=== PATIENT | male | born 1940 | race Caucasian/White ===

== ENCOUNTER 2017-01-02 07:15 | Outpatient (CLI) | payer OTHER | END 2017-01-02 07:16 | disposition home or self-care (01) | DX: E11.9 Type 2 diabetes mellitus without complications (principal); E78.5 Hyperlipidemia, unspecified; E03.9 Hypothyroidism, unspecified ==

== ENCOUNTER 2017-07-01 15:32 | Outpatient (CLI) | payer OTHER ==
[2017-07-01 14:05] LABS: ALBUMIN/GLOBULIN RATIO 1.3 (1.0-2.2); BILIRUBIN,TOTAL 0.3 mg/dL (0.2-1.0); CALCIUM 9.1 mg/dL (8.5-10.3); CREATININE 0.8 mg/dL (0.6-1.2); POTASSIUM 4.1 mmol/L (3.5-5.0); TOTAL PROTEIN 7.6 g/dL (6.7-8.2)
[2017-07-01 14:31] LABS: HEMOGLOBIN A1C 0.8 g/dL
== END 2017-07-01 15:33 | disposition home or self-care (01) ==
LOC: LAB.WCP 15:32
PROVIDERS: ATTEND Family Medicine
DX: E11.9 Type 2 diabetes mellitus without complications (principal); Z12.5 Encounter for screening for malignant neoplasm of prostate
CPT/HCPCS: 36415; 80053; 82043; 83036; 84153

== ENCOUNTER 2017-12-31 08:00 | Outpatient (CLI) | payer OTHER ==
[2017-12-31 12:39] LABS: BASOPHILS # (AUTO) 0.1 10^3/uL (0.0-0.1); BASOPHILS % (AUTO) 0.6 %; EOSINOPHILS # (AUTO) 0.6 10^3/uL (0.0-0.7); EOSINOPHILS % (AUTO) 5.7 %; HGB - HEMOGLOBIN 13.2 g/dL (14.0-18.0); LYMPHOCYTES % (AUTO) 30.3 %; MEAN CORPUSCULAR HEMOGLOBIN 29.4 pg (27.0-31.0); MEAN CORPUSCULAR HGB CONC 33.4 g/dL (32.0-36.0); MEAN PLATELET VOLUME 9.7 fL (7.4-11.4); NEUTROPHILS # (AUTO) 5.3 10^3/uL (1.5-6.6); NEUTROPHILS % (AUTO) 53.4 %; PLT - PLATELET COUNT 250 10^3/uL (130-450); RED BLOOD COUNT 4.51 10^6/uL (4.70-6.10); RED CELL DISTRIBUTION WIDTH 14.3 % (12.0-15.0)
[2017-12-31 12:55] LABS: ALBUMIN 4.3 g/dL (3.2-5.5); ALBUMIN/GLOBULIN RATIO 1.3 (1.0-2.2); ALKALINE PHOSPHATASE 62 IU/L (42-121); ALT ALANINE AMINOTRANSFERASE 26 IU/L (10-60); AST ASPARTATE AMINOTRANSFERASE 23 IU/L (10-42); BILIRUBIN,TOTAL 0.3 mg/dL (0.2-1.0); BUN - BLOOD UREA NITROGEN 23 mg/dL (6-20); CALCIUM 9.1 mg/dL (8.5-10.3); CARBON DIOXIDE - CO2 26 mmol/L (21-32); CHLORIDE 106 mmol/L (101-111); CHOL/HDL RATIO 3.7 (<5.0); CHOLESTEROL 85 mg/dL; CREATININE 0.8 mg/dL (0.6-1.2); GFR - MDRD 94 (>89); GLUCOSE 83 mg/dL (70-100); HDL CHOLESTEROL 23 mg/dL; LDL CHOLESTEROL,CALCULATED 25 mg/dL; LDL/HDL RATIO 1.1 (<3.6); SODIUM 138 mmol/L (135-145); TOTAL PROTEIN 7.6 g/dL (6.7-8.2); VLDL CHOLESTEROL 37 mg/dL
[2017-12-31 15:27] LABS: HB2 TOTAL 14.8 g/dL; HEMOGLOBIN A1C 0.73 g/dL; HEMOGLOBIN A1C % 6.7 % (4.6-6.2)
== END 2017-12-31 08:01 ==
LOC: LAB.WCP 08:00
PROVIDERS: ATTEND Family Medicine
DX: E11.9 Type 2 diabetes mellitus without complications (principal); E03.9 Hypothyroidism, unspecified
CPT/HCPCS: 36415; 80053; 80061; 83036; 83721; 84439; 84481; 85025

== ENCOUNTER 2018-07-07 07:02 | Outpatient (CLI) | payer OTHER ==
[2018-07-07 14:14] LABS: ALBUMIN 4.3 g/dL (3.2-5.5); ALBUMIN/GLOBULIN RATIO 1.2 (1.0-2.2); ALKALINE PHOSPHATASE 65 IU/L (42-121); ALT ALANINE AMINOTRANSFERASE 25 IU/L (10-60); AST ASPARTATE AMINOTRANSFERASE 20 IU/L (10-42); BILIRUBIN,TOTAL 0.8 mg/dL (0.2-1.0); BUN - BLOOD UREA NITROGEN 32 mg/dL (6-20); CALCIUM 9.6 mg/dL (8.5-10.3); CARBON DIOXIDE - CO2 25 mmol/L (21-32); CHLORIDE 103 mmol/L (101-111); CHOL/HDL RATIO 2.7 (<5.0); CHOLESTEROL 93 mg/dL; GFR - MDRD 73 (>89); GLUCOSE 89 mg/dL (70-100); HDL CHOLESTEROL 35 mg/dL; LDL CHOLESTEROL,CALCULATED 28 mg/dL; LDL/HDL RATIO 0.8 (<3.6); SODIUM 138 mmol/L (135-145); TOTAL PROTEIN 7.8 g/dL (6.7-8.2); VLDL CHOLESTEROL 30 mg/dL
[2018-07-07 14:28] LABS: BASOPHILS # (AUTO) 0.1 10^3/uL (0.0-0.1); BASOPHILS % (AUTO) 0.8 %; EOSINOPHILS # (AUTO) 0.6 10^3/uL (0.0-0.7); EOSINOPHILS % (AUTO) 5.9 %; HGB - HEMOGLOBIN 13.5 g/dL (14.0-18.0); LYMPHOCYTES # (AUTO) 3.4 10^3/uL (1.5-3.5); LYMPHOCYTES % (AUTO) 35.2 %; MEAN CORPUSCULAR HEMOGLOBIN 29.2 pg (27.0-31.0); MEAN CORPUSCULAR HGB CONC 33.8 g/dL (32.0-36.0); MEAN CORPUSCULAR VOLUME 86.1 fL (80.0-94.0); MEAN PLATELET VOLUME 9.4 fL (7.4-11.4); MONOCYTES # (AUTO) 0.9 10^3/uL (0.0-1.0); MONOCYTES % (AUTO) 9.1 %; NEUTROPHILS # (AUTO) 4.7 10^3/uL (1.5-6.6); PLT - PLATELET COUNT 269 10^3/uL (130-450); RED BLOOD COUNT 4.63 10^6/uL (4.70-6.10); RED CELL DISTRIBUTION WIDTH 14.1 % (12.0-15.0); WHITE BLOOD COUNT 9.7 x10^3/uL (4.8-10.8)
[2018-07-07 14:36] LABS: HB2 TOTAL 14.4 g/dL; HEMOGLOBIN A1C 0.7 g/dL; HEMOGLOBIN A1C % 6.6 % (4.6-6.2)
== END 2018-07-07 07:03 ==
LOC: LAB.WCP 07:02
PROVIDERS: ATTEND Family Medicine
DX: I10 Essential (primary) hypertension (principal); E78.5 Hyperlipidemia, unspecified; E11.9 Type 2 diabetes mellitus without complications; Z12.5 Encounter for screening for malignant neoplasm of prostate; E03.9 Hypothyroidism, unspecified
CPT/HCPCS: 36415; 80053; 80061; 82043; 83036; 83721; 84153; 84443; 85025

== ENCOUNTER 2018-10-11 07:19 | Outpatient (CLI) | payer OTHER ==
[2018-10-11] MEDS ORDERED: IOVERSOL 320 50 ML VIAL ONE (07:29)
[2018-10-11] MEDS ORDERED: IOVERSOL 320 100 ML VIAL IVP ONE ×2 (07:29→08:27)
[2018-10-11 08:06] LABS: CREATININE 0.8 mg/dL (0.6-1.2)
--- NOTE | 2018-10-11 09:27 | CT Report ---
Reason: LUNG CA Procedure Date: 10/11/2018 Accession Number: [id number] / [id number] Procedure: CT - Abdomen/Pelvis W/WO CPT Code: FULL RESULT: EXAM: CT ABDOMEN WITHOUT AND WITH CONTRAST EXAM DATE: 10/11/2018 08:32 AM. HISTORY: LUNG CA. COMPARISON: None. TECHNIQUE: Routine helical CT imaging was performed through the abdomen before and after administration of IV contrast: OPTI 320 90mL. Enteric contrast: No. Reconstruction: Coronal and sagittal. In accordance with CT protocol optimization, one or more of the following dose reduction techniques were utilized for this exam: automated exposure control, adjustment of mA and/or KV based on patient size, or use of iterative reconstructive technique. FINDINGS: Lung Bases: Innumerable randomly distributed pulmonary nodules throughout the right and left lung bases measuring up to 8 mm in the right lung base (series 5, image 1). Bilateral small pleural effusions. Liver: Normal. No masses. Gallbladder/Bile Ducts: Unremarkable. Spleen: Normal. Pancreas: Normal. No masses or ductal obstruction. Adrenal Glands: Normal. Kidneys: 3 simple appearing cysts in the left kidney measuring up to 5.6 cm. No hydronephrosis or renal calculus. Peritoneal Cavity/Bowel: Diverticulosis without diverticulitis. No bowel obstruction or inflammatory process associated with the bowel. The appendix is well visualized and normal. Vasculature: No aneurysms or other significant abnormality. Bones: No significant abnormality. Other: None. IMPRESSION: 1. Innumerable randomly distributed pulmonary nodules throughout the right and left lung bases measuring up to 8 mm in the right lung base. Findings consistent with known diagnosis of lung cancer. 2. No evidence of metastatic disease below the diaphragm. RADIA
[2018-10-14] MEDS ORDERED: IOVERSOL 320 50 ML VIAL PO ONE (16:40)
== END 2018-10-11 07:20 | disposition home or self-care (01) ==
LOC: DI 07:19
PROVIDERS: ATTEND Nurse Practitioner Adult Health
DX: C34.90 Malignant neoplasm of unspecified part of unspecified bronchus or lung (principal)
CPT/HCPCS: 36415; 74178; 82565; Q9967

== ENCOUNTER 2018-11-01 07:34 | Outpatient (CLI) | payer OTHER ==
[2018-11-01] MEDS ORDERED: GADOBUTROL 10 MMOL/10 ML VIAL ONE (09:02)
[2018-11-01] MEDS ORDERED: GADOBUTROL 10 MMOL/10 ML VIAL IVP ONE (10:08)
--- NOTE | 2018-11-01 12:53 | MRI Report ---
Reason: LUNG CA Procedure Date: 11/01/2018 Accession Number: [id number] / [id number] Procedure: MRI - Brain W/WO CPT Code: FULL RESULT: EXAM: MRI BRAIN WITHOUT AND WITH CONTRAST EXAM DATE: 11/01/2018 09:01 AM. CLINICAL HISTORY: Pain; headache. COMPARISON: None. TECHNIQUE: Multiplanar, multisequence T1-weighted and fluid-sensitive MR sequences of the brain were performed. Sequences optimized for routine evaluation. Other: None. IV Contrast: 8 mL Gadavist. FINDINGS: The diffusion-weighted images are normal. There is no evidence of acute or subacute cerebral infarction. The corpus callosum is of normal size and configuration. The pituitary and sella are normal. The craniocervical junction is normal. There is a mass partially within the provided field of view best demonstrated on the coronal T2 fat-saturated images measuring 2.2 x 2.2 cm (16, 901). This appears to likely represent adenopathy within the right spinal accessory chain. Again this is only partially within the provided field of view. It is suspicious for metastatic adenopathy. Further evaluation can be obtained with a CT scan of the neck with contrast. Recommend correlation. The bilateral parotid spaces exhibit normal signal intensity. The cerebral vascular flow voids are patent. The images are degraded by motion. There are small mucous retention cysts at the base of the right and left maxillary sinuses. There is mild mucosal thickening of the right frontal sinus, right frontal recess, and the bilateral ethmoid air cells. There is no obstructing pattern of sinus disease. The FLAIR images demonstrate multiple punctate and confluent areas of T2 hyperintensity within the subcortical, deep, and periventricular white matter. This is consistent with a mild to moderate degree of chronic small vessel ischemia. There is enlargement of the lateral ventricles and the third ventricle but not out of proportion to the enlargement of the cerebral sulci. This is consistent with a mild degree of generalized volume loss. There is fluid signal intensity within multiple mastoid air cells bilaterally. The cerebral vascular flow voids are patent. The T2* sequence is normal. There is no evidence of subacute or chronic hemorrhage. There is normal enhancement within the deep venous sinuses. IMPRESSION: 1. There is no evidence of acute or subacute cerebral infarction. 2. There is a mass partially within the provided field of view which appears to be within the right spinal accessory chain measuring 2.2 x 2.2 cm. This likely reflects adenopathy of the right spinal accessory chain. The overall appearance would favor metastatic adenopathy. Recommend correlation. Further evaluation can be obtained with CT scan of the neck with contrast. 3. There is a mild to moderate degree of chronic small vessel ischemia and a mild degree of generalized volume loss. The call report notification system was initiated by Dr. Jorden Flores at 10:39 AM on 11/01/2018. The above findings were discussed with Marlo Castano by Dr. Jorden Flores at 11:29 AM on 11/01/2018.
== END 2018-11-01 07:35 | disposition home or self-care (01) ==
LOC: DI 07:34
PROVIDERS: ATTEND Nurse Practitioner Adult Health
DX: C34.90 Malignant neoplasm of unspecified part of unspecified bronchus or lung (principal); I67.82 Cerebral ischemia
CPT/HCPCS: 70553; A9585

== ENCOUNTER 2018-11-04 08:14 | Outpatient (CLI) | payer OTHER ==
[2018-11-04 08:56] LABS: INR 1.2 (0.8-1.2); PT - PROTHROMBIN TIME 13.1 secs (9.9-12.6)
[2018-11-04 09:03] LABS: PARTIAL THROMBOPLASTIN TIME 32.4 secs (24.9-33.3)
--- NOTE | 2018-11-04 11:41 | Ultrasound Report ---
Reason: METS LUNG CA Procedure Date: 11/04/2018 Accession Number: [id number] / [id number] Procedure: US - Thoracentesis Puncture CPT Code: FULL RESULT: EXAM: ULTRASOUND-GUIDED THORACENTESIS EXAM DATE: 11/04/2018 10:51 AM. CLINICAL HISTORY: Metastatic LUNG CA. COMPARISON: 09/27/2018. TECHNIQUE: Risks, benefits and alternatives to the procedure were discussed with the patient. All questions answered. Written and verbal consent obtained. Patient was placed in the sitting position and the skin overlying the right effusion marked with sonographic guidance. The skin was sterilely prepped and draped, and 1% buffered lidocaine and 0.5% Sensorcaine was used for local anesthesia. An 18-gauge Tello centesis catheter was advanced into the pleural space and fluid aspirated. Upon completion, the catheter was removed. FINDINGS: A total of 110 mL of bloody fluid was removed without immediate complication and sent to the lab for evaluation. Patient tolerated procedure well. Postprocedure Chest X-Ray shows no evidence of a pneumothorax. IMPRESSION: Ultrasound-guided diagnostic right thoracentesis without immediate complications. RADIA
[2018-11-04] MEDS ORDERED: BUPIVACAINE 0.5%-EPI 1:200000 PF 10 ML VIAL SUBQ ONE (11:51)
[2018-11-04] MEDS ORDERED: BUFFERED LIDOCAINE 10 ML SYRINGE IU ONE (11:51)
--- NOTE | 2018-11-04 12:03 | XRAY Report ---
Reason: S/P THORA Procedure Date: 11/04/2018 Accession Number: [id number] / [id number] Procedure: XR - Chest 1 View X-Ray CPT Code: 93391 FULL RESULT: EXAM: CHEST RADIOGRAPHY EXAM DATE: 11/04/2018 11:33 AM. CLINICAL HISTORY: Status post right thoracentesis. COMPARISON: 09/27/2018 TECHNIQUE: 1 view. FINDINGS IMPRESSION: No pneumothorax status post right thoracentesis. RADIA
== END 2018-11-04 08:15 | disposition home or self-care (01) ==
LOC: DI 08:14
PROVIDERS: ATTEND Internal Medicine Hematology & Oncology
DX: C34.90 Malignant neoplasm of unspecified part of unspecified bronchus or lung (principal)
CPT/HCPCS: 32555; 36415; 71045; 85610; 85730

== ENCOUNTER 2018-12-09 08:04 | Outpatient (CLI) | payer OTHER | END 2018-12-09 08:05 | disposition home or self-care (01) | LOC: DI.WCP 08:04 | PROVIDERS: ATTEND Family Medicine | DX: Z53.9 Procedure and treatment not carried out, unspecified reason (principal) ==

== ENCOUNTER 2018-12-30 06:07 | Outpatient (CLI) | payer OTHER | END 2018-12-30 06:08 | disposition critical access hospital (66) | LOC: EMS 06:07 | PROVIDERS: ATTEND Surgery | DX: R40.20 Unspecified coma (principal); C34.90 Malignant neoplasm of unspecified part of unspecified bronchus or lung; Z79.899 Other long term (current) drug therapy | CPT/HCPCS: A0425; A0427 ==

== ENCOUNTER 2018-12-30 06:23 | Emergency (ER) | payer OTHER ==
[2018-12-30] MEDS ORDERED: HEPARIN 5,000 UNIT/ML VIAL ONE (06:35)
[2018-12-30] MEDS ORDERED: CLOPIDOGREL 300 MG TABLET PO ONE (06:35)
[2018-12-30] MEDS ORDERED: NITROGLYCERIN SL 0.4 MG TABLET SL ONE (06:35)
[2018-12-30] MEDS ORDERED: ASPIRIN CHEW 81 MG TABLET ONE (06:35)
[2018-12-30] MEDS ORDERED: METOPROLOL TARTRATE 50 MG TABLET ONE (06:35)
[2018-12-30] MEDS ORDERED: HEPARIN 25000UNITS/500ML (D5W) 25,000 UNIT/500 ML BAG IV ONE (06:36)
[2018-12-30] MEDS ORDERED: PROPOFOL 200 MG/20 ML VIAL IVP ONE ×2 (06:36→06:38)
[2018-12-30] MEDS ORDERED: PROPOFOL 1000 MG/100 ML 100 ML IV ONE (06:37)
[2018-12-30] MEDS ORDERED: MIDAZOLAM 2 MG/2 ML VIAL ONE (06:37)
[2018-12-30] MEDS ORDERED: KETAMINE 500 MG/10 ML VIAL ONE (06:37)
[2018-12-30] MEDS ORDERED: ETOMIDATE 40 MG/20 ML VIAL IVP ONE (06:37)
[2018-12-30] MEDS ORDERED: SUCCINYLCHOLINE 200 MG/10 ML VIAL ONE (06:38)
[2018-12-30] MEDS ORDERED: ROCURONIUM 50 MG/5 ML VIAL IVP ONE (06:38)
--- NOTE | 2018-12-30 06:41 | ED Physician Documentation ---
PD HPI ALTERED MENTAL STATUS - Stated complaint Stated Complaint: UNRESPONSIVE - History obtained from History obtained from: Family, EMS - History of Present Illness Timing - onset: Unknown (last known normal was 22:00 last night. This morning at 5:30 AM, found he was pale, diaphoretic and minimally responsive) Timing - details: Still present Quality / character: Unresponsive Contributing factors: Diabetic. No: Anticoagulated Basline status: Alert and oriented X 3, Ambulatory, Independent Similar symptoms before: Has not had sx before - Additional information Additional information: found patient unresponsive at 5:30 AM this morning; she says he was baselin e (AAOx 3) when they went to sleep last night at 22:00. BIBA, given duoneb en route for dyspnea and 82% pulse ox (on 2 liters when medics first arrived). Per medic report, patient was minimally responsive when they first arrived but en route has become completely unresponsive to verbal, tactile, and painful stimuli. On arrival, breathing is assisted with BVM and he is unresponsive to even painful stimulus. I had brief discussion with family regarding the emergent need for intubation to ensure that this would be in accordance with any written or discussed issues regarding DNR/advanced directive issues, and family indicates that patient has not written nor indicated any wish to withhold any such treatment. Review of Systems Unable to obtain: Unresponsive PD PAST MEDICAL HISTORY - Past Medical History Past Medical History: Yes Cardiovascular: Hypertension Endocrine/Autoimmune: Type 1 diabetes, HyPOthyroidism Other Past Medical History: lung cancer (started PO chemotherapy this past weekend) - Present Medications Home Medications: Ambulatory Orders Medication Instructions Recorded Confirmed Aspirin [Aspir 81] 81 mg PO DAILY 02/16/15 11/16/18 Felodipine [Felodipine ER] 10 mg PO DAILY 02/16/15 11/16/18 Hydrochlorothiazide 25 mg PO DAILY 02/16/15 11/16/18 Insulin Glargine,Hum.rec.anlog 50 unit SQ DAILY 02/16/15 11/16/18 [Lantus] Levothyroxine [Synthroid] 25 mcg PO DAILY 02/16/15 11/16/18 Metformin HCl [Glucophage] 1,000 mg PO BID 02/16/15 11/16/18 raNITIdine [Zantac] 1 mg ORAL BID 02/16/15 11/16/18 Atorvastatin [Lipitor] 10 mg 12/30/18 Dabrafenib Mesylate [Tafinlar] 75 mg PO 12/30/18 Metoprolol Tartrate 100 mg PO 12/30/18 Trametinib Dimethyl Sulfoxide 2 mg PO 12/30/18 [Mekinist] - Allergies Allergies/Adverse Reactions: Allergies Allergy/AdvReac Type Severity Reaction Status Date / Time No Known Drug Allergies Allergy Verified 12/30/18 06:29 PD ED PE NORMAL - Vitals Vital signs reviewed: Yes - General General: Well developed/nourished - Cardiac Cardiac: RRR, No murmur - Abdomen Abdomen: Soft, Non tender, Non distended - Extremities Extremities: No edema - Neuro Eye Opening: None Motor: None Verbal: None GCS Score: 3 PD ED PE EXPANDED - General General: Unresponsive, Other (spontaneous respirations assisted with BVM) - Eyes Eyes: Other (pupils are equal, midsize, minimally reactive. no intentional gaze, no blink or corneal reflex) - Respiratory Respiratory: Rhonchi (diffuse course rhonchi; diminished right lung uribe) Results - Vitals Vitals: Vital Signs - 24 hr 12/30/18 12/30/18 12/30/18 06:24 07:07 07:10 Temperature 36.0 C L 35.5 C L 35.6 C L Heart Rate 83 61 67 Respiratory 20 10 L 15 Rate Blood Pressure 145/101 H 89/64 L 142/62 H O2 Saturation 78 L 94 12/30/18 12/30/18 12/30/18 07:18 07:30 07:34 Temperature 35.7 C L 35.7 C L Heart Rate 65 57 L 60 Respiratory 12 16 Rate Blood Pressure 90/71 90/71 O2 Saturation 95 91 L 12/30/18 12/30/18 12/30/18 07:42 07:50 07:52 Temperature 35.7 C L 35.7 C L 35.7 C L Heart Rate 64 56 L 50 L Respiratory 16 16 12 Rate Blood Pressure 62/45 L 75/62 L 93/58 L O2 Saturation 93 73 L 67 L 12/30/18 12/30/18 12/30/18 07:56 08:00 08:05 Temperature 35.7 C L 35.6 C L Heart Rate 71 62 70 Respiratory 24 13 10 L Rate Blood Pressure 93/58 L 139/66 H 165/67 H O2 Saturation 88 L 97 93 12/30/18 12/30/18 12/30/18 08:12 08:16 08:22 Temperature 35.4 C L 35.4 C L Heart Rate 70 63 69 Respiratory 22 22 22 Rate Blood Pressure 124/64 124/64 118/64 O2 Saturation 100 98 97 12/30/18 12/30/18 12/30/18 08:28 08:30 08:37 Temperature 35.3 C L 35.3 C L 35.3 C L Heart Rate 116 H 64 64 Respiratory 20 22 22 Rate Blood Pressure 107/63 108/62 110/63 O2 Saturation 97 95 96 12/30/18 12/30/18 12/30/18 08:44 08:47 08:51 Temperature 35.3 C L 35.3 C L 35.3 C L Heart Rate 63 64 62 Respiratory 17 18 22 Rate Blood Pressure 90/55 L 103/56 L 102/53 L O2 Saturation 99 95 96 12/30/18 12/30/18 08:58 09:03 Temperature 35.2 C L 35.2 C L Heart Rate 64 62 Respiratory 22 22 Rate Blood Pressure 111/53 L 101/59 L O2 Saturation 97 96 Oxygen O2 Source Mechanical ventilator - Labs Labs: Laboratory Tests 12/30/18 12/30/18 12/30/18 06:40 06:40 06:40 WBC 15.9 H RBC 5.05 Hgb 13.7 L Hct 41.2 L MCV 81.5 MCH 27.0 MCHC 33.2 RDW 14.8 Plt Count 448 MPV 8.2 Neut # (Auto) 12.9 H Lymph # (Auto) 2.0 [place]oup # (Auto) 0.9 Eos # (Auto) 0.0 Baso # (Auto) 0.1 Absolute Nucleated RBC 0.01 Nucleated RBC % 0.1 PT 13.3 H INR 1.2 APTT 35.4 H Bld Gas Analysis Time Sample Site ABG pH ABG pCO2 ABG pO2 ABG HCO3 ABG Total CO2 ABG O2 Saturation ABG Base Excess Kieran Test Respiration Rate O2 Delivery Device Vent Mode FiO2 Tidal Volume PEEP Pressure Support Vent Sodium 136 Potassium 4.3 Chloride 88 L Carbon Dioxide 40 H* Anion Gap 8.0 BUN 24 H Creatinine 0.6 Estimated GFR (MDRD) 131 Glucose 77 Lactic Acid Calcium 9.2 Total Bilirubin 0.6 AST 28 ALT 22 Alkaline Phosphatase 89 Troponin I B-Natriuretic Peptide Total Protein 7.9 Albumin 3.4 Globulin 4.5 H Albumin/Globulin Ratio 0.8 L Lipase 26 Urine Color Urine Clarity Urine pH Ur Specific [place] Urine Protein Urine Glucose (UA) Urine Ketones Urine Occult Blood Urine Nitrite Urine Bilirubin Urine Urobilinogen Ur Leukocyte Esterase Urine RBC Urine WBC Ur Squamous Epith Cells Urine Crystals Urine Bacteria Urine Casts Ur Microscopic Review Urine Culture Comments 12/30/18 12/30/18 12/30/18 06:40 06:40 06:59 WBC RBC Hgb Hct MCV MCH MCHC RDW Plt Count MPV Neut # (Auto) Lymph # (Auto) [place] # (Auto) Eos # (Auto) Baso # (Auto) Absolute Nucleated RBC Nucleated RBC % PT INR APTT Bld Gas Analysis Time Sample Site ABG pH ABG pCO2 ABG pO2 ABG HCO3 ABG Total CO2 ABG O2 Saturation ABG Base Excess Kieran Test Respiration Rate O2 Delivery Device Vent Mode FiO2 Tidal Volume PEEP Pressure Support Vent Sodium Potassium Chloride Carbon Dioxide Anion Gap BUN Creatinine Estimated GFR (MDRD) Glucose Lactic Acid Calcium Total Bilirubin AST ALT Alkaline Phosphatase Troponin I < 0.04 B-Natriuretic Peptide 34 Total Protein Albumin Globulin Albumin/Globulin Ratio Lipase Urine Color YELLOW Urine Clarity CLEAR Urine pH 6.0 Ur Specific [place] >=1.030 H Urine Protein >=300 Urine Glucose (UA) NEGATIVE Urine Ketones NEGATIVE Urine Occult Blood SMALL H Urine Nitrite NEGATIVE Urine Bilirubin NEGATIVE Urine Urobilinogen 0.2 (NORMAL) Ur Leukocyte Esterase NEGATIVE Urine RBC 0-5 Urine WBC 0-3 Ur Squamous Epith Cells RARE Squamous Urine Crystals 11-25 Ca Oxalate Urine Bacteria Rare Urine Casts 11-25 Granular Casts Ur Microscopic Review INDICATED Urine Culture Comments NOT INDICATED 12/30/18 12/30/18 06:59 07:32 WBC RBC Hgb Hct MCV MCH MCHC RDW Plt Count MPV Neut # (Auto) Lymph # (Auto) [place] # (Auto) Eos # (Auto) Baso # (Auto) Absolute Nucleated RBC Nucleated RBC % PT INR APTT Bld Gas Analysis Time 0742 Sample Site RIGHT RADIAL ABG pH 7.31 L ABG pCO2 74 H* ABG pO2 63 L ABG HCO3 37.0 H ABG Total CO2 39.0 H ABG O2 Saturation 88 L ABG Base Excess 11.0 H Kieran Test POSITIVE Respiration Rate 16 O2 Delivery Device VENTILATOR Vent Mode SIMV FiO2 100.00 Tidal Volume 500 PEEP 5 Pressure Support Vent 12 Sodium Potassium Chloride Carbon Dioxide Anion Gap BUN Creatinine Estimated GFR (MDRD) Glucose Lactic Acid 1.0 Calcium Total Bilirubin AST ALT Alkaline Phosphatase Troponin I B-Natriuretic Peptide Total Protein Albumin Globulin Albumin/Globulin Ratio Lipase Urine Color Urine Clarity Urine pH Ur Specific [place] Urine Protein Urine Glucose (UA) Urine Ketones Urine Occult Blood Urine Nitrite Urine Bilirubin Urine Urobilinogen Ur Leukocyte Esterase Urine RBC Urine WBC Ur Squamous Epith Cells Urine Crystals Urine Bacteria Urine Casts Ur Microscopic Review Urine Culture Comments - Rads (name of study) chest xray Radiology: Prelim report reviewed, See rad report CT head Radiology: Prelim report reviewed, See rad report Procedures - Intubation Provider: Emergency physician Medications: Propofol, Succinylcholine Blade: Glidescope Tube: Size-enter number (7.5), Cuffed, Marked at lips-enter cm (23) Confirmation: Direct visualization (via glidescope), Bilateral breath sounds, No abdominal breath sound, End tidal CO2, Pulse ox, Chest xray Complications: No compications PD MEDICAL DECISION MAKING - ED course Complexity details: reviewed old records, reviewed results, re-evaluated patient, considered differential, d/w family ED course: within 1-2 minutes of intubation, pulse ox improved to 100%. He started showing purposeful movements after approximately 10-15 minutes and even opened eyes on command. He was thus given more propofol boluses and drip was increased until he was sedated adequately for CTH. He subsequently became hypotensive and this sustained despite decreasing the propofol drip and ongoing IV fluid boluses. He subsequently desaturated gradually to as low as mid 60s, but both his pulse ox and his blood pressure rapidly improved with bag-valve mask. At this point I turned the case over to Dr. Bertrand (oncoming ED physician). Central line placed by Dr. Bertrand and he arranged for transport of patient (ICU is full at [facility]). - Critical Care Time(min): 60 Time Includes: Direct patient care, Review records, Reassess patient, Document care, Coordinate care, Family consult for tx aug, See progress note Data interpretation: Labs, Pulse ox, ABG, CXR, See progress note Procedures included in critical care time: See progress note Procedures excluded from critical care time: See progress note Departure - Departure Disposition: 02 Transfer Acute Care Hosp Clinical Impression: Respiratory failure, Altered mental status, Hypoxia, Metastatic primary lung cancer Condition: Serious
[2018-12-30] MEDS ORDERED: PROPOFOL 1000 MG/100 ML 100 ML IV STA ×2 (06:55→06:57)
[2018-12-30] MEDS ORDERED: SUCCINYLCHOLINE 200 MG/10 ML VIAL IVP STA (06:55)
[2018-12-30] MEDS ORDERED: SODIUM CHLORIDE 0.9% 500 ML IV STA (06:55)
[2018-12-30] MEDS ORDERED: PROPOFOL 200 MG/20 ML VIAL IVP STA ×3 (06:56→06:57)
[2018-12-30 06:58] LABS: BASOPHILS # (AUTO) 0.1 10^3/uL (0.0-0.1); BASOPHILS % (AUTO) 0.8 %; EOSINOPHILS % (AUTO) 0.2 %; HGB - HEMOGLOBIN 13.7 g/dL (14.0-18.0); LYMPHOCYTES % (AUTO) 12.7 %; MEAN CORPUSCULAR HGB CONC 33.2 g/dL (32.0-36.0); MEAN CORPUSCULAR VOLUME 81.5 fL (80.0-94.0); MEAN PLATELET VOLUME 8.2 fL (7.4-11.4); MONOCYTES # (AUTO) 0.9 10^3/uL (0.0-1.0); MONOCYTES % (AUTO) 5.4 %; NEUTROPHILS # (AUTO) 12.9 10^3/uL (1.5-6.6); NEUTROPHILS % (AUTO) 80.9 %; PLT - PLATELET COUNT 448 10^3/uL (130-450); RED BLOOD COUNT 5.05 10^6/uL (4.70-6.10); RED CELL DISTRIBUTION WIDTH 14.8 % (12.0-15.0); WHITE BLOOD COUNT 15.9 x10^3/uL (4.8-10.8)
[2018-12-30 06:59] LABS: BILIRUBIN,URINE NEGATIVE (NEGATIVE); GLUCOSE, URINE (UA) NEGATIVE (NEGATIVE); KETONES,URINE (UA) NEGATIVE (NEGATIVE); LEUKOCYTE ESTERASE, URINE NEGATIVE (NEGATIVE); NITRITE,URINE NEGATIVE (NEGATIVE); OCCULT BLOOD,URINE SMALL (NEGATIVE); PROTEIN,URINE >=300 mg/dL (NEGATIVE); UROBILINOGEN,URINE 0.2 (NORMAL) E.U./dL (NORMAL)
[2018-12-30 07:03] LABS: CLARITY,URINE CLEAR (CLEAR)
[2018-12-30 07:13] LABS: INR 1.2 (0.8-1.2); PT - PROTHROMBIN TIME 13.3 secs (9.9-12.6)
--- NOTE | 2018-12-30 07:14 | XRAY Report ---
Reason: chest pain Procedure Date: 12/30/2018 Accession Number: [id number] / [id number] Procedure: XR - Chest 1 View X-Ray CPT Code: 18596 FULL RESULT: EXAM: CHEST RADIOGRAPHY EXAM DATE: 12/30/2018 06:56 AM. CLINICAL HISTORY: Chest pain. COMPARISON: CHEST 2 VIEW 12/09/2018 7:55 AM ABDOMEN/PELVIS W/WO 10/11/2018 8:15 AM. TECHNIQUE: Supine AP view. FINDINGS: Lungs/Pleura: The endotracheal tube is now present with its tip 5 cm above the fanny. There is a new moderate right pleural effusion. As before, there are innumerable tiny nodules throughout both lungs. There is new mild bandlike opacity at the right lung base suggesting atelectasis. There is a small left pleural effusion, as before. There is increased mild wispy left basilar airspace opacity suggesting atelectasis. There is no gross pneumothorax on this supine study. Mediastinum: Within exam limitations, the cardiomediastinal contour is normal. There is mild aortic arch calcification. There is an orogastric tube coursing into the stomach, tip not visualized. Other: None. IMPRESSION: 1. Endotracheal tube 5 cm above the fanny. 2. Orogastric tube coursing into the stomach. 3. New moderate right and unchanged small left pleural effusions. 4. Increased mild wispy bibasilar airspace opacities suggesting atelectasis. 5. Innumerable tiny bilateral lung nodules as before suggesting metastases. RADIA
[2018-12-30 07:16] LABS: BACTERIA,URINE Rare /HPF (None Seen); RBC,URINE 0-5 /HPF (0-5); SQUAMOUS EPITHELIAL CELL,UR RARE Squamous (<= Few)
[2018-12-30 07:18] LABS: CRYSTALS,URINE 11-25 Ca Oxalate /LPF
[2018-12-30 07:20] LABS: PARTIAL THROMBOPLASTIN TIME 35.4 secs (24.9-33.3)
[2018-12-30] MEDS ORDERED: KETAMINE 500 MG/10 ML VIAL IVP STA (07:27)
[2018-12-30 07:33] LABS: ALBUMIN 3.4 g/dL (3.2-5.5); ALBUMIN/GLOBULIN RATIO 0.8 (1.0-2.2); BILIRUBIN,TOTAL 0.6 mg/dL (0.2-1.0); CALCIUM 9.2 mg/dL (8.5-10.3); CREATININE 0.6 mg/dL (0.6-1.2); TOTAL PROTEIN 7.9 g/dL (6.7-8.2)
--- NOTE | 2018-12-30 07:44 | CT Report ---
Reason: AMS Procedure Date: 12/30/2018 Accession Number: [id number] / [id number] Procedure: CT - HEAD WO CPT Code: FULL RESULT: EXAM: CT HEAD EXAM DATE: 12/30/2018 07:09 AM. CLINICAL HISTORY: Altered mental status. COMPARISON: BRAIN W/WO 11/01/2018 9:01 AM. TECHNIQUE: Multiaxial CT images were obtained from the foramen magnum to the vertex. Reformats: Sagittal and coronal. IV contrast: None. In accordance with CT protocol optimization, one or more of the following dose reduction techniques were utilized for this exam: automated exposure control, adjustment of mA and/or KV based on patient size, or use of iterative reconstructive technique. FINDINGS: Parenchyma: No intraparenchymal hemorrhage. No evidence of mass, midline shift, or CT findings of infarction. Gonzales-white differentiation is distinct. Extraaxial Spaces: Normal for age. No subdural or epidural collections identified. Ventricles: Normal in size and position. Sinuses and Orbits: The patient is intubated. A nasoenteric tube is present. There is mild mucosal thickening of the bilateral ethmoid air cells. There are polyps or mucosal retention cyst in the bilateral maxillary sinuses. There is mild mucosal thickening of the right frontal sinus. The visualized paranasal sinuses and mastoid air cells are otherwise clear. The orbits are unremarkable. Bones: No evidence of fracture or calvarial defect. Other: There is a probable enlarged right posterior cervical lymph node partially visualized at the inferior margin of the images. The included portion measures approximately 1.8 x 1.6 cm in the axial plane (series 3 image 1). This corresponds to the mass seen on prior brain MRI. IMPRESSION: 1. No intracranial hemorrhage, mass-effect, CT evidence of acute infarct, or other acute intracranial abnormality. 2. Right posterior enlarged cervical lymph node partially visualized at the inferior margin of the images, corresponding to the mass seen on prior brain MRI. RADIA
[2018-12-30 07:45] LABS: ABG PH 7.31 (7.35-7.45); ABG PO2 63 mmHg (80-100)
[2018-12-30 07:46] LABS: ABG OXYGEN SATURATION 88 % (94-98); ALLEN TEST POSITIVE
[2018-12-30 07:49] LABS: ABG PCO2 74 mmHg (34-45)
[2018-12-30] MEDS ORDERED: SODIUM CHLORIDE 0.9% 1,000 ML IV ONE ×2 (07:53→08:49)
[2018-12-30] MEDS ORDERED: VECURONIUM 10 MG VIAL IVP STA (07:59)
[2018-12-30] MEDS ORDERED: WATER FOR INJECTION,STERILE 10 ML ONE (08:06)
--- NOTE | 2018-12-30 08:41 | ED Physician Documentation ---
History of Present Illness - Stated complaint Stated Complaint: UNRESPONSIVE - Chief complaint Chief Complaint: Critical Care - History obtained from History obtained from: EMS - History of Present Illness Timing: Today Pain level max: 0 Pain level now: 0 PD PAST MEDICAL HISTORY - Past Medical History Past Medical History: Yes Cardiovascular: Hypertension, High cholesterol Respiratory: COPD Endocrine/Autoimmune: Type 2 diabetes, HyPOthyroidism GI: GERD : None HEENT: None Psych: None Musculoskeletal: Osteoarthritis Derm: None Other Past Medical History: lung CA - Past Surgical History General: Colonoscopy, EGD - Present Medications Home Medications: Ambulatory Orders Medication Instructions Recorded Confirmed Aspirin [Aspir 81] 81 mg PO DAILY 02/16/15 11/16/18 Felodipine [Felodipine ER] 10 mg PO DAILY 02/16/15 11/16/18 Hydrochlorothiazide 25 mg PO DAILY 02/16/15 11/16/18 Insulin Glargine,Hum.rec.anlog 50 unit SQ DAILY 02/16/15 11/16/18 [Lantus] Levothyroxine [Synthroid] 25 mcg PO DAILY 02/16/15 11/16/18 Metformin HCl [Glucophage] 1,000 mg PO BID 02/16/15 11/16/18 raNITIdine [Zantac] 1 mg ORAL BID 02/16/15 11/16/18 Atorvastatin [Lipitor] 10 mg 12/30/18 Dabrafenib Mesylate [Tafinlar] 75 mg PO 12/30/18 Metoprolol Tartrate 100 mg PO 12/30/18 Trametinib Dimethyl Sulfoxide 2 mg PO 12/30/18 [Mekinist] - Allergies Allergies/Adverse Reactions: Allergies Allergy/AdvReac Type Severity Reaction Status Date / Time No Known Drug Allergies Allergy Verified 12/30/18 06:29 - Social History Does the pt smoke?: No Smoking Status: Never smoker - POLST Patient has POLST: No PD ED PE NORMAL - Vitals Vital signs reviewed: Yes - General General: Other (intubated) - HEENT HEENT: Moist mucous membranes - Neck Neck: Other (LAD B) - Cardiac Cardiac: RRR - Respiratory Respiratory: Other (rhonchi B) - Abdomen Abdomen: Other (distended abd) - Derm Derm: Warm and dry - Extremities Extremities: No edema - Neuro Neuro: Other (intubated) Results - Vitals Vitals: Vital Signs - 24 hr 12/30/18 12/30/18 12/30/18 06:24 07:07 07:10 Temperature 36.0 C L 35.5 C L 35.6 C L Heart Rate 83 61 67 Respiratory 20 10 L 15 Rate Blood Pressure 145/101 H 89/64 L 142/62 H O2 Saturation 78 L 94 12/30/18 12/30/18 12/30/18 07:18 07:30 07:34 Temperature 35.7 C L 35.7 C L Heart Rate 65 57 L 60 Respiratory 12 16 Rate Blood Pressure 90/71 90/71 O2 Saturation 95 91 L 12/30/18 12/30/18 12/30/18 07:42 07:50 07:52 Temperature 35.7 C L 35.7 C L 35.7 C L Heart Rate 64 56 L 50 L Respiratory 16 16 12 Rate Blood Pressure 62/45 L 75/62 L 93/58 L O2 Saturation 93 73 L 67 L 12/30/18 12/30/18 12/30/18 07:56 08:00 08:05 Temperature 35.7 C L 35.6 C L Heart Rate 71 62 70 Respiratory 24 13 10 L Rate Blood Pressure 93/58 L 139/66 H 165/67 H O2 Saturation 88 L 97 93 12/30/18 12/30/18 12/30/18 08:12 08:16 08:22 Temperature 35.4 C L 35.4 C L Heart Rate 70 63 69 Respiratory 22 22 22 Rate Blood Pressure 124/64 124/64 118/64 O2 Saturation 100 98 97 12/30/18 12/30/18 12/30/18 08:28 08:30 08:37 Temperature 35.3 C L 35.3 C L 35.3 C L Heart Rate 116 H 64 64 Respiratory 20 22 22 Rate Blood Pressure 107/63 108/62 110/63 O2 Saturation 97 95 96 12/30/18 12/30/18 12/30/18 08:44 08:47 08:51 Temperature 35.3 C L 35.3 C L 35.3 C L Heart Rate 63 64 62 Respiratory 17 18 22 Rate Blood Pressure 90/55 L 103/56 L 102/53 L O2 Saturation 99 95 96 12/30/18 12/30/18 12/30/18 08:58 09:03 09:22 Temperature 35.2 C L 35.2 C L 35.2 C L Heart Rate 64 62 64 Respiratory 22 22 22 Rate Blood Pressure 111/53 L 101/59 L 111/50 L O2 Saturation 97 96 95 12/30/18 12/30/18 12/30/18 09:24 09:32 09:40 Temperature 35.2 C L 35.2 C L Heart Rate 64 58 L 61 Respiratory 20 20 Rate Blood Pressure 102/52 L 109/56 L O2 Saturation 96 96 12/30/18 12/30/18 12/30/18 09:46 10:03 10:11 Temperature 35.2 C L 35.2 C L 35.3 C L Heart Rate 56 L 50 L 56 L Respiratory 20 17 50 H Rate Blood Pressure 105/63 112/70 125/64 O2 Saturation 96 96 95 12/30/18 12/30/18 12/30/18 10:18 10:55 10:56 Temperature 35.3 C L 35.7 C L Heart Rate 57 L 63 77 Respiratory 20 20 Rate Blood Pressure 113/67 136/66 H O2 Saturation 92 97 12/30/18 12/30/18 12/30/18 11:02 11:17 11:31 Temperature 35.8 C L 35.9 C L 36 C L Heart Rate 67 70 64 Respiratory 18 20 16 Rate Blood Pressure 118/79 98/65 101/69 O2 Saturation 100 100 99 Oxygen O2 Source Mechanical ventilator - Labs Labs: Laboratory Tests 12/30/18 12/30/18 12/30/18 06:40 06:40 06:40 WBC 15.9 H RBC 5.05 Hgb 13.7 L Hct 41.2 L MCV 81.5 MCH 27.0 MCHC 33.2 RDW 14.8 Plt Count 448 MPV 8.2 Neut # (Auto) 12.9 H Lymph # (Auto) 2.0 [place] # (Auto) 0.9 Eos # (Auto) 0.0 Baso # (Auto) 0.1 Absolute Nucleated RBC 0.01 Nucleated RBC % 0.1 PT 13.3 H INR 1.2 APTT 35.4 H Bld Gas Analysis Time Sample Site ABG pH ABG pCO2 ABG pO2 ABG HCO3 ABG Total CO2 ABG O2 Saturation ABG Base Excess Kieran Test Respiration Rate O2 Delivery Device Vent Mode FiO2 Tidal Volume PEEP Pressure Support Vent Sodium 136 Potassium 4.3 Chloride 88 L Carbon Dioxide 40 H* Anion Gap 8.0 BUN 24 H Creatinine 0.6 Estimated GFR (MDRD) 131 Glucose 77 Lactic Acid Calcium 9.2 Total Bilirubin 0.6 AST 28 ALT 22 Alkaline Phosphatase 89 Troponin I B-Natriuretic Peptide Total Protein 7.9 Albumin 3.4 Globulin 4.5 H Albumin/Globulin Ratio 0.8 L Lipase 26 Urine Color Urine Clarity Urine pH Ur Specific [place] Urine Protein Urine Glucose (UA) Urine Ketones Urine Occult Blood Urine Nitrite Urine Bilirubin Urine Urobilinogen Ur Leukocyte Esterase Urine RBC Urine WBC Ur Squamous Epith Cells Urine Crystals Urine Bacteria Urine Casts Ur Microscopic Review Urine Culture Comments 12/30/18 12/30/18 12/30/18 06:40 06:40 06:59 WBC RBC Hgb Hct MCV MCH MCHC RDW Plt Count MPV Neut # (Auto) Lymph # (Auto) [place] # (Auto) Eos # (Auto) Baso # (Auto) Absolute Nucleated RBC Nucleated RBC % PT INR APTT Bld Gas Analysis Time Sample Site ABG pH ABG pCO2 ABG pO2 ABG HCO3 ABG Total CO2 ABG O2 Saturation ABG Base Excess Kieran Test Respiration Rate O2 Delivery Device Vent Mode FiO2 Tidal Volume PEEP Pressure Support Vent Sodium Potassium Chloride Carbon Dioxide Anion Gap BUN Creatinine Estimated GFR (MDRD) Glucose Lactic Acid Calcium Total Bilirubin AST ALT Alkaline Phosphatase Troponin I < 0.04 B-Natriuretic Peptide 34 Total Protein Albumin Globulin Albumin/Globulin Ratio Lipase Urine Color YELLOW Urine Clarity CLEAR Urine pH 6.0 Ur Specific [place] >=1.030 H Urine Protein >=300 Urine Glucose (UA) NEGATIVE Urine Ketones NEGATIVE Urine Occult Blood SMALL H Urine Nitrite NEGATIVE Urine Bilirubin NEGATIVE Urine Urobilinogen 0.2 (NORMAL) Ur Leukocyte Esterase NEGATIVE Urine RBC 0-5 Urine WBC 0-3 Ur Squamous Epith Cells RARE Squamous Urine Crystals 11-25 Ca Oxalate Urine Bacteria Rare Urine Casts 11-25 Granular Casts Ur Microscopic Review INDICATED Urine Culture Comments NOT INDICATED 12/30/18 12/30/18 12/30/18 06:59 07:32 09:12 WBC RBC Hgb Hct MCV MCH MCHC RDW Plt Count MPV Neut # (Auto) Lymph # (Auto) [place] # (Auto) Eos # (Auto) Baso # (Auto) Absolute Nucleated RBC Nucleated RBC % PT INR APTT Bld Gas Analysis Time 0742 0953 Sample Site RIGHT RADIAL RIGHT RADIAL ABG pH 7.31 L 7.47 H ABG pCO2 74 H* 42 ABG pO2 63 L 52 L* ABG HCO3 37.0 H 30.3 H ABG Total CO2 39.0 H 31.6 H ABG O2 Saturation 88 L 92 L ABG Base Excess 11.0 H 6.1 H Kieran Test POSITIVE POSITIVE Respiration Rate 16 22 O2 Delivery Device VENTILATOR VENTILATOR Vent Mode SIMV SIMV FiO2 100.00 100.00 Tidal Volume 500 450 PEEP 5 7 Pressure Support Vent 12 12 Sodium Potassium Chloride Carbon Dioxide Anion Gap BUN Creatinine Estimated GFR (MDRD) Glucose Lactic Acid 1.0 Calcium Total Bilirubin AST ALT Alkaline Phosphatase Troponin I B-Natriuretic Peptide Total Protein Albumin Globulin Albumin/Globulin Ratio Lipase Urine Color Urine Clarity Urine pH Ur Specific [place] Urine Protein Urine Glucose (UA) Urine Ketones Urine Occult Blood Urine Nitrite Urine Bilirubin Urine Urobilinogen Ur Leukocyte Esterase Urine RBC Urine WBC Ur Squamous Epith Cells Urine Crystals Urine Bacteria Urine Casts Ur Microscopic Review Urine Culture Comments - Rads (name of study) head CT Radiology: Prelim report reviewed, EMP read contemporaneously, See rad report (No intracranial hemorrhage, mass-effect, CT evidence of acute infarct, or other acute intracranial abnormality. 2. Right posterior enlarged cervical lymph node partially visualized at the inferior margin of the images, corresponding to the mass seen on prior brain MRI. ) cxr Radiology: Prelim report reviewed, EMP read contemporaneously, See rad report (Endotracheal tube 5 cm above the fanny. 2. Orogastric tube coursing into the stomach. 3. New moderate right and unchanged small left pleural effusions. 4. Increased mild wispy bibasilar airspace opacities suggesting atelectasis. 5. Innumerable tiny bilateral lung nodules as before suggesting metastases. ) post line cxr Radiology: Prelim report reviewed, EMP read contemporaneously, See rad report (Appropriate right IJ central venous catheter positioning. ) CT chest angio Radiology: Prelim report reviewed, EMP read contemporaneously, See rad report (No PE. Innumerable randomly distributed tiny bilateral lung nodules. Pleural effusions with posterior basilar consolidation and lymphadenopathy as described. ) Procedures - Central Line Central Line Preparation: Consent Obtained (), Time out completed, Ultrasound used, Sterile prep and drape Central line location: Right IJ Central line type: Triple lumen Central line aftercare: Chlorhexidine disc placed, Secured, Placement confirmed, No pneumothorax, No complications, Bundle checklist complete, Pt tolerated well PD MEDICAL DECISION MAKING - ED course Complexity details: reviewed results, re-evaluated patient, considered differential, d/w family, d/w sql server consultant ED course: 78-year-old male presents to the emergency department with acute altered mental status today. GCS of 3 upon arrival[address] Intub[address] by Dr. Hdz. Signed out to me. I then placed a central line in the patient. He is maintained on IV fluids, propofol. He did have an episode of hypotension, propofol was stopped and blood pressure improved. The ICU was full here. Will attempt to transfer. Patient sees Dr. Antunez, oncology at [facility] for his metastatic lung cancer. Does have a moderate right-sided pleural effusion. Unclear etiology of today's episode, possible secondary to prolonged hypoxia? Possible TIA in e reticular activating system? Other etiology? Will transfer for further evaluation and care. Discussed the case with Dr. Denise Schulz at approximately 1030. She graciously accepts in transfer to [place] in [place] at the ICU. At this time the patient is able to open his eyes, follow commands, squeezes hands, etc. Patient will be maintained on the propofol and fentanyl drip. This document was made in part using voice recognition software. While efforts are made to proofread this document, sound alike and grammatical errors may occur. - Critical Care Time(min): 60 Time Includes: Direct patient care Data interpretation: See progress note Procedures included in critical care time: See progress note Procedures excluded from critical care time: Central IV, See progress note Departure - Departure Disposition: 02 Transfer Acute Care Hosp Clinical Impression: Hypoxia Respiratory failure Qualifiers: Chronicity: acute Respiratory failure complication: hypoxia and hypercapnia Qualified Code(s): J96.01 - Acute respiratory failure with hypoxia Altered mental status Qualifiers: Altered mental status type: coma Coma depth: [place] coma 3-8 Coma timing: unspecified coma timing Qualified Code(s): R40.2430 - [place] coma scale score 3-8, unspecified time Metastatic primary lung cancer Qualifiers: Laterality: unspecified laterality Qualified Code(s): C34.90 - Malignant neoplasm of unspecified part of unspecified bronchus or lung Condition: Serious
[2018-12-30] MEDS ORDERED: fentaNYL 2,500 MCG in SODIUM CHLORIDE 0.9% 200 ML IV STA (08:52)
--- NOTE | 2018-12-30 09:18 | XRAY Report ---
Reason: CENTRAL LINE PLACEMENT Procedure Date: 12/30/2018 Accession Number: [id number] / [id number] Procedure: XR - Chest for Line Placement CPT Code: FULL RESULT: EXAM: CHEST RADIOGRAPHY EXAM DATE: 12/30/2018 08:52 AM. CLINICAL HISTORY: Central line placement. COMPARISON: CHEST 1 VIEW 12/30/2018 6:44 AM. TECHNIQUE: 1 view. FINDINGS: Lungs/Pleura: Large layering pleural effusion on the right, smaller appearing compared to 6:44 AM which is possibly positional given apparent interval increase in the now moderate appearing left pleural effusion, suspect free shifting of fluid. Pulmonary edema is noted. Airspace consolidation would be difficult to evaluate. No pneumothorax is identified. Mediastinum: Within exam limitations, the cardiomediastinal contour is unchanged accounting for differences in technique. Other: Right IJ central venous line terminates in the region of the superior cavoatrial junction. Endotracheal tube terminates 2.8 cm above the fanny and below the thoracic inlet, appropriate position. Enteric tube terminates with tip and sidehole below the visualized diaphragm and partially outside the inferior confine of the radiograph, appropriate position. IMPRESSION: Appropriate right IJ central venous catheter positioning. RADIA
[2018-12-30 09:22] LABS: ABG BASE EXCESS 6.1 mmol/L (-2.0-3.0); ABG HCO3 30.3 mmol/L (22.0-26.0); ABG OXYGEN SATURATION 92 % (94-98); ABG PCO2 42 mmHg (34-45); ABG PH 7.47 (7.35-7.45); ABG TCO2 31.6 MMOL/L (21.0-29.0)
[2018-12-30 09:23] LABS: ALLEN TEST POSITIVE
[2018-12-30 09:25] LABS: ABG PO2 52 mmHg (80-100)
[2018-12-30] MEDS ORDERED: IOVERSOL 320 100 ML VIAL IVP ONE ×2 (09:54→10:56)
--- NOTE | 2018-12-30 11:32 | CT Report ---
Reason: hypoxia, poss PE? Procedure Date: 12/30/2018 Accession Number: [id number] / [id number] Procedure: CT - ANGIO CHEST W/WO CPT Code: FULL RESULT: EXAM: CT ANGIOGRAM CHEST EXAM DATE: 12/30/2018 12:00 AM. CLINICAL HISTORY: Hypoxia. Question possible PE. COMPARISON: CHEST FOR LINE PLACEMENT 12/30/2018 8:38 AM. TECHNIQUE: Routine helical imaging was performed through the chest in the pulmonary arterial phase. IV Contrast: 80 mL Optiray 320. Reconstructions: Coronal 3-D MIP reconstructions.Sagittal and coronal. In accordance with CT protocol optimization, one or more of the following dose reduction techniques were utilized for this exam: automated exposure control, adjustment of mA and/or KV based on patient size, or use of iterative reconstructive technique. FINDINGS: Pulmonary Arteries: Diagnostic quality: Adequate through the segmental arteries. No evidence for acute or chronic pulmonary emboli. RV/LV is within normal limits. There is no interventricular septal bowing. There is no reflux of contrast material in the IVC. Lungs/Pleura: There are innumerable tiny pulmonary nodules, bilateral and random distribution. Large right and small left pleural effusions. Consolidation is seen in both lungs, predominantly posteriorly, mostly with impression of volume loss. Mediastinum: There is supraclavicular lymphadenopathy, image 68 series 11 similarly, superior mediastinal lymphadenopathy is seen on image 36 series 4, up to 1.2 cm in short axis. Prominent lymph nodes are seen in the middle mediastinum in and around the AP window which do not individually meet size criteria. Similarly, prominent lymph nodes are seen at the right hilum, aggregate measures up to 2.2 x 1.8 cm. Right hilar ralph aggregate measures 1.9 x 1.3 cm. Thoracic Aorta: Unremarkable. Upper Abdomen: Unremarkable. Other: Endotracheal tube terminates above the fanny, enteric tube terminates in the stomach and the right IJ central line terminates in the inferior SVC. IMPRESSION: No PE. Innumerable randomly distributed tiny bilateral lung nodules. Pleural effusions with posterior basilar consolidation and lymphadenopathy as described. RADIA
[2018-12-30 12:05] VITALS: BP 108/65
[2018-12-30 12:12] LABS: ABG PCO2 36 mmHg (34-45); ABG PH 7.53 (7.35-7.45)
[2018-12-30 12:13] LABS: ABG BASE EXCESS 6.7 mmol/L (-2.0-3.0); ABG HCO3 29.7 mmol/L (22.0-26.0); ABG OXYGEN SATURATION 97 % (94-98); ABG PO2 80 mmHg (80-100); ABG TCO2 30.8 MMOL/L (21.0-29.0); ALLEN TEST POSITIVE
== END 2018-12-30 12:37 | disposition short-term general hospital (02) ==
LOC: ED 06:23
DX: J96.01 Acute respiratory failure with hypoxia (principal); J96.02 Acute respiratory failure with hypercapnia; C34.90 Malignant neoplasm of unspecified part of unspecified bronchus or lung; I10 Essential (primary) hypertension; E11.9 Type 2 diabetes mellitus without complications; Z79.4 Long term (current) use of insulin; Z79.899 Other long term (current) drug therapy
CPT/HCPCS: 31500; 36415; 36556; 36600; 70450; 71045; 71275; 80053; 81001; 82803; 83605; 83690; 83880; 84484; 85025; 85610; 85730; 93005; 94770; 96361; 96365; 96375; 99284; 99291; J0330; J3010; Q9967; 81003; 87086; 99285

== ENCOUNTER 2019-01-12 13:00 | Outpatient (CLI) | payer OTHER ==
--- NOTE | 2019-01-12 21:01 | CONSULTATION NOTE ---
Palliative Care Consultation - Referral Referring Provider: Dr. Lashay Berry Time of Visit: [id number] Referral setting: Home Referral Reason: Metastatic Lung Cancer - Information Sources Records reviewed: Previous records reviewed History/Review of Systems obtained from: Patient, Family (daughter Susan and Patricia at visit) Exam limitations: No limitations - History of Present Illness Brief History of Present Illness: This is a ying 78-year-old gentleman who presented in July 2018, to urgent care with increased cough, shortness of breath, and was treated with a course of antibiotics for assumed URI. He did not improve, 2 weeks later he presented to the ED with a large left-sided pleural effusion, and had 2 sequential thoracentesis done with removal of 1.8 L and 2 L. Prior to this he had been having some shortness of breath, but no acute symptoms, and mild weight loss of 6 to 7 pounds. Unfortunately he was area in [place] at this time, as he and his are snowbirds, and his insurance would not pay for treatment down there, he came back to his home town of [place]. Given the need then to establish care, and transition there was somewhat of a delay, he was seen by Dr. Antunez in [place]. He did have a CT scan on 08/24, That showed right supraclavicular enlarged lymph nodes and residual large left pleural effusion with multiple nodules throughout the pleura. He was told at that time he had stage IV lung cancer, but did need to complete staging, and needed further molecular testing. He then underwent a diagnostic thoracentesis on 11/10/2018, with a staging brain MRI that was negative, and a CT of the abdomen and pelvis showed no mets below the diaphragm but multiple bilateral p ulmonary nodules. His pleural effusion pathology molecular studies did show BRAF V6 100 mutation, EGFR F-. and was prescribed immunotherapy of dabrafenib and trametinib. Unfortunately again, and getting medications approved through his insurance, there is a delay until he was able to start this and early December. Patient in the meantime did start developing increased shortness of breath, and some lower extremity edema. He was seen at [facility], and given some furosemide, but experienced progressive shortness of breath. Until he presented on 12/30 and responsive, they did call 911, patient unfortunately needed to be intubated, and transition to [facility]. He did present at that point in time with acute respiratory failure, acute encephalopathy, and a severe right pleural effusion. He was discharged on 01/04/2019. He did receive a right thoracentesis at that time of 3 L of fluid. Patient currently receiving his immunotherapy, at this point does appear to be tolerating without any acute side effects. He does have moderate symptom burden, dyspnea, fatigue, and mild left-sided thoracic pain. He did have a chest x-ray yesterday, that does show some mild to moderate amount. The left pleural effusion is loculated with a small to moderate amount, and continues to have multiple bilateral pulmonary nodules. He is currently on oxygen, does have fluctuating saturations, he tends to be a mouth breather. He denies acute shortness of breath, does feel at this point he would be able to identify if he were getting in trouble again. The plan is to follow him fairly closely, and tap therapeutically. The hope is if he receives a good response to his treatment, the pleural effusions will improve. But there has been conversation regarding Pleurx catheter in the future if needed. Patient does have a history of hypertension, has been off some of his medications, he does present with 140/68 today. Has been instructed to monitor. Also has diabetes type 2, currently off his Lantus and managed with his metformin. Palliative care meeting with them today to establish rapport, symptom management, and continue advanced care planning conversations. Medical/Surgical History - Past Medical History Cardiovascular: reports: Hypertension, High cholesterol Respiratory: reports: COPD, Shortness of breath, Other (recurrent pleural effusions: lung cancer 08/2018) Endocrine/Autoimmune: reports: Type 2 diabetes, HyPOthyroidism, Other (hx of Grave's Dx) GI: reports: GERD : reports: None HEENT: reports: None Psych: reports: None Musculoskeletal: reports: Osteoarthritis, Fatigue, Other (hx of compartment syndrome RLL) Derm: reports: Other (actinic keratosis) MRSA Hx?: No - Past Surgical History General: reports: Colonoscopy, EGD - Substance History Use: Uses substance without health or social issues: Tobacco (min. tobacoo 6-7 years quit 1967;), Alcohol (occasional) Social History - Living Situation Living arrangement: At home Living Situation: With spouse/s.o. Support System: Patient has worked on the [employer] for 48 years, 4 years in the [employer]. 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 He has been long-term stable in the community. He and his have been snowbirds for the last 5 to 6 years, often go down to [place] in July and come back in December. They have 2 daughters and his son, all who live here on the [place] and [place]. Susan has been providing support around medical appointments, and assisting parents. Patricia his , and patient have been for 55 years. This is been somewhat overwhelming, as this is only been the last few months, and full many frustrations around insurance. Family History - Family History Family History: Mother: ( in their old age; no cancer), Father: Medications/Allergies - Medications Home Medications: Ambulatory Orders Medication Instructions Recorded Confirmed Aspirin [Aspir 81] 81 mg PO DAILY 02/16/15 01/14/19 Felodipine [Felodipine ER] 10 mg PO DAILY 02/16/15 01/14/19 Metformin HCl [Glucophage] 1,000 mg PO BID 02/16/15 01/14/19 raNITIdine [Zantac] 150 mg ORAL BID 02/16/15 01/14/19 Atorvastatin [Lipitor] 10 mg PO DAILY 12/30/18 01/14/19 Dabrafenib Mesylate [Tafinlar] 150 mg PO BID 12/30/18 01/14/19 Metoprolol Tartrate 100 mg PO BID 12/30/18 01/14/19 Trametinib Dimethyl Sulfoxide 2 mg PO DAILY 12/30/18 01/14/19 [Mekinist] Furosemide 20 mg PO PRN PRN 01/14/19 01/14/19 Levothyroxine Sodium 200 mcg PO DAILY 01/14/19 01/14/19 Nystatin 5 ml PO QID 01/14/19 01/14/19 - Allergies Allergies/Adverse Reactions: Allergies Allergy/AdvReac Type Severity Reaction Status Date / Time No Known Drug Allergies Allergy Verified 01/11/19 09:39 Review of Systems - Constitutional Constitutional: reports: Fatigue, Weight loss (minimal about 7-8 pounds). denies: Fever, Chills - Ears, Nose & Throat Ears, Nose & Throat: reports: Dry mouth - Cardiovascular Cardiovascular: reports: Edema (mild bilateral right greater than left), Exer tional dyspnea, Decr. exercise tolerance - Respiratory Respiratory: reports: Cough, Sputum production (clear sputum; min amount), Orthopnea, SOB with exertion. denies: SOB at rest - Gastrointestinal Gastrointestinal: reports: Good appetite. denies: Constipation, Diarrhea, Nausea, Reflux/heartburn - Integumentary Integumentary: reports: Dryness - Psychiatric Psychiatric: denies: Depression, Anxiety - Endocrine Endocrine: reports: Diabetes type 2 (BS currently off Lantus; is doing BID checks FBS this am 118; pre dinner last night 168; a little higher than used to) - All Other Systems All Other Systems: reports: Reviewed and negative Physical Exam - Vital Signs Temperature: 97.2 C Pulse Rate: 72 Respiratory Rate: 20 O2 Saturation: 93 (on 2 liters) Blood Pressure: 140/68 - Physical Exam General Appearance: positive: No acute distress, Alert Eyes Bilateral: positive: Normal inspection ENT: positive: Other (thickened white/yellow plaque on tongue; c/o dryness and irritation; some throat discomfort) Neck: positive: No JVD, Trachea midline Cardiovascular: positive: Regular rate & rhythm Respiratory: positive: Other (No breath sounds on right up to about 50%p left with 20-25%; known pleural effusions). negative: No respiratory distress (does present with respiratory effort with activity; RR with ambulation; o2 sats 93 on 2 liters at rest;), Wheezes, Rales, Rhonchi Abdomen: positive: Non-tender, Soft, Nml bowel sounds, Distended (mild) Skin: positive: Pallor, Dryness, Other (multiple actinic kerotosis;) Extremities: positive: Pedal edema (Trace in left ankle up to mid calf; right hx of compartment syndrome; 1-2+ up to mid calf; sits with legs dependent. short tight socks on with ridging on edema/skin) Neurologic/Psychiatric: positive: Oriented x3, Mood/affect nml Palliative Care - POLST Patient has POLST: Yes POLST Status: DNR, Selective Treatment (completed and explore with DNAR/Selected Treatments; antibiotics if life can be prolonged; no medically assisted nutrition) Pain: Location (left mid thoracic back area; intermittent not exacerbating factors; occasionally sharp shooting through mid back; not enough to take medication) Tiredness/Fatigue: Moderate (4-6) Drowsiness/Sedation: None Nausea: None Depression: None Anxiety: Mild (1-3) Dyspnea: Moderate (4-6) Anorexia: Mild (1-3) Sleep: Sleeps well Constipation: No Feelings of wellbeing/Perceived Quality of Life: Fair, Acceptable, Improved Performance Status: Patient previous to dx in 07/2018 was golfing three times a week; very active in home/gardening. Travels to [place] jul-December. Has been very limited with dyspnea since dx; able to manage own ADLs; had decrease in functional status after acute hospitalization; improving but still with activity intolerance. - Palliative Care Discussion: Met with patient, Patricia, and daughter Susan. Had met with Palliative Care during acute hospitalization for resp. failure, had started advanced care planning, and designated DNAR/Selected Treatments. Patient had been intubated during that stay. Patient does have understanding his treatment is palliative, but quite hopeful given the new paradigm of immunotherapy, and hoping for a good response. Had thought he was imminently dying during his [facility]ization, understands this was looked at through the lens of his acute issues. Discussed quality of life, patient does not want suffering prolonged, if he were to not be cognizant or with it that would not be quality of life, nor if he were a burden on his family or needing care at a level of care home. Addressed questions with patient's permission of family, about resources for EOL care, reviewed/counseled on the hospice benefit, he knows the medical unit secretary ; talked about support and limitations, as well as lack of placement options. Counseling provided regarding the role of outpatient Palliative Care in partnering with PCP and oncologist. Patient with moderate symptom burden. Results - Lab Results Lab results reviewed: Yes Impression and Recommendations - Palliative Care Impression: This is a 78-year-old gentleman with metastatic lung cancer, with recurrent pleural effusions. Recently hospitalized acutely with respiratory failure requiring intubation, at [facility] from 12/30 to 01/04. Patient currently receiving immunotherapy, presents with mild to moderate symptom burden, oxygen dependent, and with functional decline. Palliative care to provide support for pain and symptom management and anticipatory guidance. Recommendations/Counseling Done: 1. Oral candidiasis. Patient high risk with DM, recent hospitalization, and immunocompromise. Ordered Nystatin with instructions given to use at least 7-10 days, and how to use properly. Verbalized understanding. 2. Hypertension. Patient's b/p HCTZ and lisinopril have been discontinued in the last month. Patient has been instructed to take blood pressure at least 3 times a week, and record. Instructed to follow-up with PCP or notify myself, if trending upward. 3. Lower extremity edema. Patient presents with actually only mild symptoms, instructed on mild compression, and elevation of feet. Patient has finally received his furosemide 20 mg, patient with only trace to 1+ edema today, instructed to take if worsening and reviewed parameters. 4. Back pain. Patient presents with intermittent and fluctuating thoracic back pain mostly localized to the left. Instructed patient to try acetaminophen 650 mg for discomfort, and to notify if pain worsening or acetaminophen not effective. 5. Metastatic lung cancer. Patient receiving immunotherapy, patient is only been on since 5 with no acute side effects at this point in time. Will have follow-up with oncologist in 2 weeks, including repeat chest x-ray. Patient does present with moderate right pleural effusion, on right. At this point time is not causing any acute or respiratory compromise. Patient has been instructed to follow-up if increasing shortness of breath, decreasing saturations, or increased activity intolerance. Counseling provided regarding the role of a Pleurx catheter, as a tool. Can have intermittent thoracentesis at this point hope is treatment will improved effusions, but would be in option if overall is needing frequently. Questions addressed. 6. Advanced care planning. Counseling provided regarding the continuum of care, patient has been recently hospitalized acutely. POLST has been initiated with DNA R/selective treatment. Patient reports he does have DPO a with is decision-maker, and follow-up with children. Requested they locate, so can get on record. Completed [facility] POLST per request, discussed most important conversations are to have with family regarding what is and what is not acc eptable quality of life. Provided support with answer of their questions regarding hospice, end-of-life, resources, and role of palliative care. Time Spent: 90 minutes with greater than 50% of this done in counseling regarding goals of care, continuum of care, advanced care planning, and symptom management as well as anticipatory guidance
== END 2019-01-12 13:01 | disposition home or self-care (01) ==
LOC: PC 13:00
PROVIDERS: ATTEND Nurse Practitioner Adult Health
DX: Z51.5 Encounter for palliative care (principal); B37.0 Candidal stomatitis; I10 Essential (primary) hypertension; R60.0 Localized edema; M54.6 Pain in thoracic spine; C34.90 Malignant neoplasm of unspecified part of unspecified bronchus or lung; J91.0 Malignant pleural effusion; C78.00 Secondary malignant neoplasm of unspecified lung; E11.9 Type 2 diabetes mellitus without complications; J44.9 Chronic obstructive pulmonary disease, unspecified; Z87.891 Personal history of nicotine dependence; Z79.84 Long term (current) use of oral hypoglycemic drugs; Z79.899 Other long term (current) drug therapy; Z66 Do not resuscitate
CPT/HCPCS: 99345

== ENCOUNTER 2019-01-24 15:23 | Outpatient (CLI) | payer OTHER ==
--- NOTE | 2019-01-24 16:06 | XRAY Report ---
Reason: LUNG CA Procedure Date: 01/24/2019 Accession Number: [id number] / [id number] Procedure: WCP - Chest 2 View X-Ray CPT Code: 78585 FULL RESULT: EXAM: CHEST RADIOGRAPHY EXAM DATE: 01/24/2019 03:19 PM. CLINICAL HISTORY: Lung cancer follow-up. COMPARISON: CHEST 2 VIEW 01/11/2019 10:41 AM CHEST ANGIO 12/30/2018 10:41 AM. TECHNIQUE: 2 views. FINDINGS: Lungs/Pleura: Interval increase in size of the right pleural effusion, now moderate. Redemonstration of similar-sized loculated small left pleural effusion. Aerated portions of lung uribe essentially unchanged with suggestion of innumerable tiny nodules. Mediastinum: The visualized portion of the cardiomediastinal silhouette is stable. Other: None. IMPRESSION: Enlarging right pleural effusion. RADIA
--- NOTE | 2019-01-26 06:50 | ONCOLOGY / HEMATOLOGY ---
DATE OF SERVICE: 01/24/2019 Physician: Rufino Antunez MD DIAGNOSES 1. Metastatic lung adenocarcinoma, BRAF positive. a. Malignant pleural effusion requiring therapeutic thoracentesis. 2. Started trametinib and dabrafenib on 12/24/2018. INTERVAL HISTORY: Patient is here today for followup. He has been feeling about the same. He denie s any increased shortness of breath. He actually is able to do more with his activities. He had a c hest x-ray 2-view weeks ago and it showed a very minimal right pleural effusion. He had another ches t x-ray yesterday and it showed interval increase in the size of right pleural effusion, but of moder ate degree. Bilateral pulmonary nodules appear stable on the chest x-ray done yesterday. REVIEW OF SYSTEMS: For complete review of systems, see today's assessment form. PAST, FAMILY AND SOCIAL HISTORY: As above. He never smoked. He is here today with his family. He lives in [place]. MEDICATIONS: He takes: 1. Aspirin 81 mg. 2. Felodipine. 3. Metformin. 4. Ranitidine. 5. Lipitor. 6. Metoprolol. 7. Furosemide. 8. Levothyroxine. 9. Nystatin. PHYSICAL EXAMINATION VITAL SIGNS: Per chart, stable. GENERAL: Pleasant, in no acute distress. HEENT: Sclerae anicteric. LUNGS: Bilateral chest exam revealed normal breath sounds, slightly decreased at the right base. ABDOMEN: Soft. No tenderness. EXTREMITIES: No edema. SKIN: No rash, no jaundice. NEUROLOGIC: He is alert and oriented. LABORATORY DATA: His CBC, chemistry panel were reviewed and they were unremarkable. Chest x-ray is as above. ASSESSMENT AND PLAN: Metastatic lung adenocarcinoma with malignant pleural effusion, worse on the ri ght side. Clinically, he is stable. I do not think he needs thoracentesis for the right pleural eff usion for now. I will see him in 2 weeks for followup with a repeat chest x-ray to watch for the inv olvement of the right pleural effusion. He has been tolerating both trametinib and dabrafenib very w ell without any noticeable side effects. We will continue both treatments for now and plan for a res taging CT scan of the chest in 2 months to assess his response. cc: Chen Gould DO TD: 01/25/2019 21:36
== END 2019-01-24 15:24 | disposition home or self-care (01) ==
LOC: DI.WCP 15:23
PROVIDERS: ATTEND Internal Medicine Hematology & Oncology
DX: C34.90 Malignant neoplasm of unspecified part of unspecified bronchus or lung (principal); J90 Pleural effusion, not elsewhere classified
CPT/HCPCS: 71046

== ENCOUNTER 2019-02-04 09:09 | Outpatient (CLI) | payer OTHER ==
--- NOTE | 2019-02-04 11:10 | XRAY Report ---
Reason: LUNG CA Procedure Date: 02/04/2019 Accession Number: [id number] / [id number] Procedure: WCP - Chest 2 View X-Ray CPT Code: 30627 FULL RESULT: EXAM: CHEST RADIOGRAPHY EXAM DATE: 02/04/2019 09:17 AM. CLINICAL HISTORY: Shortness of breath; lung cancer. COMPARISON: CHEST 2 VIEW 01/24/2019 3:19 PM. TECHNIQUE: 2 views. FINDINGS: Lungs/Pleura: Stable linear parenchymal opacity in the left mid lung. New linear parenchymal opacity in the right midlung, most consistent with atelectasis. Nodular left basilar pleural thickening, essentially unchanged. Continued small to moderate right pleural effusion. No pneumothorax bilaterally. The right lung base is obscured. Mediastinum: The cardiac contour is obscured secondary to the right pleural effusion. Mediastinal and hilar contours are unremarkable. Tortuous thoracic aorta. Other: Decreased mineralization of the bones with degenerative changes in the lumbar spine and shoulders. IMPRESSION: 1. New linear parenchymal opacity in the right mid lung, likely atelectasis. 2. The remainder is stable, detailed above. RADIA
== END 2019-02-04 09:10 | disposition home or self-care (01) ==
LOC: DI.WCP 09:09
PROVIDERS: ATTEND Internal Medicine Hematology & Oncology
DX: C34.90 Malignant neoplasm of unspecified part of unspecified bronchus or lung (principal)
CPT/HCPCS: 71046

== ENCOUNTER 2019-02-15 17:18 | Outpatient (CLI) | payer OTHER ==
--- NOTE | 2019-02-15 21:31 | CONSULTATION NOTE ---
Palliative Care Follow Up - Referral Referring Provider: Dr. Lashay Gould Time of Visit: 11:45-12:30 Referral setting: Home Referral Reason: Stage IV Lung Cancer/Insominia - Information Sources Records reviewed: Previous records reviewed History/Review of Systems obtained from: Patient, Family (Daughter Susan present; Patricia) Exam limitations: No limitations - History of Present Illness Update Brief HPI Update: This is .a ying 78-year-old gentleman who presented in July 2018 with increased cough shortness of breath, and presented with a left sided large pleural effusion and was found to have stage IV lung cancer. He was initiated on immunotherapy of tametinib and dabrfenib on 12/24/2018. Patient has had a complication of respiratory failure, recurrent severe right pleural effusion, and acute encephalopathy for which he was hospitalized at [place]. Unfortunately at that time he was intubated, and he did receive right thoracentesis of 3 L of fluid. Patient is currently tolerating his immunotherapy, without any acute side effects. He has been having serial chest x-rays done to monitor his recurrent pleural effusions. At this point in time he remains stable, he does have a small to moderate one on the right. He does have oxygen, with fluctuating saturations. His breathlessness is improving, continues with fatigue but improved activity tolerance, he has had a few pounds of weight loss but no significant anorexia. His cough has improved somewhat, he does have an exacerbation of his back pain but this is due to moving furniture and acute trauma. Patient's main complaint as far as symptom burden, is insomnia. He does find himself drifting off and sleeping through the day, difficulty sleeping at night. Denies pain or breathlessness waking him up. Would like to try medication. Patient does have hypertension, had been titrated off of some of his medications, he does present with it currently controlled. He has diabetes type 2 currently off his Lantus and is being managed without problems with his metformin. He is monitoring this twice daily. Palliative care continues to provide support to establish rapport, support for symptom management and adjustment illness as well as continue to advance care planning conversations Social History - Living Situation Living arrangement: At home Living Situation: With spouse/s.o. Support System: Patient is retired and lives at home, is missing not being in [place]. He does have a supportive community, his daughter Susan [place] and helps advocate for his care. His Patricia is quite attentive. Patient is feeling better is back to going out to coffee with his friends Medications/Allergies - Medications Home Medications: Ambulatory Orders Medication Instructions Recorded Confirmed Aspirin [Aspir 81] 81 mg PO DAILY 02/16/15 02/15/19 Felodipine [Felodipine ER] 10 mg PO DAILY 02/16/15 02/15/19 Metformin HCl [Glucophage] 1,000 mg PO BID 02/16/15 02/15/19 raNITIdine [Zantac] 150 mg ORAL BID 02/16/15 02/15/19 Atorvastatin [Lipitor] 10 mg PO DAILY 12/30/18 02/15/19 Dabrafenib Mesylate [Tafinlar] 150 mg PO BID 12/30/18 02/15/19 Metoprolol Tartrate 100 mg PO BID 12/30/18 02/15/19 Trametinib Dimethyl Sulfoxide 2 mg PO DAILY 12/30/18 02/15/19 [Mekinist] Furosemide 20 mg PO PRN PRN 01/14/19 02/15/19 Levothyroxine Sodium 200 mcg PO DAILY 01/14/19 02/15/19 Nystatin 5 ml PO QID PRN 01/14/19 02/15/19 traZODone [Desyrel] 50 mg PO ACHS PRN 02/15/19 02/15/19 - Allergies Allergies/Adverse Reactions: Allergies Allergy/AdvReac Type Severity Reaction Status Date / Time No Known Drug Allergies Allergy Verified 02/08/19 09:01 Review of Systems - Constitutional Constitutional: reports: Fatigue, Weight loss (193). denies: Fever - Ears, Nose & Throat Ears, Nose & Throat: reports: Dry mouth (improved with tx;) - Cardiovascular Cardiovascular: reports: Exertional dyspnea, Decr. exercise tolerance - Respiratory Respiratory: reports: Orthopnea, SOB with exertion (improved) - Gastrointestinal Gastrointestinal: reports: Good appetite. denies: Constipation, Nausea - Musculoskeletal Musculoskeletal: reports: Back pain (exacerbated back pain with lifting furniture), Stiffness, Muscle weakness - Integumentary Integumentary: reports: Dryness, Other (lesions on right islam recurred; had been getting taken off at [employer]; was told to put on "hold" for now with treatment) - Neurological Neurological: reports: General weakness, Memory problems (mild) - Psychiatric Psychiatric: denies: Depression, Anxiety - Endocrine Endocrine: reports: Diabetes type 2 (pretty good control; numbers am 110-130) - All Other Systems All Other Systems: reports: Reviewed and negative Physical Exam - Vital Signs Temperature: 96.6 C Pulse Rate: 66 Respiratory Rate: 18 O2 Saturation: 95 (2 liters at rest;) Blood Pressure: 132/72 - Physical Exam General Appearance: positive: No acute distress, Alert Eyes Bilateral: positive: Normal inspection ENT: positive: No signs of dehydration, Other (white/yellow coating on tongue; patches of candidiasis resolved; stilll taste changes but mouth without soreness) Neck: positive: No JVD, Trachea midline Cardiovascular: positive: Regular rate & rhythm Respiratory: positive: Diminished in bases (right greater than left), Other (jose alberto athlessness noted with conversation/activity; denies noticing or distress). negative: Wheezes, Rales, Rhonchi Abdomen: positive: Soft, Nml bowel sounds Skin: positive: Pallor Extremities: positive: No pedal edema (is wearing support stockings; no further problems) Neurologic/Psychiatric: positive: Oriented x3, Mood/affect nml Palliative Care - POLST Patient has POLST: Yes POLST Status: DNR, Selective Treatment Pain: Location (Patient long-term has had intermittent back pain. He reports exacerbated this when moving furniture the other day. It does fluctuate in nature. He does use Biofreeze with relief, has not used any medications. Reports is worsening with twisting, or bending. Does feel like it is improving overall.) Tiredness/Fatigue: Moderate (4-6) Drowsiness/Sedation: Moderate (4-6) Nausea: None Depression: Mild (1-3) Anxiety: Mild (1-3) Dyspnea: Moderate (4-6) (Patient's oxygen had been off during a trip to [facility], reports severe breathlessness and felt quite poorly as well as slightly confused. Patient aware still needs to continue with oxygen therapy particularly with activity. He does have sats that are within normal range at rest, but do fluctuate in cycle through the day.) Anorexia: Mild (1-3) Sleep: Sleeps poorly Constipation: No Feelings of wellbeing/Perceived Quality of Life: Good, Acceptable, Improved Performance Status: Patient's activity still limited by his dyspnea and fatigue. He is doing more, is able to take short trips. He is going out with his friends in the morning. He is able to manage his ADLs independently. - Palliative Care Discussion: Patient does feel like he is settling in to his "new normal". Is feeling encouraged that he is feeling better and not worsening. He does recognize the seriousness of his illness, but is trying to stay positive. Patient does not perceive himself as depressed. He does see his life is altered and particularly in the context of his activity tolerance. Discussion today regarding finding things that can replace other pleasurable activities, as he does get bored. He does like to read, is considering fishing. Family is encouraging patient and supportive of his goals. Impression and Recommendations - Palliative Care Impression: This is a 78-year-old gentleman with stage IV lung cancer, with stable pleural effusion right side. Patient currently receiving immunotherapy, is tolerating with minimal side effects. Patient presents with only moderate symptom burden, he is oxygen dependent, and with functional decline but stabilized. Palliative care to provide support for symptom management and anticipatory guidance. Recommendations/Counseling Done: 1. Insomnia. Counseling provided regarding sleep hygiene, problem solving around decreased sleep during the day. Engaging in more activity and social interaction, patient does tend to fall asleep when sitting in chair. Will initiate trazodone 25 mg at bedtime both for pain and sleep, will titrate up to 50 mg in 1 week. Will contact me if not effective. 2. Oral candidiasis. Patient has had good response to nystatin, still has it as as needed. Does have still coating on his tongue. Instructed counseling provided regarding brushing tongue with goal to keep debris down. 3. Hypertension. Patient is taking blood pressure weekly, slightly elevated from baseline, but within acceptable range. Patient without any lower extremity edema. Is elevating and using compression stockings with success. 4. Back pain. This is attributed actually acutely to injury. Counseling provided regarding use of topicals, heat, and cold. 5. Hypoxia. Patient with intermittent fluctuating hypoxia. Did have acute episode when oxygen was off. Patient is hoping to get rid of oxygen, may need to have pleural effusion tapped if does not resolve on its own. Counseling provided regarding breathing techniques secondary to atelectasis. 6. Metastatic lung cancer. Patient receiving oral immunotherapy, is tolerating without any side effects at this point in time. Will receive serial chest x- rays, though no change at this point in time. Does have moderate right pleural effusion. Is using oxygen, monitoring his saturations. 7. Right temporal skin lesion. Patient with known precancerous lesions, has had them removed on a regular basis, was told by oncology to put this on hold during work up. Call to lillie Reed moving forward at this time. Call to Dr. Gould to reinitiate referral to [facility]. 8. Advanced care planning. POLST has been completed, with DNA R/selective treatment. Continue to provide support regarding advanced care planning. Family very supportive. Plan to call in 2 to 3 weeks, patient will contact me sooner if further instruction needed on insomnia. We will continue to monitor and provide support as needed for symptom burden and/or advanced care planning. Time Spent: 45 minutes with greater than 50% of this done in counseling regarding symptom management, goals of care, and anticipatory guidance
== END 2019-02-15 17:19 | disposition home or self-care (01) ==
LOC: PC 17:18
PROVIDERS: ATTEND Nurse Practitioner Adult Health
DX: Z51.5 Encounter for palliative care (principal); G47.00 Insomnia, unspecified; C34.90 Malignant neoplasm of unspecified part of unspecified bronchus or lung; J91.0 Malignant pleural effusion; R09.02 Hypoxemia; M54.9 Dorsalgia, unspecified; G89.29 Other chronic pain; L98.9 Disorder of the skin and subcutaneous tissue, unspecified; I10 Essential (primary) hypertension; E11.9 Type 2 diabetes mellitus without complications; Z99.81 Dependence on supplemental oxygen; Z79.899 Other long term (current) drug therapy; Z79.84 Long term (current) use of oral hypoglycemic drugs; Z66 Do not resuscitate; Z86.19 Personal history of other infectious and parasitic diseases
CPT/HCPCS: 99349

== ENCOUNTER 2019-02-21 08:54 | Outpatient (CLI) | payer OTHER ==
--- NOTE | 2019-02-21 10:10 | XRAY Report ---
Reason: LUNG CA Procedure Date: 02/21/2019 Accession Number: [id number] / [id number] Procedure: WCP - Chest 2 View X-Ray CPT Code: 59627 FULL RESULT: EXAM: CHEST RADIOGRAPHY EXAM DATE: 02/21/2019 09:01 AM. CLINICAL HISTORY: Lung cancer. COMPARISON: CT 12/30/2018 and chest radiograph 02/04/2019. TECHNIQUE: 2 views. FINDINGS: Lungs/Pleura: Redemonstration of bilateral pleural effusions, small right greater than left. The right pleural effusion may be slightly decreased in size. Impression of innumerable bilateral pulmonary nodules, confirmed on the prior CT. No new lobar consolidation in aerated lung. No sizable pneumothorax. Mediastinum: The visualized portion of cardiomediastinal silhouette is essentially unchanged. Other: None. IMPRESSION: Redemonstration of bilateral pleural effusions and pulmonary nodules, right pleural effusion may be slightly decreased in size. RADIA
== END 2019-02-21 08:55 | disposition home or self-care (01) ==
LOC: DI.WCP 08:54
PROVIDERS: ATTEND Internal Medicine Hematology & Oncology
DX: C34.92 Malignant neoplasm of unspecified part of left bronchus or lung (principal); J90 Pleural effusion, not elsewhere classified
CPT/HCPCS: 71046

== ENCOUNTER 2019-05-25 08:34 | Outpatient (CLI) | payer OTHER | END 2019-05-25 08:35 | disposition home or self-care (01) | LOC: DI 08:34 | PROVIDERS: ATTEND Physician Assistant | DX: C34.92 Malignant neoplasm of unspecified part of left bronchus or lung (principal) | CPT/HCPCS: 93306 ==

== ENCOUNTER 2019-06-11 08:51 | Outpatient (CLI) | payer OTHER ==
[2019-06-11] MEDS ORDERED: IOVERSOL 320 100 ML VIAL IVP ONE ×2 (09:06→09:19)
--- NOTE | 2019-06-11 14:43 | CT Report ---
Reason: JAW PAIN, HX LUNG CA Procedure Date: 06/11/2019 Accession Number: [id number] / [id number] Procedure: CT - MAXILLOFACIAL W CPT Code: FULL RESULT: EXAM: CT MAXILLOFACIAL WITH CONTRAST EXAM DATE: 06/11/2019 09:17 AM. CLINICAL HISTORY: 78-year-old male. JAW PAIN, HX LUNG CA. COMPARISONS: CT head 12/30/2018 TECHNIQUE: Thin-section axial images were acquired of the face after administration of intravenous contrast. Post-processing: Coronal and sagittal reformats. Other: None. IV contrast: 80 mL Optiray 320. In accordance with CT protocol optimization, one or more of the following dose reduction techniques were utilized for this exam: automated exposure control, adjustment of mA and/or KV based on patient size, or use of iterative reconstructive technique. FINDINGS: Soft Tissue: Enlarged right-sided nodes are seen, concerning for ralph metastatic disease, there is a partially necrotic right level 2B lymph node measuring 32 x 19 mm (series 4 image 46), slightly more inferiorly a right level 2B/3 node measuring 31 x 21 mm (series 4 image 23), right level 3/4 node measuring 40 x 29 mm which is only partially visualized (series 4 image 7),right level 3 necrotic node measuring 19 x 15 mm (series 4 image 10), and a partially visualized 22 x 18 mm right level 4 node slightly more laterally (series 4 image 1). Orbits: Symmetric and unremarkable. Bones: No fracture or bone lesion. Temporomandibular Joints: The temporomandibular joints are symmetric and normally located. Sinuses: The left frontal sinus is markedly hypoplastic/aplastic. Moderate opacification of the right frontal sinus. Mucus retention cysts/polyps within maxillary sinuses bilaterally. The right sphenoid sinus is clear. Mild mucosal thickening left sphenoid sinus appeared mild mucosal thickening ethmoid air cells bilaterally. Glands: The parotid and submandibular glands are unremarkable. Other: None. IMPRESSION: 1. Bulky right-sided cervical adenopathy, with example nodes listed above, with some of the nodes demonstrating necrosis, overall compatible with ralph metastatic disease. 2. No CT evidence of other soft tissue masses, abscess, or definite mucosal abnormality. RADIA
== END 2019-06-11 08:52 | disposition home or self-care (01) ==
LOC: DI 08:51
PROVIDERS: ATTEND Family Medicine
DX: L04.0 Acute lymphadenitis of face, head and neck (principal); R68.84 Jaw pain; C34.90 Malignant neoplasm of unspecified part of unspecified bronchus or lung
CPT/HCPCS: 70487; Q9967

== ENCOUNTER 2019-06-22 08:52 | Outpatient (CLI) | payer OTHER ==
--- NOTE | 2019-06-22 20:26 | CONSULTATION NOTE ---
Palliative Care Follow Up - Referral Referring Provider: Dr. Lashay Gould Time of Visit: [id number] Referral setting: [facility] [place] Referral Reason: Met NonSmall Cell Lung CA/Right echj-lbv-fro pain - Information Sources Records reviewed: Previous records reviewed History/Review of Systems obtained from: Patient Exam limitations: No limitations - History of Present Illness Update Brief HPI Update: This is a ying 78-year old gentleman who presented in July 2018 with increased cough, shortness of breath, and a large left-sided pleural effusion. He was in work-up found to have stage IV lung cancer, and was initiated on immunotherapy of trametinib and dabrafenib since 12/24/2018. Patient has continued to do quite well, his recurrent pleural effusions have resolved, he is currently able to be off his oxygen with his O2 sats remaining above 90%, he does have some fluctuating activity tolerance, but overall he has returned to a level of functioning that has normalized his life. Is very pleased. Unfortunately over the last month, patient has had increasing right sided neck pain and swelling. Patient does have known chronic sinusitis, and polyps. Received a course of Penicillin without any improvement of symptoms, he did not identify any infectious symptoms, but was thought maybe it had to do with his pain. In follow-up with PCP that may be he had TMJ, he did see his dentist, he ruled that out. Patient has had panoramic x ray views per his report, he does have some studs put in for two molars on right side, and has not finished with this with the crowns, but this was over a year ago. On oral exam no signs or symptoms of infection, abscess, or abnormalities. Pain has exacerbated, he does have increased swelling in his supraclavicular area, pain and tenderness towards the back of his neck, radiates up into his neck area and to the area just in front of his auricle. In response to his complaints of pain, on 06/11/[address] of his maxillofacial, that did show bulky right-sided cervical adenopathy, with some of the nodes demonstrating necrosis, with report of overall compatible with ralph metastatic disease. Patient does have known right supraclavicular nodes documented originally on 08/24/[address] thorax with contrast, which reports right supraclavicular enlarged lymph nodes as well as right paratracheal enlarged lymph nodes. His other imaging that is available, shows a CT of brain scan on 12/30/2018, that does show a right posterior cervical lymph node at the inferior margin of the images that measured 1.8 x 1[address] And his CT angios of the chest 12/30/2018 again the mediastinum showed supraclavicular lymphadenopathy and ruling out PE. Of concern today, has been escalating pain. He had tried a soft diet and attempts to rule out TMG and work with this. He reports the pain escalates, it is intermittent in nature, it fluctuates and has sharp shooting nature to it. He has tried Advil without any response, has tried acetaminophen without a response, and now reports he is having difficulty sleeping on and off with it is well. He reports his pain at baseline is about a 6-10, it does go as high as a 10 out of 10. Has spasmodic component to it as well. He is concerned regarding the increasing pain and enlarging swelling on his right side of his neck. Social History - Living Situation Living arrangement: At home Living Situation: With spouse/s.o. (Patient lives with spouse Patricia, he has 2 daughters [place]. 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 He has returned to his normal activities, and was feeling pretty well until his last couple weeks with escalating right neck and jaw pain.) Medications/Allergies - Medications Home Medications: Ambulatory Orders Medication Instructions Recorded Confirmed Aspirin [Aspir 81] 81 mg PO DAILY 02/16/15 06/22/19 Felodipine [Felodipine ER] 10 mg PO DAILY 02/16/15 06/22/19 Metformin HCl [Glucophage] 1,000 mg PO BID 02/16/15 06/22/19 raNITIdine [Zantac] 150 mg ORAL BID 02/16/15 06/22/19 Atorvastatin [Lipitor] 10 mg PO DAILY 12/30/18 06/22/19 Dabrafenib Mesylate [Tafinlar] 150 mg PO BID 12/30/18 06/22/19 Metoprolol Tartrate 100 mg PO BID 12/30/18 06/22/19 Trametinib Dimethyl Sulfoxide 2 mg PO DAILY 12/30/18 06/22/19 [Mekinist] Furosemide 20 mg PO PRN PRN 01/14/19 06/22/19 Levothyroxine Sodium 200 mcg PO DAILY 01/14/19 06/22/19 HYDROcod/ACETAM 5/325 [[place] 5/325] 0.5 - 1 tab PO Q4HR PRN 06/22/19 06/22/19 Insulin Glargine [Lantus Solostar] 30 units SUBQ ACHS PRN MDD >200 06/22/19 06/22/19 Lisinopril 20 mg PO DAILY 06/22/19 06/22/19 traZODone [Desyrel] 50 mg PO ACHS PRN 06/22/19 06/22/19 - Allergies Allergies/Adverse Reactions: Allergies Allergy/AdvReac Type Severity Reaction Status Date / Time No Known Drug Allergies Allergy Verified 06/07/19 08:47 Review of Systems - Constitutional Constitutional: reports: Weight stable (192.5). denies: Fever, Chills - Eyes Eyes: reports: Vision loss, Corrective lenses - Cardiovascular Cardiovascular: reports: Other (restarted on 50% of lisinopril dosing has b/p elevated). denies: Palpitations, Chest pain - Respiratory Respiratory: reports: Other (not needing oxygen with sats managing well; uses occasionally for activity and at night). denies: SOB at rest - Gastrointestinal Gastrointestinal: reports: Good appetite. denies: Abdominal pain, Constipation, Nausea - Genitourinary Genitourinary: reports: Frequency (at night) - Musculoskeletal Musculoskeletal: denies: Muscle weakness - Integumentary Integumentary: reports: Dryness - Psychiatric Psychiatric: denies: Depression, Anxiety - Endocrine Endocrine: reports: Diabetes type 2 (had resumed his metformin; using lantus "prn"; restarted at 40 units if > 200 at night; has had a few very lows; trying to titrate) - Hematologic/Lymphatic Hematologic/Lymphatic: denies: Recurrent infections (treated recently with AB for sinusitis because of pain; no change in pain or symptoms) - All Other Systems All Other Systems: reports: Reviewed and negative Physical Exam - Vital Signs Pulse Rate: 49 Respiratory Rate: 18 O2 Saturation: 93 (ra @ rest) Blood Pressure: 169/79 (reports pain 6/10 to 10/10) - Physical Exam General Appearance: positive: Alert, Mild distress Eyes Bilateral: positive: Normal inspection ENT: positive: No signs of dehydration. negative: Pharyngeal erythema Neck: positive: Lymphadenopathy (R), Other (fullnes in thru right clavicular area up into right side of neck; tenderness to palpation; mild lymphadema; ROM to right impacted) Cardiovascular: positive: Regular rate & rhythm Respiratory: positive: No respiratory distress, Breath sounds nml, Diminished in bases (right greater than left). negative: Wheezes, Rales, Rhonchi Abdomen: positive: Non-tender, Soft, Nml bowel sounds Skin: positive: Pallor, Dryness Extremities: positive: No pedal edema Neurologic/Psychiatric: positive: Oriented x3, Mood/affect nml Palliative Care - POLST Patient has POLST: Yes POLST Status: DNR, Selective Treatment Pain: Pain worsening, Location (right neck/jaw area) Tiredness/Fatigue: None Drowsiness/Sedation: None Nausea: None Depression: None Anxiety: None Dyspnea: Mild (1-3) Anorexia: None Sleep: Variable sleep pattern Constipation: No - Palliative Care Discussion: Patient is quite grateful for the improvement in his quality of life, that the treatment has been working. He does have quite been anxiety with increasing pain and development of this latest swelling in his right neck area. He was not aware he had originally disease in the supraclavicular nodes, reassured will follow-up with oncologist, as had not had scan done prior to their appointment. Patient feels like he is doing well emotionally, he is grateful for both the quality and quantity time that has been allowed to do his treatment. We did discuss just the vulnerability and tenderness regarding waiting for "the other issue to drop". Counseling provided to normalize his response, patient does hav e a strong andre, does not worry so much about himself but also his family and impact his illness and eventual will have on them. Results - Lab Results Lab results reviewed: Yes Impression and Recommendations - Palliative Care Impression: This is a 78-year-old gentleman with stage IV lung cancer, with metastatic disease to the supraclavicular nodes. Patient now presents with escalating pain and discomfort in the area, otherwise is been fairly stable with no recurrent pleural effusions, and returning to a good level of functioning. Palliative care to continue to provide support regarding pain and symptom management and anticipatory guidance. Recommendations/Counseling Done: 1. Acute right neck and jaw pain. Patient is not getting relief and having escalating pain, is impacting his sleeping, and his pain is of significant severity of 6-10 over 10. Has not been responsive to Advil and/or acetaminophen. Will provide patient with [place], counseling provided regarding use half to full tab every 4 hours as needed, patient's pain has been intermittent in nature. If no relief, patient is to call me back, and can titrate higher. 2. Metastatic stage IV lung cancer. Will follow up with Dr. Antunez, She is not scheduled to see her for another 2 or 3 weeks. Will follow-up if other tests needed to facilitate further work-up and/or if expected outcome regarding his treatment with immunotherapy. 3. Diabetes type 2. Patient is on his metformin 1000 mg twice daily, he has had fluctuating blood sugars, have been mostly in a good range, patient with blood sugars greater than 200 has been intermittently dosing with Lantus. Patient reports FBSs in hypoglycemic range, encouraged to not let go below 100, patient has been starting with 40 of Lantus, encouraged to try 30 and titrate accordingly. 4. Hypertension. Patient has been restarted on his lisinopril at half dose, patient is hypertensive today. Patient is also experiencing a fairly severe level of pain. Instructed to continue to take a daily log, and follow-up with PCP if remains elevated. 5. Advanced care planning. Patient is aware treatment is palliative in nature, though now with immunotherapy prognosis is often improved. Patient is appreciative and grateful of his current quality of life, counseling provided regarding normalizing feelings of anxiety. Patient does have POLST in place with DNA R/selective treatments. He has good family support, Time Spent: 45 minutes with greater than 50% of this done in counseling regarding pain and symptom management, anticipatory guidance, and coordination of care with onc ology team
--- NOTE | 2019-06-23 08:36 | CONSULTATION NOTE ---
Palliative Care Follow Up - Referral Referring Provider: Dr. Chen Gould Time of Visit: [id number] [place] [facility] [place] Reason: Stage IV Lung Cancer/Right neck/jaw pain & swelling - Information Sources Records reviewed: Previous records reviewed History/Review of Systems obtained from: Patient Exam limitations: No limitations - History of Present Illness Update Brief HPI Update: This is a ying 78-year old gentleman who presented in July 2018 with increased cough, shortness of breath, and a large left-sided pleural effusion. He was in work-up found to have stage IV lung cancer, and was initiated on immunotherapy of trametinib and dabrafenib since 12/24/2018. Patient has continued to do quite well, his recurrent pleural effusions have resolved, he is currently able to be off his oxygen with his O2 sats remaining above 90%, he does have some fluctuating activity tolerance, but overall he has returned to a level of functioning that has normalized his life. Is very pleased. Unfortunately over the last month, patient has had increasing right sided neck pain and swelling. Patient does have known chronic sinusitis, and polyps. Received a course of Penicillin without any improvement of symptoms, he did not identify any infectious symptoms, but was thought maybe it had to do with his pain. In follow-up with PCP that may be he had TMJ, he did see his dentist, he ruled that out. Patient has had panoramic x ray views per his report, he does have some studs put in for two molars on right side, and has not finished with this with the crowns, but this was over a year ago. On oral exam no signs or symptoms of infection, abscess, or abnormalities. Pain has exacerbated, he does have increased swelling in his supraclavicular area, pain and tenderness towards the back of his neck, radiates up into his neck area and to the area just in front of his auricle. In response to his complaints of pain, on 06/11/[address] of his maxillofacial, that did show bulky right-sided cervical adenopathy, with some of the nodes demonstrating necrosis, with report of overall compatible with ralph metastatic disease. Patient does have known right supraclavicular nodes documented originally on 08/24/[address] thorax with contrast, which reports right supraclavicular enlarged lymph nodes as well as right paratracheal enlarged lymph nodes. His other imaging that is available, shows a CT of brain scan on 12/30/2018, that does show a right posterior cervical lymph node at the inferior margin of the images that measured 1.8 x 1.6. And his CT angios of the chest 12/30/2018 again the mediastinum showed supraclavicular lymphadenopathy and ruling out PE. Of concern today, has been escalating pain. He had tried a soft diet and attempts to rule out TMG and work with this. He reports the pain escalates, it is intermittent in nature, it fluctuates and has sharp shooting nature to it. He has tried Advil without any response, has tried acetaminophen without a response, and now reports he is having difficulty sleeping on and off with it is well. He reports his pain at baseline is about a 6-10, it does go as high as a 10 out of 10. Has spasmodic component to it as well. He is concerned regarding the increasing pain and enlarging swelling on his right side of his neck. Social History - Living Situation Living arrangement: At home Living Situation: With spouse/s.o. Support System: Patient lives at home with his , they have been snowbirds in the past going back and forth, his other home is in [place]. He has been very busy this summer his pain at his house, has resumed many of his normal activities, he does have family who are supportive in the area as well. Medications/Allergies - Medications Home Medications: Ambulatory Orders Medication Instructions Recorded Confirmed Aspirin [Aspir 81] 81 mg PO DAILY 02/16/15 06/22/19 Felodipine [Felodipine ER] 10 mg PO DAILY 02/16/15 06/22/19 Metformin HCl [Glucophage] 1,000 mg PO BID 02/16/15 06/22/19 raNITIdine [Zantac] 150 mg ORAL BID 02/16/15 06/22/19 Atorvastatin [Lipitor] 10 mg PO DAILY 12/30/18 06/22/19 Dabrafenib Mesylate [Tafinlar] 150 mg PO BID 12/30/18 06/22/19 Metoprolol Tartrate 100 mg PO BID 12/30/18 06/22/19 Trametinib Dimethyl Sulfoxide 2 mg PO DAILY 12/30/18 06/22/19 [Mekinist] Furosemide 20 mg PO PRN PRN 01/14/19 06/22/19 Levothyroxine Sodium 200 mcg PO DAILY 01/14/19 06/22/19 HYDROcod/ACETAM 5/325 [[place] 5/325] 0.5 - 1 tab PO Q4HR PRN 06/22/19 06/22/19 Insulin Glargine [Lantus Solostar] 30 units SUBQ ACHS PRN MDD >200 06/22/19 06/22/19 Lisinopril 20 mg PO DAILY 06/22/19 06/22/19 traZODone [Desyrel] 50 mg PO ACHS PRN 06/22/19 06/22/19 - Allergies Allergies/Adverse Reactions: Allergies Allergy/AdvReac Type Severity Reaction Status Date / Time No Known Drug Allergies Allergy Verified 06/07/19 08:47
== END 2019-06-22 08:53 | disposition home or self-care (01) ==
LOC: PC 08:52
PROVIDERS: ATTEND Nurse Practitioner Adult Health
DX: Z51.5 Encounter for palliative care (principal); G89.3 Neoplasm related pain (acute) (chronic); C77.0 Secondary and unspecified malignant neoplasm of lymph nodes of head, face and neck; C34.90 Malignant neoplasm of unspecified part of unspecified bronchus or lung; E11.9 Type 2 diabetes mellitus without complications; I10 Essential (primary) hypertension; Z79.4 Long term (current) use of insulin; Z79.899 Other long term (current) drug therapy; Z79.891 Long term (current) use of opiate analgesic; Z66 Do not resuscitate
CPT/HCPCS: 99215

== ENCOUNTER 2019-07-12 10:01 | Outpatient (CLI) | payer OTHER ==
[2019-07-12] MEDS ORDERED: IOVERSOL 320 100 ML VIAL IVP ONE ×2 (10:16→13:40)
--- NOTE | 2019-07-12 14:27 | CT Report ---
Reason: LUNG CA Procedure Date: 07/12/2019 Accession Number: [id number] / [id number] Procedure: CT - CHEST W CPT Code: FULL RESULT: EXAM: CT CHEST EXAM DATE: 07/12/2019 10:40 AM. CLINICAL HISTORY: LUNG CA. SS response to treatment COMPARISONS: CHEST ANGIO 12/30/2018 10:41 AM. TECHNIQUE: Routine helical CT imaging was performed through the chest. IV contrast: 80 Cc Optiray 320. Reconstructions: Coronal and sagittal. In accordance with CT protocol optimization, one or more of the following dose reduction techniques were utilized for this exam: automated exposure control, adjustment of mA and/or KV based on patient size, or use of iterative reconstructive technique. FINDINGS: Lungs/Pleura: Right pleural effusion has resolved. Minimal left pleural effusion with associated basilar airspace disease Innumerable pulmonary nodules have increased in size and number compared to the prior study. No pneumothorax. Mild hypoventilatory change left base. Mediastinum: Mediastinal lymph nodes are still present but decreased in size compared to the prior study. Reference lymph nodes on series 14: Image 62 8 mm, previously 10 mm Image 55 subcarinal 10 mm, previously 15 mm Image 54 adjacent to the right main pulmonary artery 6 mm, previously 11 mm Image 33 anterior mediastinal 9 mm, previously 10 mm Image 26 right paratracheal 12 mm stable Bones: Degenerative change in the spine similar to previous. Deformity spinous process T1 stable Included upper Abdomen: Left renal cyst. Small lymph nodes posterior to the diaphragm, and the inferior pericardial and upper abdominal fat. Other: See separate neck CT report IMPRESSION: Compared with 12/30/2018: 1. Significant increase in size and number of innumerable metastatic nodules to the lungs. 2. Decreased pleural effusions. 3. Slight decrease in mediastinal adenopathy. See separate neck CT report. RADIA
--- NOTE | 2019-07-12 15:22 | CT Report ---
Reason: LUNG CA Procedure Date: 07/12/2019 Accession Number: [id number] / [id number] Procedure: CT - SOFT TISSUE NECK W CPT Code: FULL RESULT: EXAM: CT SOFT TISSUE NECK WITH CONTRAST. EXAM DATE: 07/12/2019 10:40 AM. HISTORY: LUNG CA. COMPARISONS: CHEST W/ 07/12/2019 10:29 AM FACIAL BONES W/ 06/11/2019 9:10 AM CHEST ANGIO 12/30/2018 10:41 AM NECK 12/14/2008 1:35 PM. TECHNIQUE: Routine soft tissue neck CT protocol with contrast. Reconstructions: Coronal and sagittal. IV contrast: OPTI 320 80ML. In accordance with CT protocol optimization, one or more of the following dose reduction techniques were utilized for this exam: automated exposure control, adjustment of mA and/or KV based on patient size, or use of iterative reconstructive technique. FINDINGS: Multiple abnormal lymph nodes/masses exist: 1. Axial Image 24 immediately deep to the right sternocleidomastoid muscle level 5 two inseparable adjacent lymph nodes, the larger 1.8 cm in diameter and the smaller 1.2 cm in diameter. 2. Conglomerate enhancing lymph node mass along the posterior right sternocleidomastoid muscle extending vertically over 5.6 cm, maximum axial dimension 4.2 x 3.0 cm 5/36 and 2/34 with right internal jugular vein compression. 3. Conglomerate relatively low-attenuation lymph node mass immediately posterior to "2" 3.2 x 3.7 cm axial by 3.2 cm vertical, consider necrotic lymph nodes.. 4. Large right neck mass anteriorly displacing the right submandibular gland and laterally displacing the right sternocleidomastoid muscle extending inferiorly to the level of the sternal clavicular articulation and anteriorly to invade the right strap muscles. Trachea and esophagus are displaced anteriorly and left laterally with compression and narrowing of the supraglottic and glottic airway and potential for esophageal obstruction/aspiration. Posterior right lateral displacement of the right vascular sheath. Mass wraps posterior to the pharynx, crossing the midline. Maximal axial dimension approximately 7 cm, thickness approximately 4 cm, vertical extent approximately 7.5 cm. IMPRESSION: Extensive right neck adenopathy and mass as above with marked compression and displacement of adjacent structures. Potential for airway and esophageal obstruction. Results discussed with Dr. Antunez. TAYLER
== END 2019-07-12 10:02 | disposition home or self-care (01) ==
LOC: DI 10:01
PROVIDERS: ATTEND Internal Medicine Hematology & Oncology
DX: C34.92 Malignant neoplasm of unspecified part of left bronchus or lung (principal); R59.0 Localized enlarged lymph nodes; R22.1 Localized swelling, mass and lump, neck
CPT/HCPCS: 70491; 71260; Q9967

== ENCOUNTER 2019-07-19 13:27 | Outpatient (CLI) | payer MEDICARE ==
--- NOTE | 2019-07-19 18:18 | CONSULTATION NOTE ---
Palliative Care Follow Up - Referral Referring Provider: Dr. Lashay Gould Time of Visit: [id number] Referral setting: [facility] [place] Referral Reason: Pain of neoplastic origin/Stage IV Lung Cancer/ - Information Sources Records reviewed: Previous records reviewed History/Review of Systems obtained from: Patient, Family ( Patricia and daughter Susan present for visit) Exam limitations: No limitations - History of Present Illness Update Brief HPI Update: This is a 78-year-old gentleman who I last saw on 2 with increased right sided neck pain and swelling. Has since had further work-up showing progressive disease with increased adenopathy and increased tumor burden wrapping around his trachea and esophagus, causing increased difficulty with swallowing and some difficulty with respiratory secretions. He did start carboplatinum last week, including Decadron has diminished his pain as well as already experiencing some decrease in the swelling. He had minimal nausea, and is feeling quite positive as far as his response. He is still needed to use the hydrocodone, about 1 tab every 4 hours, pain is still sharp shooting up into the right area, but more intermittent in nature. Today his pain is a 1 out of 10. We did discuss in the context of his treating the underlying etiology, will continue to use short a cting pain medication to be able to titrate back in response to improvements with treatment. Continues with intermittent shortness of breath, his O2 sats have been improved, though he continues to wear oxygen at night and if he becomes hypoxic or fatigued. His past medical history includes type 2 diabetes, currently controlled, COPD, Graves' disease, hypertension, hyperlipidemia, hypothyroidism, lower extremity edema currently resolved. I am also meeting with the daughter and patient together. Counseling provided regarding normal grief and loss process, concern for progressive disease, and counseling in the context of anticipatory guidance and concerns. Social History - Living Situation Living arrangement: At home Living Situation: With spouse/s.o. Support System: Patient lives with his Patricia, He is quite tearful and concerned through appointment. We did discuss counseling and support for her, will have the palliative care blood bank technician meet with her. Patient has been a snowbird in the past going to [place] for the flores, she is been to Patricia for 55 years age. They did have a nice reprieve this summer.She does identify a support [place] of friends and cheondoism. Medications/Allergies - Medications Home Medications: Ambulatory Orders Medication Instructions Recorded Confirmed Aspirin [Aspir 81] 81 mg PO DAILY 02/16/15 07/22/19 Felodipine [Felodipine ER] 10 mg PO DAILY 02/16/15 07/22/19 Metformin HCl [Glucophage] 1,000 mg PO BID 02/16/15 07/22/19 raNITIdine [Zantac] 150 mg ORAL BID 02/16/15 07/22/19 Atorvastatin [Lipitor] 10 mg PO DAILY 12/30/18 07/22/19 Metoprolol Tartrate 100 mg PO BID 12/30/18 07/22/19 Furosemide 20 mg PO PRN PRN 01/14/19 07/22/19 Levothyroxine Sodium 200 mcg PO DAILY 01/14/19 07/22/19 HYDROcod/ACETAM 5/325 [[place] 5/325] 1 - 2 tab PO Q4HR PRN MDD 10 tabs 06/22/19 07/22/19 Insulin Glargine [Lantus Solostar] 30 units SUBQ ACHS PRN MDD >200 06/22/19 07/22/19 Lisinopril 20 mg PO DAILY 06/22/19 07/22/19 traZODone [Desyrel] 50 mg PO ACHS PRN 06/22/19 07/22/19 Folic Acid 1 mg PO DAILY 07/12/19 07/22/19 Ondansetron HCl [Zofran] 8 mg PO Q8H PRN 07/12/19 07/22/19 Prochlorperazine Maleate 10 mg PO Q6H PRN 07/12/19 07/22/19 [Compazine] dexAMETHasone [Dexamethasone] 4 mg PO BID 07/12/19 07/22/19 - Allergies Allergies/Adverse Reactions: Allergies Allergy/AdvReac Type Severity Reaction Status Date / Time No Known Drug Allergies Allergy Verified 07/19/19 13:10 Review of Systems - Constitutional Constitutional: reports: Fatigue, Weight loss (about 14 pounds this last month). denies: Fever, Chills - Ears, Nose & Throat Ears, Nose & Throat: reports: Hearing loss, Dry mouth - Cardiovascular Cardiovascular: reports: Exertional dyspnea, Decr. exercise tolerance - Respiratory Respiratory: reports: Sputum production (clear), SOB with exertion - Gastrointestinal Gastrointestinal: reports: Nausea (one episode with vomiting), Early satiety. denies: Constipation - Musculoskeletal Musculoskeletal: reports: Muscle weakness (more limited by dyspnea) - Integumentary Integumentary: reports: Dryness - Neurological Neurological: reports: General weakness - Psychiatric Psychiatric: reports: Depression, Anxiety - Endocrine Endocrine: reports: Diabetes type 2, Hypothyroidism - Hematologic/Lymphatic Hematologic/Lymphatic: reports: Anemia (mild 12.3 staring folic acid/b12) - All Other Systems All Other Systems: reports: Reviewed and negative Physical Exam - Vital Signs Pulse Rate: 58 Respiratory Rate: 18 O2 Saturation: 96 (ra @ rest) - Physical Exam General Appearance: positive: Alert Eyes Bilateral: positive: Normal inspection ENT: positive: No signs of dehydration Neck: positive: Lymphadenopathy (R). negative: Lymphadenopathy (L) Cardiovascular: positive: Regular rate & rhythm Respiratory: positive: Diminished in bases, Other (mild breathless noted with activity). negative: Wheezes, Rales, Rhonchi Abdomen: positive: Non-tender, Soft Skin: positive: Pallor, Dryness Extremities: positive: No pedal edema Neurologic/Psychiatric: positive: Oriented x3, Mood/affect nml, Weakness Palliative Care - POLST Patient has POLST: Yes POLST Status: DNR, Selective Treatment Pain: Pain improved, Severity (09/30 see HPI) Tiredness/Fatigue: Mild (1-3) Nausea: None Depression: Mild (1-3) Anxiety: Mild (1-3) Dyspnea: Moderate (4-6) Anorexia: Moderate (4-6) Constipation: Yes, Opoid induced, Managed Feelings of wellbeing/Perceived Quality of Life: Fair, Improved Performance Status: Patient ambulatory, though does get breathless with exertion. He has some increased activity intolerance, with more fatigue. He is able to attend to his own ADLs, but less able to do household tasks. - Palliative Care Discussion: Family meeting had to process his current recurrent disease, did acknowledge they do understand the seriousness of his illness, and are worried about the progression. They are thankful there is further treatment, and that he has responded so well, is quite tearful and overwhelmed, as well as acknowledged with daughter and some PTSD given this was about the time last year when he was first diagnosed. They are grateful for the support and time they have had, are somewhat anxious about the future. Counseling provided to normalize current grief and loss process. Is interested in meeting with the blood bank technician, will make referral to medical palliative care blood bank technician. Results - Lab Results Lab results reviewed: Yes Impression and Recommendations - Palliative Care Impression: This is a ying 78-year-old gentleman who unfortunately presents with progressive disease into his neck, trachea, and esophageal area. He also presents with increased lung nodules. He has had improved pain with the Decadron and 1 round of carboplatinum. His next round will include pemetrexed. They are appropriately anxious regarding this current turn of events. Palliative care to provide support for pain and symptom management and anticipatory guidance. Recommendations/Counseling Done: 1. Pain of neoplastic origin. Patient's current intermittent hydrocodone dosing does appear to be managing his pain to an acceptable level. Expectation would be his pain would continue to improve, counseled regarding opioid safety, currently effective, will not switch to long-acting as expectation would be most likely will decrease opioid need. Rx not needed at this time. 2. Dysphagia. He is having improvement with his swallowing, no episodes of choking, has had some weight loss related to difficulty with eating. Counseling provided regarding textures, encouraged to increase calories, patient satisfied with current weight. Reviewed goal would be no further weight loss and proper nutrition and hydration. 3. Depression. Patient feels currently is managing and coping with his current response to his illness. He does not feel he needs to meet with emergency medicine medical director at this time. Able to identify sources of support including his cheondoism community, coffee friends, and his family.Patient has been quite candid and sharing his feelings and concerns with palliative care nurse practitioner, will continue to meet with him on a regular basis. 4. Advanced care planning. Did meet with family which included , daughter and patient. Anticipatory guidance and discussion regarding his upcoming treatment, processing of their current fears and anxieties, and referral to palliative care blood bank technician for . Did offer support for daughter as well if wanted. Patient does have POLST in place, is actually quite clear on his goals, is wanting to continue with treatment to continue to improve both quantity and quality of life. Patient does have high risk for sequela related to his current tumor burden, will continue to monitor. Time Spent: 50 minutes with greater than 50% of this done regarding counseling around pain and symptom management, anticipatory guidance, and processing psychosocial issues/stressors related to progressive disease
== END 2019-07-19 13:28 | disposition home or self-care (01) ==
LOC: PC 13:27
PROVIDERS: ATTEND Nurse Practitioner Adult Health
DX: Z51.5 Encounter for palliative care (principal); G89.3 Neoplasm related pain (acute) (chronic); C34.90 Malignant neoplasm of unspecified part of unspecified bronchus or lung; R13.10 Dysphagia, unspecified; F32.9 Major depressive disorder, single episode, unspecified; Z79.899 Other long term (current) drug therapy; Z79.52 Long term (current) use of systemic steroids; Z79.891 Long term (current) use of opiate analgesic; Z66 Do not resuscitate
CPT/HCPCS: 99215

== ENCOUNTER 2019-07-20 08:00 | Outpatient (CLI) | payer MEDICARE | END 2019-07-20 23:59 | disposition home or self-care (01) | LOC: LAB.WCP 08:00 | PROVIDERS: ATTEND Family Medicine | DX: R31.9 Hematuria, unspecified (principal) | CPT/HCPCS: 87086 ==

== ENCOUNTER 2019-08-02 11:21 | Outpatient (CLI) | payer MEDICARE ==
--- NOTE | 2019-08-02 16:06 | CONSULTATION NOTE ---
Palliative Care Follow Up - Referral Referring Provider: Dr. Chen Gould Time of Visit: [id number]; 1250-1:10 Referral setting: [facility] [place] Referral Reason: Pain of neoplastic origin/depression/Stage IV Lung Cancer - Information Sources Records reviewed: RN notes reviewed, Previous records reviewed History/Review of Systems obtained from: Patient Exam limitations: No limitations - History of Present Illness Update Brief HPI Update: This is a 78-year-old gentleman who has stage IV lung cancer with worsening disease in the right neck. Patient has a mass that wraps around posterior to the pharynx, and progressive multiple pulmonary nodules noted on last CT scan. He is currently to receive his third course of carboplatinum and pemetrexed, oncology will be adding pembrolizumab today for the first time. Patient originally presented with acute and escalating right ear and neck pain, increased difficulty with swallowing and secretions, and weight loss. His pain is continue to improve, though it did escalate today, noting again the pattern of initiation in the right jaw spreading through the right ear and radiating down the right neck and into the shoulder. This continues intermittent in nature, he has though overall had continued pain improvement in response assumed to the chemotherapy, and down to hydrocodone 1 tablet 3 times a day. His pain though can escalate and is reported as far as severity of 4 out of 10 today. He does continue with some breathlessness noted on exam , though does not perceive it as problematic. His past medical history includes right pleural effusion, hypoxia, type 2 diabetes, currently controlled, COPD, Graves' disease, hypertension, hyperlipidemia, hypothyroidism, and lower extremity edema currently resolved. Social History - Living Situation Living arrangement: At home Living Situation: With spouse/s.o. Support System: Patient is to his ying Patricia for over 55 years. [place] he does though have a [place] of friends and moravian community. Her daughter Susan provides support as far as tracking both her parents, and participating in medical appointments. Patient presents with good social support Medications/Allergies - Medications Home Medications: Ambulatory Orders Medication Instructions Recorded Confirmed Aspirin [Aspir 81] 81 mg PO DAILY 02/16/15 08/02/19 Felodipine [Felodipine ER] 10 mg PO DAILY 02/16/15 08/02/19 Metformin HCl [Glucophage] 1,000 mg PO BID 02/16/15 08/02/19 raNITIdine [Zantac] 150 mg ORAL BID 02/16/15 08/02/19 Atorvastatin [Lipitor] 10 mg PO DAILY 12/30/18 08/02/19 Metoprolol Tartrate 100 mg PO BID 12/30/18 08/02/19 Furosemide 20 mg PO PRN PRN 01/14/19 08/02/19 Levothyroxine Sodium 200 mcg PO DAILY 01/14/19 08/02/19 HYDROcod/ACETAM 5/325 [[place] 5/325] 1 - 2 tab PO Q4HR PRN MDD 10 tabs 06/22/19 08/02/19 Insulin Glargine [Lantus Solostar] 30 units SUBQ ACHS PRN MDD >200 06/22/19 08/02/19 Lisinopril 20 mg PO DAILY 06/22/19 08/02/19 traZODone [Desyrel] 50 mg PO ACHS PRN 06/22/19 08/02/19 Folic Acid 1 mg PO DAILY 07/12/19 08/02/19 Ondansetron HCl [Zofran] 8 mg PO Q8H PRN 07/12/19 08/02/19 Prochlorperazine Maleate 10 mg PO Q6H PRN 07/12/19 08/02/19 [Compazine] dexAMETHasone [Dexamethasone] 4 mg PO BID 07/12/19 08/02/19 - Allergies Allergies/Adverse Reactions: Allergies Allergy/AdvReac Type Severity Reaction Status Date / Time No Known Drug Allergies Allergy Verified 08/02/19 12:27 Review of Systems - Constitutional Constitutional: reports: Fatigue, Weight stable. denies: Fever, Chills - Ears, Nose & Throat Ears, Nose & Throat: reports: Hearing loss (right ear), Postnasal drainage - Cardiovascular Cardiovascular: reports: Decr. exercise tolerance - Respiratory Respiratory: reports: Other (wearing oxygen at night). denies: SOB at rest - Gastrointestinal Gastrointestinal: reports: Other (some difficulty with swallowing though improved). denies: Constipation, Nausea, Reflux/heartburn - Musculoskeletal Musculoskeletal: reports: Stiffness - Integumentary Integumentary: reports: Dryness - Neurological Neurological: reports: General weakness - Psychiatric Psychiatric: denies: Depression, Anxiety - Endocrine Endocrine: reports: Diabetes type 2 (reports controlled BS though 282 today; attributed to decadron) - Hematologic/Lymphatic Hematologic/Lymphatic: reports: Anemia (hgb 11.7). denies: Recurrent infections - All Other Systems All Other Systems: reports: Reviewed and negative Physical Exam - Vital Signs Pulse Rate: 53 Respiratory Rate: 18 Blood Pressure: 131/58 - Physical Exam General Appearance: positive: No acute distress, Alert Eyes Bilateral: positive: Normal inspection ENT: positive: No signs of dehydration, Other (voice remains hoarse; needing to clear oral secretions through exam) Neck: positive: Other (firm mass right neck area; nontender appears similar in size to last exam 07/19 though less swelling into clavicular area) Cardiovascular: positive: Regular rate & rhythm Respiratory: positive: No respiratory distress, Diminished in bases. negative: Wheezes, Rales, Rhonchi Skin: positive: Pallor Extremities: positive: No pedal edema Neurologic/Psychiatric: positive: Oriented x3, Mood/affect nml Palliative Care - POLST Patient has POLST: Yes POLST Status: DNR, Selective Treatment Pain: Pain improved, Location (see HPI) Tiredness/Fatigue: Mild (1-3) Drowsiness/Sedation: None Nausea: None Depression: None Anxiety: None Dyspnea: None, Comment (patient denies dyspnea though presents with some pursed lip breathing with effort/activity) Anorexia: None Sleep: Sleeps well Constipation: Yes, Opoid induced, Managed Feelings of wellbeing/Perceived Quality of Life: Good, Improved - Palliative Care Discussion: Patient perceives he is doing well overall, denies any persistent symptoms of depressive feelings or sadness. He feels like he is coping though is concerned about residual pain and difficulty with swallowing, and does admit to some anxiety with adding new immunotherapy though encouraged that there continue to be options. Discussions regarding normalizing his current situation, looking forward to the holidays, and continues with good family support. Results - Lab Results Lab results reviewed: Yes Impression and Recommendations - Palliative Care Impression: This is a ying 78-year-old gentleman who is receiving treatment for progressive stage IV lung cancer, in the neck, trachea, and esophageal area as well as increased pulmonary nodules. He continues with improved pain management, though residual sharp shooting pains but managing on current regimen. Patient does have symptoms of dysphagia, concern for aspiration risk. Palliative care to provide support for pain and symptom management and anticipatory guidance. Recommendations/Counseling Done: 1. Pain of neoplastic origin. Patient's current intermittent hydrocodone dosing continues to be managing his pain an acceptable level, he is down to 1 tab 3 times a day. Expectation would be his pain would continue to improve, encouraged though to continue to titrate to comfort. We will continue to monitor if need to transition to long-acting formulation. 2. Dysphagia. Patient continues to have some improvement with his swallowing, denies any episodes of choking, has improved as far as intake and no further weight loss. Counseling provided regarding textures, safety, aspiration precautions, did offer speech therapy if needed more instruction and/or symptoms worsened. 3. Depression. Patient presents with no persistent depressive symptoms, does have some anxiety which would be appropriate. Patient does have good social support. Patient requesting continue to meet on a regular basis with palliative care for processing adjustment to illness. Follow-up regarding assistant purchasing manager referral for Patricia, she will contact in the next week. 4. Advanced care planning. Patient to continue with active treatment, adding immunotherapy today, continues to hope for the best. Patient does understand the seriousness of his illness, has baseline andre that provide support for coping. Patient does have DNA R and selective treatment, and will continue to weigh benefits and burdens of medical decisions as they arise. Patient does have high risk for sequela related to his current tumor burden, will continue to monitor. Time Spent: 45 minutes with greater than 50% of this done in counseling regarding symptom management, pain, adjustment to illness, and anticipatory guidance.
== END 2019-08-02 11:22 | disposition home or self-care (01) ==
LOC: PC 11:21
PROVIDERS: ATTEND Nurse Practitioner Adult Health
DX: Z51.5 Encounter for palliative care (principal); G89.3 Neoplasm related pain (acute) (chronic); C34.90 Malignant neoplasm of unspecified part of unspecified bronchus or lung; R13.10 Dysphagia, unspecified; K59.03 Drug induced constipation; T40.2X5A Adverse effect of other opioids, initial encounter; F32.9 Major depressive disorder, single episode, unspecified; E11.9 Type 2 diabetes mellitus without complications; Z79.891 Long term (current) use of opiate analgesic; Z79.899 Other long term (current) drug therapy; Z79.82 Long term (current) use of aspirin; Z79.4 Long term (current) use of insulin; Z79.52 Long term (current) use of systemic steroids; Z66 Do not resuscitate
CPT/HCPCS: 99215

== ENCOUNTER 2019-08-23 16:02 | Outpatient (CLI) | payer MEDICARE ==
--- NOTE | 2019-08-23 16:58 | CONSULTATION NOTE ---
Palliative Care Follow Up - Referral Referring Provider: Dr. Chen Gould Time of Visit: [id number] Referral setting: [facility] [place] Referral Reason: Pain of neoplastic origin/Stage IV Lung Cancer - Information Sources Records reviewed: RN notes reviewed, Previous records reviewed History/Review of Systems obtained from: Patient, Family (Susan daughter present for visit; Patricia joined at end) Exam limitations: Clinical condition (patient feeling poorly) - History of Present Illness Update Brief HPI Update: This is a 78-year-old gentleman who has stage IV lung cancer with worsening disease in his right neck. Patient has known mass that wraps around posterior to the pharynx, and progressive multiple pulmonary nodules noted on last CT scan. He had originally had some improvement with his regimen carboplatinum/pemetrexed since 06/2019. Today he presents with escalating pain of 8 out of 10, able to decrease to a 6 out of 10 with 2 Vicodin, reports this is been fairly persistent over the last 2 to 3 days and is concerned. Patient reports his pain is most relieved by taking the pressure off by leaning forward and putting his hands in his head. He does have increased pain laying flat and does better in the recliner, though has been sleeping fairly well. He continues to be challenged with eating, with some difficulty with swallowing, is watching his food textures. He has had some weight loss. He appears quite exhausted and fatigued, his daughter reports he is more irritable with increased pain, and appropriately increased anxiety in response. Patient also having increased difficulty with venous access, and is taking 2 sticks to be able to initiate infusions. Patient has not spoken with oncologist regarding Port-A-Cath. I will follow-up as also would be helpful if patient loses swallow, for future pain management needs. Patient's past medical history includes right pleural effusion currently resolved, hypoxia, type 2 diabetes, COPD, Graves' disease, hypertension, hyperlipidemia, hypothyroidism. Social History - Living Situation Living arrangement: At home Living Situation: With spouse/s.o. Support System: Lives at home with his Patricia, who they have been for 55 years. She has health challenges of her own, their daughter Susan, provides support and assistance with advocating for care. Patient does have support from community and [place] of friends, he is less inclined to engage though as he is feeling poorly. Medications/Allergies - Medications Home Medications: Ambulatory Orders Medication Instructions Recorded Confirmed Aspirin [Aspir 81] 81 mg PO DAILY 02/16/15 08/23/19 Felodipine [Felodipine ER] 10 mg PO DAILY 02/16/15 08/23/19 Metformin HCl [Glucophage] 1,000 mg PO BID 02/16/15 08/23/19 raNITIdine [Zantac] 150 mg ORAL BID 02/16/15 08/23/19 Atorvastatin [Lipitor] 10 mg PO DAILY 12/30/18 08/23/19 Metoprolol Tartrate 100 mg PO BID 12/30/18 08/23/19 Furosemide 20 mg PO PRN PRN 01/14/19 08/23/19 Levothyroxine Sodium 200 mcg PO DAILY 01/14/19 08/23/19 Insulin Glargine [Lantus Solostar] 30 units SUBQ ACHS PRN MDD >200 06/22/19 08/23/19 Lisinopril 20 mg PO DAILY 06/22/19 08/23/19 traZODone [Desyrel] 50 mg PO ACHS PRN 06/22/19 08/23/19 Folic Acid 1 mg PO DAILY 07/12/19 08/23/19 Ondansetron HCl [Zofran] 8 mg PO Q8H PRN 07/12/19 08/23/19 Prochlorperazine Maleate 10 mg PO Q6H PRN 07/12/19 08/23/19 [Compazine] dexAMETHasone [Dexamethasone] 4 mg PO BID 07/12/19 08/23/19 fentaNYL [Fentanyl 12mcg patch] 12 mcg TOP .72 HOURS MDD titrating 08/23/19 08/23/19 oxyCODONE [Roxicodone] 5 - 15 mg PO Q3HR PRN 08/23/19 08/23/19 - Allergies Allergies/Adverse Reactions: Allergies Allergy/AdvReac Type Severity Reaction Status Date / Time No Known Drug Allergies Allergy Verified 08/22/19 09:04 Review of Systems - Constitutional Constitutional: reports: Fatigue, Weakness, Weight loss (a few pounds over last week) - Ears, Nose & Throat Ears, Nose & Throat: reports: Hearing loss, Hearing aids, Postnasal drainage, Hoarseness - Cardiovascular Cardiovascular: reports: Decr. exercise tolerance - Respiratory Respiratory: reports: Cough (has coughing spasms; initiated by "tickle" in his throat), Sputum production (feels it is oral secretions/post nasal drip needing to expel;), SOB with exertion - Gastrointestinal Gastrointestinal: reports: Early satiety, Other (increase difficulty with eating and swallowing). denies: Constipation, Nausea - Musculoskeletal Musculoskeletal: reports: Stiffness, Muscle weakness - Integumentary Integumentary: reports: Dryness - Neurological Neurological: reports: General weakness - Psychiatric Psychiatric: reports: Depression, Anxiety - Endocrine Endocrine: reports: Diabetes type 2 (BS controlled) - Hematologic/Lymphatic Hematologic/Lymphatic: reports: Anemia (12.0), Lymphadenopathy (feels right neck enlarging). denies: Recurrent infections - All Other Systems All Other Systems: reports: Reviewed and negative Physical Exam - Vital Signs Temperature: 37 C Pulse Rate: 60 Respiratory Rate: 18 Blood Pressure: 128/53 - Physical Exam General Appearance: positive: Moderate distress (with pain), Anxious Eyes Bilateral: positive: Normal inspection Neck: positive: Lymphadenopathy (R) (fullness in right side of neck with increase firmness; enlarged from last exam with initial decrease in size). negative: Trachea midline (mild shift to left) Cardiovascular: positive: Regular rate & rhythm Respiratory: positive: Diminished throughout, Wheezes (upper airway exp. w heeze). negative: No respiratory distress (increased respiratory effort with talking noted), Rales, Rhonchi Abdomen: positive: Soft, Nml bowel sounds Skin: positive: Pallor, Dryness Extremities: positive: No pedal edema Neurologic/Psychiatric: positive: Oriented x3, Weakness, Depressed mood/affect, Flat affect, Other (irritable) Palliative Care - POLST Patient has POLST: Yes POLST Status: DNR, Selective Treatment Pain: Pain worsening, Severity (8/10 escalating pain at right base of ear radiating up into scalp area; fluctuating. Using Vicodin 2 tabs every 4 hours with improvement only to 6/10.) Tiredness/Fatigue: Severe (7-10) Drowsiness/Sedation: Moderate (4-6) Nausea: None Anorexia: Moderate (4-6), Weight loss Dyspnea: Moderate (4-6) (has not needed oxygen during day without worsening hypoxia; continues use at night) Depression: Moderate (4-6) (discouraged) Anxiety: Severe (7-10) (with escalating pain) Feelings of wellbeing/Perceived Quality of Life: Poor, Worsening Sleep: Sleeps well Constipation: Yes, Opoid induced, Managed - Palliative Care Discussion: Patient expressing concern and anxiety over escalating pain. Patient's daughter is present for visit, they are all quite concerned and are aware of the seriousness of his illness. Patient has expressed previously his gratefulness for having extended time, but is worried about being a burden on his family. Patient does have POLST in place his DNA R and selective treatments, patient's goals have been to focus on quality of life and continue treatment for as long as possible. Results - Lab Results Lab results reviewed: Yes Impression and Recommendations - Palliative Care Impression: Is a 78-year-old gentleman with stage IV lung cancer, with right neck mass, with concern regarding compression and narrowing of the supraglottic and glottic airway with potential for esophageal obstruction/aspiration. Patient initially had improvement to his carboplatinum/Pemetrexed in symptoms, unfortunately today he presents with escalating and severe pain. He is having more difficulty with oral secretions, has had some weight loss with swallowing difficulties, and presents with anxiety regarding his symptom burden. Palliative care to provide support regarding pain and symptom management and anticipatory guidance. Recommendations/Counseling Done: 1. Pain of neoplastic origin. Patient's pain is located in his right area adjacent and consistent with his tumor pressure/burden radiating up into his right ear and scalp area. He does get relief with bending forward and less pressure, he has been using his hydrocodone 5/325 acetaminophen 2 tabs every 4 hours, but severity of his pain is increased to 8/10 with medication down to 6/10. He reports is not exacerbated with chewing or eating, he has been able to sleep. He is at baseline fairly stoic, and thus concern regarding his current evaluation. Counseling provided regarding need to escalate opioids safely, given patient's potential for loss of swallow, will initiate fentanyl at 12 mcg patch, provide oxycodone 5 to 15 mg every 3 hours for breakthrough pain, and titrate accordingly. Counseling and teaching provided to both patient and family, also provided Narcan for opioid safety. Goal will be to titrate pain medications up every 3 or 4 days, and till pain better relieved. I will follow- up with Dr. Antunez, regarding escalation of pain, perhaps may be candidate for radiation. 2. Weight loss. This is multifactorial including the dysphagia, taste changes, has not had any choking but slowing of eating. Did counseling to encourage to re-visit adding protein drinks at least 2 a day, goal is to not lose any further weight. 3. Constipation. Patient has been managing his constipation with titrating his bowel meds, counseling reviewed regarding MiraLAX for softening and senna for frequency. 4. Depression. Patient does present with feeling discouraged, and worried about the implications of his escalating pain. Counseling provided to both patient and family to normalize response to current changes and future concerns regarding the seriousness of his illness. 5. Venous access. Patient has had increased difficulty with venous access, has not had a conversation previously about Port-A-Cath, will follow up with oncologist if this is appropriate at this juncture, patient willing to pursue. Time Spent: 45 minutes with greater than 50% of this done in counseling regarding pain, opioid safety, and anticipatory guidance. Coordination of care with oncology team.
== END 2019-08-23 16:03 | disposition home or self-care (01) ==
LOC: PC 16:02
PROVIDERS: ATTEND Nurse Practitioner Adult Health
DX: Z51.5 Encounter for palliative care (principal); G89.3 Neoplasm related pain (acute) (chronic); Z79.899 Other long term (current) drug therapy; Z79.891 Long term (current) use of opiate analgesic; E11.9 Type 2 diabetes mellitus without complications; J44.9 Chronic obstructive pulmonary disease, unspecified; I10 Essential (primary) hypertension; Z79.4 Long term (current) use of insulin; F41.9 Anxiety disorder, unspecified; F32.9 Major depressive disorder, single episode, unspecified; Z66 Do not resuscitate; R09.02 Hypoxemia; Z99.81 Dependence on supplemental oxygen; C34.90 Malignant neoplasm of unspecified part of unspecified bronchus or lung; R63.4 Abnormal weight loss; R13.10 Dysphagia, unspecified; R43.9 Unspecified disturbances of smell and taste; K59.03 Drug induced constipation; T40.2X5D Adverse effect of other opioids, subsequent encounter
CPT/HCPCS: 99215

== ENCOUNTER 2019-09-08 15:04 | Outpatient (CLI) | payer OTHER ==
--- NOTE | 2019-09-08 18:17 | CONSULTATION NOTE ---
Palliative Care Follow Up - Referral Referring Provider: Dr. Chen Gould Time of Visit: [id number] Referral setting: Home Referral Reason: Pain of neoplastic origin/Dysphagia/Wt. loss/Met Lung CA - Information Sources Records reviewed: Previous records reviewed History/Review of Systems obtained from: Patient, Family ( Patricia and daughter Susan present) Exam limitations: No limitations - History of Present Illness Update Brief HPI Update: This is a ying 78-year-old gentleman with stage IV lung cancer, with worsening disease in his head, with recent hospitalization at [place] 08/25 to 08/27. Patient presented 08/25 with increasing difficulty swallowing, unable to speak, increased trouble with breathing and unable to take food or fluids. Given patient's known risk for obstruction of airway, patient was advised to go to [place] for emergent evaluation. 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 Unfortunately it took time to be able to complete the CT, he did have an evaluation with speech therapy he found quite helpful, but was not able to be evaluated by radiation oncology. Slowly improved, with addition to fluids, he did show some silent aspiration, And was given aspiration precautions. He does have a pending follow-up speech therapy appointment on 09/12. Patient was seen by oncology, with ongoing progressive disease, treatment options were presented as third line systemic, palliative radiation to progressing neck mass, and/or hospice. He did go home as radiation oncology was not available, and saw Dr. Bonilla urgently on 08/31 to be able to facilitate urgent referral. He did meet with Antonino Coronado at [facility], they preferred to go north for travel ease. He is awaiting insurance approval, but has been simulated. He is also waiting to hear if he is going to continue and have concurrent chemotherapy with radiation therapy. Dr. Bonilla did recommend continuing current treatment, as he had some improvement from a 7 sonometer mass on exam 07/12 to now which is 4 cm in diameter a CAT scan provided at [place]. Patient unfortunately had a brief respite from his pain, but was escalating again so did start Fentanyl 12mcg on 09/02. Patient also transitioned to oxycodone. On Thursday patient's pain with some improvement but developed vomiting; somewhat spontaneous, started on ondansetron with relief. His pain is continued to escalate, and needing increase breakthrough pain medications, he took a total of 30 mg of oxycodone yesterday. Pain does fluctuate, is located in the neck, radiating up into the head and jaw area. Patient does appear uncomfortable, with some grimacing, his voice is quite hoarse, he has having increased trouble with this oral secretions. On examination patient does demonstrate fairly significantly white coated tongue, with areas on bilateral beautifully of white patches. Patient does have historically recurrent candidiasis, most likely adding to his difficulty with swallowing and discomfort. Patient has been using a pured diet, about 1 Glucerna to 2 a day. He has used milkshakes, but does present with weight loss. He also appears to have upper and lower extremity muscle wasting. On examination his neck actually swelling is less, is nontender to palpation, but does look painful and difficult for him to swallow. Social History - Living Situation Living arrangement: At home Living Situation: With spouse/s.o. Support System: Patient lives with his ying Patricia, they have been 55 years, she understandably is quite concerned and anxious. Their daughter Susan lives close by, and has been able to be available for appointments and transportation. It is been a big a week with the radiation and changes in his health, both appear to have caregiver fatigue. Medications/Allergies - Medications Home Medications: Ambulatory Orders Medication Instructions Recorded Confirmed Aspirin [Aspir 81] 81 mg PO DAILY 02/16/15 09/08/19 Felodipine [Felodipine ER] 10 mg PO DAILY 02/16/15 09/08/19 Metformin HCl [Glucophage] 1,000 mg PO BID 02/16/15 09/08/19 raNITIdine [Zantac] 150 mg ORAL BID 02/16/15 09/08/19 Atorvastatin [Lipitor] 10 mg PO DAILY 12/30/18 09/08/19 Metoprolol Tartrate 100 mg PO BID 12/30/18 09/08/19 Furosemide 20 mg PO PRN PRN 01/14/19 09/08/19 Levothyroxine Sodium 200 mcg PO DAILY 01/14/19 09/08/19 Insulin Glargine [Lantus Solostar] 30 units SUBQ QPM PRN MDD >200 06/22/19 09/08/19 Lisinopril 20 mg PO DAILY 06/22/19 09/08/19 traZODone [Desyrel] 50 mg PO QPM PRN 06/22/19 09/08/19 Folic Acid 1 mg PO DAILY 07/12/19 09/08/19 Ondansetron HCl [Zofran] 8 mg PO Q8H PRN 07/12/19 09/08/19 Prochlorperazine Maleate 10 mg PO Q6H PRN 07/12/19 09/08/19 [Compazine] dexAMETHasone [Dexamethasone] 4 mg PO BID 07/12/19 09/08/19 fentaNYL [Fentanyl 12mcg patch] 25 mcg TOP .72 HOURS 08/23/19 09/08/19 oxyCODONE [Roxicodone] 5 - 15 mg PO Q3HR PRN 08/23/19 09/08/19 Metoclopramide HCl 5 mg PO TID PRN 09/08/19 09/08/19 Nystatin 5 ml PO QID MDD 10 days 09/08/19 09/08/19 - Allergies Allergies/Adverse Reactions: Allergies Allergy/AdvReac Type Severity Reaction Status Date / Time No Known Drug Allergies Allergy Verified 08/31/19 16:06 Review of Systems - Constitutional Constitutional: reports: Fatigue, Weakness, Poor appetite, Weight loss (168 this am; 10 pounds in 6 weeks). denies: Fever, Chills - Eyes Eyes: reports: Vision loss - Ears, Nose & Throat Ears, Nose & Throat: reports: Hearing loss, Nasal congestion, Hoarseness, Mouth lesions - Cardiovascular Cardiovascular: denies: Edema, Decr. exercise tolerance - Respiratory Respiratory: reports: Sputum production (increased secretions; suspect mix of oral and respiratory) - Gastrointestinal Gastrointestinal: reports: Nausea (low grade), Vomiting (without nausea; food bolus gets caught, can be triggered by smells/textures), Early satiety, Other (on pureed diet; using supplement). denies: Constipation - Musculoskeletal Musculoskeletal: reports: Stiffness, Muscle weakness - Integumentary Integumentary: reports: Dryness - Neurological Neurological: reports: General weakness, Headache (worsened some improvement with pain medication), Memory problems (mild with meds) - Psychiatric Psychiatric: reports: Anxiety - Endocrine Endocrine: reports: Diabetes type 2 (bs in good range), Hypothyroidism - Hematologic/Lymphatic Hematologic/Lymphatic: reports: Anemia (hgb 12). denies: Recurrent infections - All Other Systems All Other Systems: reports: Reviewed and negative Physical Exam - Vital Signs Temperature: 96.9 C Pulse Rate: 67 Respiratory Rate: 20 O2 Saturation: 95 (ra @ rest) Blood Pressure: 122/62 - Physical Exam General Appearance: positive: Mild distress, Anxious Eyes Bilateral: positive: Other (eyes slightly reddened and watering) ENT: positive: Pharyngeal erythema, Oral lesions (tongue coated white; buccal white patches) Neck: positive: Tracheal deviation, Other (right neck mass decreased but fixed and hard) Cardiovascular: positive: Regular rate & rhythm Respiratory: positive: Other (upper airway sonorous sounds radiating into chest; bases diminished left greater than right; denies respiratory effort but presents with increased effort using some accessory muslces) Abdomen: positive: Non-tender, Soft Skin: positive: Pallor, Dryness, Bruising (UE from "sticks") Extremities: positive: No pedal edema Neurologic/Psychiatric: positive: Oriented x3, Weakness, Slurred/abnml speech (hoarse and more difficult to understand), Depressed mood/affect, Flat affect Palliative Care - POLST Patient has POLST: Yes POLST Status: DNR, Selective Treatment Pain: Pain worsening, Location (right neck/head), Severity (mod to severe), Pattern (fluctuates) Tiredness/Fatigue: Moderate (4-6) Drowsiness/Sedation: Moderate (4-6), Comment (feels like sleeping "all the time") Nausea: Mild (1-3), With vomiting Anorexia: Moderate (4-6), Weight loss Dyspnea: Mild (1-3) Depression: Moderate (4-6) Anxiety: Moderate (4-6) Feelings of wellbeing/Perceived Quality of Life: Worsening Sleep: Variable sleep pattern Constipation: Yes, Opoid induced, Managed Performance Status: Patient did go to coffee with his buddies this morning, though does report significant fatigue and overall drowsiness. Spending most of his time in recliner and/or bed. He is ambulatory and able to manage his own ADLs, but does appear to have had functional decline with weakness and increasing symptom burden. - Palliative Care Discussion: and daughter do present with increased anxiety, significant concerns regarding patient's ability to eat and swallow. Did answer and address multiple questions regarding tube feedings, as original POLST conversation had been no tube feedings are medically assisted nutrition. We discussed this in the context of the decisions currently which would be to support him in nutritional status to be able to tolerate treatment if needed, this original conversation was not for the intent and not prolonging suffering artificially. This was of great relief, I did discuss the curiosities in details about this, reassured would have adequate support and though it is "invasive" it is a fairly simple procedure. This is about the time of your last year when he was originally diagnosed, and was told he had weeks to months, they are quite anxious about all the pending appointments and treatment plan. Given patient's obstructive symptoms, certainly can understand the increased distress regarding this. Impression and Recommendations - Palliative Care Impression: This is a 78-year-old gentleman with stage IV lung cancer, with progressive right head and neck mass, concern for obstructive symptoms. Patient is to receive radiation, decreased risk and control disease. They are waiting to hear regarding Dr. Antunez's recommendation whether to do concurrently or delay Carboplatinum/pemetrexed with pembrolizumab. Patient presents with escalating pain, vomiting difficulty with dysphagia and weight loss. Palliative care continue to follow for pain and symptom management and anticipatory guidance. Recommendations/Counseling Done: 1. Vomiting. This appears multifactorial in origin, suspect some of this is related to textures, obstructive symptoms, and esophageal spasms. Patient has some low-grade nausea, but this is more spontaneous in nature in his description. Increasing likelihood to happen through the day and most often in evenings. Will initiate metoclopramide 5 mg scheduled a.m. and p.m., with option to add third dosing if helpful. Patient's been instructed to use the ondansetron 8 mg as needed up to 3 times a day for supplement. 2. Weight loss. Patient unable to tolerate large amounts of pured foods, combined with his episodic vomiting. Patient has been instructed to increase his supplement of Glucerna up to 3-4 times a day, and more if he is not able to take meals. Counseling provided regarding goal is not to lose further weight, but to remain weight neutral at this point. Counseling provided regarding benefits and burdens and needs in the future if does need PEG tube support. Patient would be open to this if it would help improve his quality of life and improve his quantity her ability to tolerate and complete treatment. 3. Oral candidiasis. Patient does have high risk for sequela of oral candidiasis, has been instructed to start his nystatin 5 mils 4 times a day. Counseling provided regarding proper technique and use, patient will do for 10 days and we will reevaluate. He may do need to restart this intermittently with his radiation. 4. Pain of neoplastic origin. Patient's pain is only moderately controlled, will increase fentanyl to 25 mcg patch starting tomorrow. Patient will continue to use oxycodone for breakthrough pain, the goal is to be able to manage pain with minimum breakthrough pain medication. Patient does have some sedation, though I suspect this is not only related to pain medication but to his overall disease burden and decline. 5. Depression. Patient and family present with increased depressive feelings, do appear quite fearful and appropriately so particular with most recent h ospitalization with obstructive symptoms. This was the time of year last year when he originally presented with his diagnosis, Acknowledged and recognize chest the difficult situation they are all facing. 6. Venous access. Patient has had increased difficulty with venous access, would like to pursue Port-A-Cath, was not able to have this conversation with oncologist with most recent acute hospitalization. Will have Dr. Antunez follow-up with next appointment. Time Spent: 50 minutes with greater than 50% of this done in counseling regarding pain and symptom management, addressing concerns and questions regarding acute process and recent progression of disease and symptoms. Palliative care will follow-up and next visit in 2 weeks after treatment plan established. If receiving chemotherapy will try and see during infusion.
== END 2019-09-08 15:05 | disposition home or self-care (01) ==
LOC: PC 15:04
PROVIDERS: ATTEND Nurse Practitioner Adult Health
DX: Z51.5 Encounter for palliative care (principal); G89.3 Neoplasm related pain (acute) (chronic); C34.90 Malignant neoplasm of unspecified part of unspecified bronchus or lung; R22.1 Localized swelling, mass and lump, neck; R13.10 Dysphagia, unspecified; R11.10 Vomiting, unspecified; R63.4 Abnormal weight loss; B37.0 Candidal stomatitis; F32.9 Major depressive disorder, single episode, unspecified; R53.83 Other fatigue; Z79.899 Other long term (current) drug therapy; Z79.891 Long term (current) use of opiate analgesic; Z79.52 Long term (current) use of systemic steroids; Z66 Do not resuscitate
CPT/HCPCS: 99349

== ENCOUNTER 2019-09-09 10:44 | Emergency (ER) | payer MEDICARE ==
[2019-09-09 11:30] LABS: BASOPHILS % (AUTO) 0.4 %; EOSINOPHILS # (AUTO) 0.2 10^3/uL (0.0-0.7); EOSINOPHILS % (AUTO) 2.2 %; HGB - HEMOGLOBIN 11.5 g/dL (14.0-18.0); LYMPHOCYTES % (AUTO) 13.2 %; MEAN CORPUSCULAR HEMOGLOBIN 27.3 pg (27.0-31.0); MEAN CORPUSCULAR HGB CONC 31.3 g/dL (32.0-36.0); MEAN CORPUSCULAR VOLUME 87.4 fL (80.0-94.0); MEAN PLATELET VOLUME 8.8 fL (7.4-11.4); MONOCYTES # (AUTO) 0.9 10^3/uL (0.0-1.0); MONOCYTES % (AUTO) 12.3 %; NEUTROPHILS # (AUTO) 5.3 10^3/uL (1.5-6.6); NEUTROPHILS % (AUTO) 71.2 %; PLT - PLATELET COUNT 291 10^3/uL (130-450); RED BLOOD COUNT 4.21 10^6/uL (4.70-6.10); RED CELL DISTRIBUTION WIDTH 15.2 % (12.0-15.0); WHITE BLOOD COUNT 7.4 x10^3/uL (4.8-10.8)
[2019-09-09 11:43] LABS: ALBUMIN 3.6 g/dL (3.2-5.5); BILIRUBIN,TOTAL 0.3 mg/dL (0.2-1.0); CALCIUM 9.2 mg/dL (8.5-10.3); TOTAL PROTEIN 7.2 g/dL (6.7-8.2)
[2019-09-09] MEDS ORDERED: SODIUM CHLORIDE 0.9% 1,000 ML IV ONE (12:28)
[2019-09-09] MEDS ORDERED: ONDANSETRON 4 MG/2 ML VIAL IVP STA (12:28)
--- NOTE | 2019-09-09 12:31 | ED Physician Documentation ---
PD HPI NVD - Stated complaint Stated Complaint: VOMTING/SWEATS/SHAVER - Chief complaint Chief Complaint: Abd Pain - History obtained from History obtained from: Patient, Family - History of Present Illness Timing - onset: Today (78-year-old gentleman with history of small cell lung cancer with metastases. Last chemotherapy was about 20 days ago. No history of abdominal surgeries. He started vomiting this morning not associated with abdominal pain or diarrhea. He denies sick contacts. No fevers but has had sweats. He has had a CAT scan of his head within the last few weeks at [place] which were negative for abnormalities per the family. He did have a right-sided headache earlier today.) Review of Systems Constitutional: reports: Sweats. denies: Fever, Chills Throat: reports: Sore throat. denies: Dental pain / toothache Cardiac: denies: Chest pain / pressure, Palpitations Respiratory: denies: Dyspnea, Cough PD PAST MEDICAL HISTORY - Past Medical History Cardiovascular: Hypertension, High cholesterol Respiratory: COPD, Shortness of breath, Other Endocrine/Autoimmune: Type 2 diabetes, HyPOthyroidism, Other GI: GERD : None HEENT: None Psych: None Musculoskeletal: Osteoarthritis, Fatigue, Other Derm: Other - Past Surgical History General: Colonoscopy, EGD - Present Medications Home Medications: Ambulatory Orders Medication Instructions Recorded Confirmed Aspirin [Aspir 81] 81 mg PO DAILY 02/16/15 09/08/19 Felodipine [Felodipine ER] 10 mg PO DAILY 02/16/15 09/08/19 Metformin HCl [Glucophage] 1,000 mg PO BID 02/16/15 09/08/19 raNITIdine [Zantac] 150 mg ORAL BID 02/16/15 09/08/19 Atorvastatin [Lipitor] 10 mg PO DAILY 12/30/18 09/08/19 Metoprolol Tartrate 100 mg PO BID 12/30/18 09/08/19 Furosemide 20 mg PO PRN PRN 01/14/19 09/08/19 Levothyroxine Sodium 200 mcg PO DAILY 01/14/19 09/08/19 Insulin Glargine [Lantus Solostar] 30 units SUBQ QPM PRN MDD >200 06/22/19 09/08/19 Lisinopril 20 mg PO DAILY 06/22/19 09/08/19 traZODone [Desyrel] 50 mg PO QPM PRN 06/22/19 09/08/19 Folic Acid 1 mg PO DAILY 07/12/19 09/08/19 Ondansetron HCl [Zofran] 8 mg PO Q8H PRN 07/12/19 09/08/19 Prochlorperazine Maleate 10 mg PO Q6H PRN 07/12/19 09/08/19 [Compazine] dexAMETHasone [Dexamethasone] 4 mg PO BID 07/12/19 09/08/19 fentaNYL [Fentanyl 12mcg patch] 25 mcg TOP .72 HOURS 08/23/19 09/08/19 oxyCODONE [Roxicodone] 5 - 15 mg PO Q3HR PRN 08/23/19 09/08/19 Metoclopramide HCl 5 mg PO TID PRN 09/08/19 09/08/19 Nystatin 5 ml PO QID MDD 10 days 09/08/19 09/08/19 Ondansetron Odt [Zofran] 4 mg TL Q6H PRN #10 tablet 09/09/19 Scopolamine [Transderm-Scop] 1 each TD Q3D PRN #3 patch.td72 09/09/19 - Allergies Allergies/Adverse Reactions: Allergies Allergy/AdvReac Type Severity Reaction Status Date / Time No Known Drug Allergies Allergy Verified 09/09/19 10:59 - Social History Does the pt smoke?: No Smoking Status: Never smoker - POLST Patient has POLST: Yes PD ED PE NORMAL - Vitals Vital signs reviewed: Yes - General General: Alert and oriented X 3, No acute distress - HEENT HEENT: PERRL, EOMI, Dentition benign - Neck Neck: Other (There is a firm mass on the right side of the neck consistent with metastatic disease. His airway is normal.) - Cardiac Cardiac: RRR, No murmur - Respiratory Respiratory: No respiratory distress, Clear bilaterally - Abdomen Abdomen: Other (High-pitched tinkling bowel sounds, no tenderness) - Derm Derm: No rash - Extremities Extremities: No edema, No calf tenderness / cord - Neuro Neuro: Alert and oriented X 3, No motor deficit, No sensory deficit, Normal speech Results - Vitals Vitals: Vital Signs - 24 hr 09/09/19 09/09/19 10:56 13:09 Temperature 36.6 C Heart Rate 53 L 59 L Respiratory 16 18 Rate Blood Pressure 121/51 L 130/56 L O2 Saturation 94 95 Oxygen O2 Source Room air - Labs Labs: Laboratory Tests 09/09/19 09/09/19 09/09/19 11:25 11:25 13:30 WBC 7.4 RBC 4.21 L Hgb 11.5 L Hct 36.8 L MCV 87.4 MCH 27.3 MCHC 31.3 L RDW 15.2 H Plt Count 291 MPV 8.8 Neut # (Auto) 5.3 Lymph # (Auto) 1.0 L [place] # (Auto) 0.9 Eos # (Auto) 0.2 Baso # (Auto) 0.0 Absolute Nucleated RBC 0.00 Nucleated RBC % 0.0 Sodium 137 Potassium 4.6 Chloride 94 L Carbon Dioxide 29 Anion Gap 14.0 H BUN 14 Creatinine 1.0 Estimated GFR (MDRD) 72 L Glucose 257 H Calcium 9.2 Total Bilirubin 0.3 AST 14 ALT 14 Alkaline Phosphatase 83 Total Protein 7.2 Albumin 3.6 Globulin 3.6 Albumin/Globulin Ratio 1.0 Lipase 18 L Urine Color YELLOW Urine Clarity CLEAR Urine pH 7.0 Ur Specific [place] 1.010 Urine Protein NEGATIVE Urine Glucose (UA) NEGATIVE Urine Ketones NEGATIVE Urine Occult Blood NEGATIVE Urine Nitrite NEGATIVE Urine Bilirubin NEGATIVE Urine Urobilinogen 0.2 (NORMAL) Ur Leukocyte Esterase NEGATIVE Ur Microscopic Review NOT INDICATED Urine Culture Comments NOT INDICATED - Rads (name of study) CT A/P Radiology: EMP read contemporaneously (Known primary pulmonary malignancy, diverticulosis, no bowel obstruction, renal cysts.) PD MEDICAL DECISION MAKING - ED course ED course: 78-year-old gentleman with history of metastatic small cell carcinoma undergoing chemotherapy and radiation presents with vomiting. Some concern for bowel obstruction based on his examination but this was not present on CT. After some IV fluids and Zofran he passed a p.o. challenge and remained nontender. Requesting discharge. Departure - Departure Disposition: 01 Home, Self Care Clinical Impression: Vomiting, Metastatic primary lung cancer Condition: Good Record reviewed to determine appropriate education?: Yes Instructions: ED Nausea Vomiting Prescriptions: Ondansetron Odt [Zofran] 4 mg TL Q6H PRN #10 tablet PRN Reason: Nausea / Vomiting Scopolamine [Transderm-Scop] 1 each TD Q3D PRN #3 patch.td72 PRN Reason: Nausea / Vomiting Comments: Call your doctor to arrange a follow-up appointment, make the next available appointment. In the interim, return anytime if worse or if new symptoms develop.
[2019-09-09] MEDS ORDERED: IOVERSOL 320 100 ML VIAL IVP ONE ×2 (13:34→16:04)
[2019-09-09 13:55] LABS: BILIRUBIN,URINE NEGATIVE (NEGATIVE); GLUCOSE, URINE (UA) NEGATIVE (NEGATIVE); KETONES,URINE (UA) NEGATIVE (NEGATIVE); LEUKOCYTE ESTERASE, URINE NEGATIVE (NEGATIVE); NITRITE,URINE NEGATIVE (NEGATIVE); OCCULT BLOOD,URINE NEGATIVE (NEGATIVE); PROTEIN,URINE NEGATIVE (NEGATIVE); UROBILINOGEN,URINE 0.2 (NORMAL) E.U./dL (NORMAL)
[2019-09-09 13:58] LABS: CLARITY,URINE CLEAR (CLEAR)
--- NOTE | 2019-09-09 14:28 | CT Report ---
Reason: IV contrast, vomiting Procedure Date: 09/09/2019 Accession Number: [id number] / [id number] Procedure: CT - Abdomen/Pelvis W CPT Code: Final Report FULL RESULT: EXAM: CT ABDOMEN AND PELVIS EXAM DATE: 09/09/2019 01:47 PM. CLINICAL HISTORY: IV contrast, vomiting. COMPARISONS: ABDOMEN/PELVIS W/WO 10/11/2018 8:15 AM. TECHNIQUE: Routine helical CT imaging was performed through the abdomen and pelvis. IV contrast: OPTI 320 100ML. Enteric contrast: No. Reconstructions: Coronal and sagittal. In accordance with CT protocol optimization, one or more of the following dose reduction techniques were utilized for this exam: automated exposure control, adjustment of mA and/or KV based on patient size, or use of iterative reconstructive technique. FINDINGS: Lung Bases: There is asymmetric nodular pleural thickening and pleural enhancement in the left chest. There is trace bilateral pleural effusion. There are innumerable pulmonary nodules. Liver: Normal. No masses. Gallbladder/Bile Ducts: Unremarkable. Spleen: Normal. Pancreas: The head and body of the pancreas appear atrophic. The pancreatic tail remains dense and unchanged. Adrenal Glands: Normal. Kidneys: There are multiple renal cortical cysts in the left kidney. There is no hydronephrosis. Peritoneal Cavity/Bowel: Stomach and duodenum appear within normal limits. The small bowel is normal in caliber. There is increased stool present throughout the colon. There is mild to moderate diverticulosis of the left colon. Pelvic Organs: Urinary bladder is unremarkable. Vasculature: There is moderate calcification of the aorta without aneurysm. Bones: There is degenerative disk disease at L3-L4 and L4-L5. There is a probable hemangioma in the L1 vertebral body which is unchanged. Other: None. IMPRESSION: 1. Findings of a disseminated malignancy in the chest with multiple hematogenous pulmonary nodules and extensive left pleural metastatic disease. 2. Colonic diverticulosis without acute diverticulitis. No evidence of mechanical bowel obstruction. 3. Incidental left renal cysts. RADIA
[2019-09-09 14:55] VITALS: BP 127/61
== END 2019-09-09 15:10 | disposition home or self-care (01) ==
LOC: ED 10:44
DX: R11.10 Vomiting, unspecified (principal); C34.90 Malignant neoplasm of unspecified part of unspecified bronchus or lung; C78.2 Secondary malignant neoplasm of pleura; C79.89 Secondary malignant neoplasm of other specified sites; J44.9 Chronic obstructive pulmonary disease, unspecified; I10 Essential (primary) hypertension; E11.9 Type 2 diabetes mellitus without complications; Z79.4 Long term (current) use of insulin; Z79.82 Long term (current) use of aspirin
CPT/HCPCS: 36415; 74177; 80053; 81003; 83690; 85025; 96361; 96374; 99284; Q9967; 81001; 87086

== ENCOUNTER 2019-09-16 07:15 | Day surgery (SDC) | payer OTHER ==
[~2019-09-16 07:15] MED LIST: KETAMINE 500 MG/10 ML VIAL IVP ONE; LIDOCAINE-MPF 2% 5 ML VIAL IM ONE; METOPROLOL 5 MG/5 ML VIAL IVP ONE; MIDAZOLAM 2 MG/2 ML VIAL IVP ONE; PROPOFOL 200 MG/20 ML VIAL IVP ONE
[2019-09-16] MEDS ORDERED: CEFAZOLIN SODIUM IN 0.9 % NACL 2 GM/100 ML BAG IV ONE (07:20)
--- NOTE | 2019-09-16 08:12 | ANESTHESIA ---
Pre-Anesthesia VS, & Labs - Diagnosis high risk aspiration with oral feeding - Procedure peg tube placement Vital Signs: Temp Pulse Resp BP Pulse Ox 36 C L 80 18 135/67 H 96 09/16/19 07:33 09/16/19 07:33 09/16/19 07:33 09/16/19 07:33 09/16/19 07:33 Height 5 ft 11 in Weight (kg) 72 kg Body Mass Index 23.8 - Lab Results Current Lab Results: Laboratory Tests 09/16/19 07:50: POC Whole Bld Glucose 161 H Home Medications and Allergies Aspirin [Aspir 81] 81 mg PO DAILY 02/16/15 Felodipine [Felodipine ER] 10 mg PO DAILY 02/16/15 Metformin HCl [Glucophage] 1,000 mg PO BID 02/16/15 raNITIdine [Zantac] 150 mg ORAL BID 02/16/15 Atorvastatin [Lipitor] 10 mg PO DAILY 12/30/18 Metoprolol Tartrate 100 mg PO BID 12/30/18 Levothyroxine Sodium 200 mcg PO DAILY 01/14/19 Insulin Glargine [Lantus Solostar] 30 units SUBQ QPM PRN MDD >200 06/22/19 lisinopriL [Lisinopril] 20 mg PO DAILY 06/22/19 Folic Acid 1 mg PO DAILY 07/12/19 fentaNYL [Fentanyl 12mcg patch] 25 mcg TOP .72 HOURS 08/23/19 oxyCODONE [Roxicodone] 5 - 15 mg PO Q3HR PRN 08/23/19 Metoclopramide HCl 5 mg PO TID PRN 09/08/19 Nystatin 5 ml PO QID MDD 10 days 09/08/19 Allergies/Adverse Reactions: Allergies Allergy/AdvReac Type Severity Reaction Status Date / Time pollen extracts AdvReac Itching Verified 09/16/19 07:59 Anes History & Medical History - Anesthetic History Anesthesia Complications: reports: No previous complications, Other-see comment (denies any previous anesthetics except a colonoscopy) Family history of Anesthesia Complications: Denies Family history of Malignant Hyperthermia: Denies - Medical History Cardiovascular: reports: Hypertension Pulmonary: reports: None, Other (lung cancer) Gastrointestinal: reports: GERD, Hiatal hernia Urinary: reports: None Neuro: reports: None Musculoskeletal: reports: Osteoarthritis Endocrine/Autoimmune: reports: Type 2 diabetes, HyPOthyroidism Skin: reports: None Smoking Status: Never smoker Psychosocial: reports: No issues indicated - Surgical History General: Colonoscopy Exam General: Alert, Oriented x3, Cooperative, No acute distress Dental: WNL Mouth Openin Fingerbreadth Mallampati classification: II Thyromental Distance: 4-6 cm Respiratory: Other (right lung mid to lower lobe crackles, left lung is very diminished overall.) Cardiovascular: Regular rate, Normal S1, Normal S2, No murmurs Abdomen: Normal bowel sounds, Soft, No tenderness, No hepatospenomegaly, No masses Extremities: No clubbing, No cyanosis, No edema, Normal pulses, No tenderness/swelling Neurological: Normal gait, Normal speech, Strength at 5/5 X4 ext, Normal tone, Sensation intact, Cranial nerves 3-12 NL, Reflexes 2+ Mental/Cognitive Status: Alert/Oriented X3, Normal for patient Cognitive Status: Within normal limits Plan Anesthesia Type: MAC (I have discussed the risk of the anesthesia with the patient his and hiw daughter. We discussed about the risk of having to put an endotracheal tube in and then risk of not being able to extubate and have him breath on his own. I have discussed with him that we will use minimal sedation to keep him comfortable enough for the proceedure but also awake enough to have him maintain his own airway. We talked about the potential risk of having to do an awake fiberoptic intubation as well. We also discussed the risk of esophageal bleeding with the endoscope and then the increased difficulty for endotracheal intubation) Consent for Procedure(s) Verified and Reviewed: Yes Code Status: Attempt Resuscitation ASA classification: 4-Incapacitating disease Is this case an emergency?: No
[2019-09-16] MEDS ORDERED: LACTATED RINGERS 1,000 ML IV ONE (08:13)
[2019-09-16] MEDS ORDERED: BENZOCAINE/TETRACAINE/BUTAMBEN 20 GM TOP ONE (09:29)
[2019-09-16 11:00] VITALS: BP 131/64
== END 2019-09-16 07:16 | disposition home or self-care (01) ==
LOC: SDS 07:15
PROVIDERS: ATTEND Internal Medicine Gastroenterology
PROC: 0DH63UZ Insertion of Feeding Device into Stomach, Percutaneous Approach (ICD-10-PCS; principal; 2019-09-16 08:45)
DX: C79.89 Secondary malignant neoplasm of other specified sites (principal); R13.12 Dysphagia, oropharyngeal phase; C34.91 Malignant neoplasm of unspecified part of right bronchus or lung; I10 Essential (primary) hypertension; K21.9 Gastro-esophageal reflux disease without esophagitis; K44.9 Diaphragmatic hernia without obstruction or gangrene; E11.9 Type 2 diabetes mellitus without complications; E03.9 Hypothyroidism, unspecified; M47.816 Spondylosis without myelopathy or radiculopathy, lumbar region; Z79.82 Long term (current) use of aspirin; Z79.4 Long term (current) use of insulin; Z79.891 Long term (current) use of opiate analgesic; Z87.891 Personal history of nicotine dependence

== ENCOUNTER 2019-09-20 09:43 | Outpatient (CLI) | payer OTHER ==
--- NOTE | 2019-09-20 15:33 | CONSULTATION NOTE ---
Palliative Care Follow Up - Referral Referring Provider: Dr. Chen Gould Time of Visit: 1015-11 Referral setting: [facility] [place] Referral Reason: Pain of neoplastic origin/Dysphagia/Met lung CA - Information Sources Records reviewed: RN notes reviewed, Previous records reviewed History/Review of Systems obtained from: Patient, Family ( Patricia and daughter Susan present for visit) Exam limitations: Clinical condition (patient lethargic has received benadryl previous to visit) - History of Present Illness Update Brief HPI Update: This is a ying 78-year-old gentleman with stage IV lung cancer, with worsening disease in his head/neck with concern for tracheoesophageal compression. Patient does have aspiration documented with swallow study 08/26/2019. He was hospitalized emergently at [place] 08/25 to 08/27. He has since seen radiation oncology to receive 16 treatments total, had a PEG tube placed, and today is receiving his concurrent chemotherapy of carbo/Taxol with ongoing pembrolizumab every 3 weeks. He has had some difficulty tolerating the tube feedings, with some intermittent vomiting, denies nausea but more triggered with gagging. Patient does have significant amount of oral secretions, with some difficulty with swallowing these. He did receive the Rekha section, but this can also trigger his gag reflex, counseling provided regarding use and gentler techniques. With the PEG tube, increased disease, daily radiation, family is feeling overwhelmed, is quite tearful today and appropriate regarding their expressed fears concerns. Patient is slightly lethargic is just had received Benadryl. He denies difficulty with respirations, though does have upper airway rhonchi, that do evan ar with mostly cough. He is at high risk for sequela of his disease for pneumonia. He does not have any fever, chills, or change in energy status. Reports his pain is fairly well controlled with the fentanyl 25 mcg patch, he has needed very little oxycodone, is having more trouble though swallowing pills. Even with crushed and taken with applesauce, patient will need to use his PEG tube for administration. Patient also presented with bleeding at his penile tip today, this is discovered by oncology nurse helping him to the bathroom. When examined, patient does have a small tear, reports trauma when he was trying to "pinch it off" last night, most likely will resolve on its own. Reports no pain or burning with urination. Patient denies fears or concerns regarding current symptoms and treatment, is somewhat pragmatic in taking it as it comes. He is hoping for some relief but does recognize the seriousness of his illness. Social History - Living Situation Living arrangement: At home Living Situation: With spouse/s.o. Support System: Patricia is primary caregiver, they have been 55 years, she is feeling somewhat overwhelmed with all the increased caregiving responsibilities. Their daughter Susan lives close by, and has been taking him to radiation and providing support. Did fill out FMLA paperwork for her. She is quite tearful today, patient can be quite irritable, and does take it out on her though he is quick to apologize. Both appear to have caregiver fatigue. Medications/Allergies - Medications Home Medications: Ambulatory Orders Medication Instructions Recorded Confirmed Aspirin [Aspir 81] 81 mg PO DAILY 02/16/15 09/16/19 Felodipine [Felodipine ER] 10 mg PO DAILY 02/16/15 09/16/19 Metformin HCl [Glucophage] 1,000 mg PO BID 02/16/15 09/16/19 raNITIdine [Zantac] 150 mg ORAL BID 02/16/15 09/16/19 Atorvastatin [Lipitor] 10 mg PO DAILY 12/30/18 09/16/19 Metoprolol Tartrate 100 mg PO BID 12/30/18 09/16/19 Levothyroxine Sodium 200 mcg PO DAILY 01/14/19 09/16/19 Insulin Glargine [Lantus Solostar] 30 units SUBQ QPM PRN MDD >200 06/22/19 09/16/19 lisinopriL [Lisinopril] 20 mg PO DAILY 06/22/19 09/16/19 Folic Acid 1 mg PO DAILY 07/12/19 09/16/19 fentaNYL [Fentanyl 12mcg patch] 25 mcg TOP .72 HOURS 08/23/19 09/16/19 oxyCODONE [Roxicodone] 5 - 15 mg PO Q3HR PRN 08/23/19 09/16/19 Metoclopramide HCl 5 mg PO TID PRN 09/08/19 09/13/19 Nystatin 5 ml PO QID MDD 10 days 09/08/19 09/16/19 Ondansetron Odt [Zofran] 4 mg TL Q6H PRN #10 tablet 09/09/19 09/16/19 - Allergies Allergies/Adverse Reactions: Allergies Allergy/AdvReac Type Severity Reaction Status Date / Time pollen extracts AdvReac Itching Verified 09/16/19 07:59 Review of Systems - Constitutional Constitutional: reports: Fatigue, Weight loss (158 another 10 pounds in less than week). denies: Fever, Chills - Ears, Nose & Throat Ears, Nose & Throat: reports: Nasal congestion, Dry mouth, Other (increased problems managing oral secretions; new yaker suction helps but gags if not careful with vomiting) - Cardiovascular Cardiovascular: reports: Lightheadedness, Decr. exercise tolerance - Respiratory Respiratory: reports: Cough. denies: SOB at rest - Gastrointestinal Gastrointestinal: reports: Diarrhea (had severe diarrhea with start of TF; improved today), Vomiting (vomiting several days in a row; not using antiemetic), Bloating, Poor appetite, Early satiety - Genitourinary Genitourinary: reports: Frequency (with "liquid diet"), Incontinence, Urethral discharge (bleeding at tip of penis had traumatized when "squeezed" to stop incontinence) - Musculoskeletal Musculoskeletal: reports: Stiffness, Muscle weakness - Integumentary Integumentary: reports: Dryness - Neurological Neurological: reports: General weakness, Memory problems, Abnormal gait (unsteady), Other (hoarseness; difficulty talking) - Psychiatric Psychiatric: denies: Depression, Anxiety - Endocrine Endocrine: reports: Diabetes type 2 (am bs 125; reports last night 178 ; metformin difficult to crush and has casing-inst. not to put in tube; lantus 30 units if bs > 200) - Hematologic/Lymphatic Hematologic/Lymphatic: reports: Anemia - All Other Systems All Other Systems: reports: Reviewed and negative Physical Exam - Vital Signs Temperature: 36.0 C Pulse Rate: 108 Respiratory Rate: 20 Blood Pressure: 129/62 - Physical Exam General Appearance: positive: Moderate distress, Lethargic Eyes Bilateral: positive: Other (periorbital edema) ENT: positive: Other (thick oral secretions; no s/s candidiasis; mouth slightly reddened no oral lesions; pharynx with limited visual spaces) Neck: positive: Other (right neck with still enlarged mass effect; less swelling; but ralph hardening at clavicular line) Cardiovascular: positive: Tachycardia Respiratory: positive: No respiratory distress, Rhonchi (sonorous breath sounds throughout; secretions/rhonchi noted upper airways;) Abdomen: positive: Non-tender, Nml bowel sounds, Distended, Taut, Other (PEG exit site without s/s infection). negative: Mass Skin: positive: Pallor, Dryness, Other (penile tear at 6 o'clock related trauma) Extremities: positive: No pedal edema Neurologic/Psychiatric: positive: Disoriented to time, Weakness, Flat affect Palliative Care - POLST Patient has POLST: Yes POLST Status: DNR, Selective Treatment Pain: Pain improved, Location (headache and right neck pain; patient needing very little oxycodone for breakthrough; currently on Fentanyl 25 mcg patch;) Tiredness/Fatigue: Moderate (4-6) Drowsiness/Sedation: Mild (1-3) Nausea: With vomiting (gagging triggers vomiting; little nausea with it; does appear to have some gastric stasis in review of timing/triggers/emesis) Anorexia: Weight loss Dyspnea: Moderate (4-6) Depression: None, Mild (1-3) Anxiety: Mild (1-3) Feelings of wellbeing/Perceived Quality of Life: Fair, Worsening Sleep: Sleep improved (is sleeping in reclinier to manage secretions) Constipation: No Performance Status: Patient has had a lot of weight loss and muscle wasting. He is quite weak, less steady on his feet. He is needing more assistance, is more sedentary. Is spending most of his time in his recliner and sleeping more. - Palliative Care Discussion: Patient only briefly able to engage, after return from the bathroom. He denies any fears or concerns, he does recognize the seriousness of his condition. He is trying to stay focused and does get through the radiation, he is hoping for relief of his symptoms and more quality time with his family. Spent some time with and daughter, they are fairly exhausted. is feeling quite overwhelmed, patient can be quite irritable and does tend to lash out as at her and then apologize. She is quite exhausted with increasing caregiving responsibilities. Susan her daughter, is taking time off work to help with transportation, she feels maxed out as well. Counseling and problem solving regarding who else in their network to provide her more support, even if they are not "doing anything" being available to Patricia and easing some of her burden. She was able to identify some family members, encouraged to reach out, message sent to palliative care infantry indirect fire crewmember for follow-up. Results - Lab Results Lab results reviewed: Yes Impression and Recommendations - Palliative Care Impression: This is a 78-year-old gentleman with stage IV lung cancer, with progressive right sided head and neck mass, currently receiving radiation. Patient does present with obstructive symptoms, has had some improvement. He is receiving concurrent chemotherapy with weekly carboplatinum/Taxol and Pembrolizumab. Patient presents with high symptom burden, related both to treatment and disease process, palliative care continue to work with patient and family for pain and symptom management and anticipatory guidance. Recommendations/Counseling Done: 1. Vomiting. Patient now has PEG tube, is doing 6 cans of bolus feeding, with water flushes. His most consistent time with vomiting has been in the a.m., suspect has to do with oral secretions building up as well as gag reflex and Kathi suctioning. Counseling provided regarding strategies for management, will initiate metoclopramide, has not done this hour prior to feeding, will give half carton, with half flushes and follow-up in 1 hour with second half. Goal is to decrease volume and help with gastric paresis. They will space other cartons through the day, but did instruct to use ondansetron 1 hour prior to radiation, and to at dinnertime do second dose of metoclopramide. Patient does have somewhat of a taut stomach, no pain or tenderness, will continue to adapt feeding schedule as patient builds tolerance to bolus feedings. 2. Dysphagia. Patient swallowing is worsening, increased trouble with oral secretions, suctioning does help but does trigger her gag reflex. Counseling provided regarding less aggressive technique, saline gargles to loosen secretions, currently does not show any signs of oral candidiasis. Patient aware to monitor, as had had recurrence. Patient not safe to take pills orally, counseling provided regarding crushing and diluting, recommended no metformin given has casings and more likely to cause problems with tube. 3. Diabetes type 2. Patient's blood sugars have been running in a good range, 125 in a.m., has not needed to use Lantus more than a couple times, last night was 172. Counseling provided regarding may need more consistent use of Lantus with holding metformin temporarily. Patient acknowledges understanding, he is managing his own blood sugars and insulin. 4. Pain of neoplastic origin. Patient's pain is better controlled on the fentanyl 25 mcg patch, he is needed less oxycodone for breakthrough pain, though may need more if side effects from radiation. Pain is mostly localized in the right neck area, does radiate and create headache pain at times. 5. Penile wound attributed to trauma. Patient able to identify precipitating event, does have small tear of foreskin. Patient instructed to use Vaseline, if painful or continues to reinjure. Patient denies any pain or burning with urination. Instructed to report if further problems. 6. Caregiver fatigue. Counseling provided regarding strategizing on incor porating other family members and friends for care team. Notified palliative care infantry indirect fire crewmember to reach out next week, counseling provided to normalize anxiety and grief process all are experiencing. Needed FMLA paperwork for daughter. Time Spent: 45 minutes with greater than 50% of this done in counseling regarding pain and symptom management, problem solving regarding PEG and feedings, as well as anticipatory guidance. I will plan to follow-up next week secondary to high symptom burden.
== END 2019-09-20 09:44 | disposition home or self-care (01) ==
LOC: PC 09:43
PROVIDERS: ATTEND Nurse Practitioner Adult Health
DX: Z51.5 Encounter for palliative care (principal); G89.3 Neoplasm related pain (acute) (chronic); R13.10 Dysphagia, unspecified; R63.4 Abnormal weight loss; E11.9 Type 2 diabetes mellitus without complications; C34.90 Malignant neoplasm of unspecified part of unspecified bronchus or lung; S31.21XA Laceration without foreign body of penis, initial encounter; X58.XXXA Exposure to other specified factors, initial encounter; Z79.899 Other long term (current) drug therapy; Z79.891 Long term (current) use of opiate analgesic; Z79.4 Long term (current) use of insulin; Z93.1 Gastrostomy status; Z66 Do not resuscitate
CPT/HCPCS: 99215

== ENCOUNTER 2019-09-27 11:24 | Outpatient (CLI) | payer OTHER ==
--- NOTE | 2019-09-27 12:39 | CONSULTATION NOTE ---
Palliative Care Follow Up - Referral Referring Provider: Dr. Lashay Gould Time of Visit: Referral setting: [facility] [place] Referral Reason: Pain of neoplastic origin/Met Lung Cancer/Weight loss - Information Sources Records reviewed: Previous records reviewed History/Review of Systems obtained from: Patient, Family ( at bedside) Exam limitations: Clinical condition (patient difficulty with talking/hoarsenss continues) - History of Present Illness Update Brief HPI Update: This is a 78-year-old gentleman with stage IV lung cancer, with worsening disease in his head and neck, with ongoing concern for tracheoesophageal compression. He is currently receiving concurrent chemotherapy of carbo Taxol with ongoing pembrolizumab every 2 weeks. He has 7 more radiation treatments to go, is getting some relief as far as ability to get secretions down, though still unable to manage his oral secretions and needing ongoing suctioning for management at home. He has been using the metoclopramide twice a day, as well as ondansetron prior to radiation has had no further episodes of vomiting, and is able to better tolerate his tube feedings. He is currently on 6 boxes, he has had another 3 pounds of weight loss, does weigh in at 155 today. He reports his pain is improving, has not needed anything for breakthrough pain, has had no further bleeding from his penis either. Patient feels like he is coping okay, his goal is to get through treatment, and hoping for improved quality of life as well as quantity. He is here today with his , she seems a little bit more calm, but there is schedule and needs continued to escalate. Social History - Living Situation Living arrangement: At home Living Situation: With spouse/s.o. Support System: Patient and are doing tube feeding together. Their daughter lives close by Susan, who is providing transportation and radiation and assistance and support for medical appointments. does get easily overwhelmed, though is less tearful today. Patient has significant hoarseness, so making communication difficult. Medications/Allergies - Medications Home Medications: Ambulatory Orders Medication Instructions Recorded Confirmed Aspirin [Aspir 81] 81 mg PO DAILY 02/16/15 09/27/19 Felodipine [Felodipine ER] 10 mg PO DAILY 02/16/15 09/27/19 Metformin HCl [Glucophage] 1,000 mg PO BID MDD hold 02/16/15 09/27/19 raNITIdine [Zantac] 150 mg ORAL BID 02/16/15 09/27/19 Atorvastatin [Lipitor] 10 mg PO DAILY 12/30/18 09/27/19 Metoprolol Tartrate 100 mg PO BID 12/30/18 09/27/19 Levothyroxine Sodium 200 mcg PO DAILY 01/14/19 09/27/19 Insulin Glargine [Lantus Solostar] 10 units SUBQ QPM PRN MDD >250 06/22/19 09/27/19 lisinopriL [Lisinopril] 20 mg PO DAILY 06/22/19 09/27/19 Folic Acid 1 mg PO DAILY 07/12/19 09/27/19 fentaNYL [Fentanyl 12mcg patch] 25 mcg TOP .72 HOURS 08/23/19 09/27/19 oxyCODONE [Roxicodone] 5 - 15 mg PO Q3HR PRN 08/23/19 09/27/19 Metoclopramide HCl 5 mg PO TID PRN 09/08/19 09/27/19 Nystatin 5 ml PO QID MDD 10 days 09/08/19 09/27/19 Ondansetron Odt [Zofran] 4 mg TL Q6H PRN #10 tablet 09/09/19 09/27/19 - Allergies Allergies/Adverse Reactions: Allergies Allergy/AdvReac Type Severity Reaction Status Date / Time pollen extracts AdvReac Itching Verified 09/27/19 09:27 Review of Systems - Constitutional Constitutional: reports: Fatigue, Weight loss. denies: Fever, Chills - Ears, Nose & Throat Ears, Nose & Throat: reports: Hearing loss (right ear), Postnasal drainage (feels some of drainage is postnasal drip), Hoarseness, Other (worsening oral secretions; using suction) - Cardiovascular Cardiovascular: reports: Decr. exercise tolerance. denies: Chest pain, Edema - Respiratory Respiratory: reports: Cough, Wheezing, SOB with exertion - Gastrointestinal Gastrointestinal: reports: Vomiting (this am with suctioning;), Bloating, Early satiety, Other (has trialed jello). denies: Constipation, Diarrhea, Nausea, Reflux/heartburn - Genitourinary Genitourinary: reports: Frequency, Other (no further penile bleeding) - Musculoskeletal Musculoskeletal: reports: Stiffness, Muscle weakness - Integumentary Integumentary: reports: Dryness, Other (PEG exit site without drainage) - Neurological Neurological: reports: General weakness, Headache (improved/mostly resolved), Slurred speech (mechanical) - Psychiatric Psychiatric: denies: Depression, Anxiety - Endocrine Endocrine: reports: Diabetes type 2 (hypoglycemic the last few morinings; had taken 10 units of lantus; is not taking metformin currently pill too big; inst. NOT to take lantus unless greater than 250) - Hematologic/Lymphatic Hematologic/Lymphatic: reports: Anemia. denies: Recurrent infections (high risk for aspiration pneumonia) - All Other Systems All Other Systems: reports: Other (limited ROS;) Physical Exam - Vital Signs Temperature: 36.6 C Pulse Rate: 86 Respiratory Rate: 20 Blood Pressure: 116/50 - Physical Exam General Appearance: positive: Mild distress (with respiratory effort) Eyes Bilateral: positive: Normal inspection ENT: positive: Other (using nystatin; slightly white coating; buccal clear). negative: Pharynx nml (limited space; no redness or swelling noted on exam) Neck: positive: Other (right neck swelling firm; no change from last week; nontender) Cardiovascular: positive: Regular rate & rhythm Respiratory: positive: Rhonchi (upper airway rhonchi scattered throughout) Abdomen: positive: Soft, Nml bowel sounds, Distended, Other (PEG site good) Skin: positive: Pallor, Dryness Extremities: positive: No pedal edema Neurologic/Psychiatric: positive: Oriented x3, Mood/affect nml, Weakness, Slurred/abnml speech, Flat affect Palliative Care - POLST Patient has POLST: Yes POLST Status: DNR, Selective Treatment Pain: Pain improved, Location (right neck and headache; using fentanyl 25 mcg q 3 days; not needing anything for BTP; has oxycodone) Tiredness/Fatigue: Severe (7-10) Drowsiness/Sedation: Moderate (4-6) Nausea: Mild (1-3) Anorexia: Moderate (4-6) (early satiety), Weight loss Dyspnea: Severe (7-10) (using 02 at night; sats 92 percent; watching closely) Depression: None Anxiety: Mild (1-3) Feelings of wellbeing/Perceived Quality of Life: Fair, Acceptable Constipation: Yes, Opoid induced, Managed Performance Status: Patient with increasing fatigue, is mostly sedentary at home. Can do his own ADLs, helping with TF and medication support, though patient still tracking and managing. - Palliative Care Discussion: Patient drifting in and out as had received Benadryl for chemo again. Reports no significant concerns or worries. Just trying to get through this next couple weeks. doing somewhat better, continue to struggle with increasing care needs, family continues to be concerned about patient's underlying status.Hoping for good response from radiation, worried about the severity of his symptoms and concerns for breathing/swallowing. Results - Lab Results Lab results reviewed: Yes Impression and Recommendations - Palliative Care Impression: This is 78-year-old gentleman with stage IV lung cancer, with progressive right-sided head and neck mass, currently receiving concurrent radiation and chemotherapy. Patient does feel some relief with radiation, this obstructive symptoms, but continues to have fairly significant scattered rhonchi, large amount of oral secretions, is able to swallow but still needing assistance for clearing with suctioning. Patient does report improvement in pain, though he does present with another 3 pound weight loss, and had hypoglycemia this morning. Palliative care continue provide support regarding pain and symptom management and anticipatory guidance. Recommendations/Counseling Done: 1. Pain of neoplastic origin. Patient is getting relief with radiation, has not needed any breakthrough oxycodone. Though he is coming into concern for side effects of the radiation, currently has no localized pain other than his baseline pain in his right ear, jaw, and intermittent headache, and fluctuating neck pain. He is currently on fentanyl 25 mcg patch, will continue currently, though can reevaluate and decrease to 12 mcg if patient continues to improve. I suspect though he will be experiencing some increased side effects from the radiation before he will have a new baseline pain. 2. Gastricstasis. Patient is responding well to metoclopramide to twice daily, reports no further episodes of vomiting other than this a.m. when triggered gag reflex. Reports actually contents are mostly secretions, versus feeding. I suspect he has some pooling. Instructed to continue the metoclopramide, does not have any trouble with constipation at this point in time. His abdomen seems softer today. 3. Hypoglycemia. Patient having fluctuating blood sugars, though has been running fairly low the last few mornings, did take 10 units of Lantus last night. Reports his blood sugar was 188. Discussed is better for him to run high than low at this point in time given his weight loss, and decreased caloric intake. Patient currently not taking metformin as cannot swallow, and crushed med cannot go through tube. Patient instructed to take only 10 of Lantus, if blood sugar greater than 250 and continue to monitor. 4. Weight loss. They already spend quite a bit of time with his feedings, I did instruct to add 1/4 to 1/2 box to his feedings to total 7 to 8 boxes. Patient is tolerating currently, with no further diarrhea. We will continue to monitor, patient is trying some oral intake, though reviewed patient's high risk for sequela of pneumonia, and to monitor carefully. 5. Head/neck mass. Patient does present with quite a bit of scattered rhonchi in his upper anterior lobes, does have a weak cough, remains at high risk for aspiration pneumonia. Counseling provided regarding signs and symptoms with fever chills alteration in mental status, or increased respiratory distress. They do have an oximeter, neuro monitoring closely. 6. Advanced care planning. Patient denies any increased distress today, caregiver fatigue continues with , but she appears improved. We will continue to monitor and provide support. Patient is to get a Port-A-Cath placed 10/07. We will continue to monitor on a weekly basis to titrate medications appropriately. Time Spent: 25 minutes with greater than 50% of this done in counseling regarding pain and symptom management, management of diabetes, monitoring for symptoms of aspiration pneumonia and anticipatory guidance
== END 2019-09-27 11:25 | disposition home or self-care (01) ==
LOC: PC 11:24
PROVIDERS: ATTEND Nurse Practitioner Adult Health
DX: Z51.5 Encounter for palliative care (principal); G89.3 Neoplasm related pain (acute) (chronic); R19.8 Other specified symptoms and signs involving the digestive system and abdomen; R53.83 Other fatigue; E11.649 Type 2 diabetes mellitus with hypoglycemia without coma; R63.4 Abnormal weight loss; C79.89 Secondary malignant neoplasm of other specified sites; C34.90 Malignant neoplasm of unspecified part of unspecified bronchus or lung; Z79.899 Other long term (current) drug therapy; Z79.82 Long term (current) use of aspirin; Z79.891 Long term (current) use of opiate analgesic; Z66 Do not resuscitate; Z93.1 Gastrostomy status
CPT/HCPCS: 99214

== ENCOUNTER 2019-10-07 07:19 | Day surgery (SDC) | payer MEDICARE ==
[2019-10-07] MEDS ORDERED: LACTATED RINGERS 1,000 ML IV ONE (07:29)
[2019-10-07] MEDS ORDERED: CEFAZOLIN SODIUM IN 0.9 % NACL 2 GM/100 ML BAG IV ONE (08:24)
--- NOTE | 2019-10-07 08:40 | ANESTHESIA ---
Pre-Anesthesia VS, & Labs - Diagnosis lung cancer - Procedure port placement Vital Signs: Temp Pulse Resp BP Pulse Ox 36.4 C L 109 H 20 123/74 95 10/07/19 07:30 10/07/19 07:30 10/07/19 07:30 10/07/19 07:30 10/07/19 07:30 Height 5 ft 11 in Weight (kg) 69.5 kg Body Mass Index 21.7 - NPO >8 hours - Lab Results Current Lab Results: Laboratory Tests 10/07/19 07:46: POC Whole Bld Glucose 137 H Home Medications and Allergies Aspirin [Aspir 81] 81 mg PO DAILY 02/16/15 Felodipine [Felodipine ER] 10 mg PO DAILY 02/16/15 Metformin HCl [Glucophage] 1,000 mg PO BID MDD hold 02/16/15 raNITIdine [Zantac] 150 mg ORAL BID 02/16/15 Atorvastatin [Lipitor] 10 mg PO DAILY 12/30/18 Metoprolol Tartrate 100 mg PO BID 12/30/18 Levothyroxine Sodium 200 mcg PO DAILY 01/14/19 Insulin Glargine [Lantus Solostar] 10 units SUBQ QPM PRN MDD >250 06/22/19 lisinopriL [Lisinopril] 20 mg PO DAILY 06/22/19 Folic Acid 1 mg PO DAILY 07/12/19 fentaNYL [Fentanyl 12mcg patch] 25 mcg TOP .72 HOURS 08/23/19 oxyCODONE [Roxicodone] 5 - 15 mg PO Q3HR PRN 08/23/19 Metoclopramide HCl 5 mg PO TID PRN 09/08/19 Nystatin 5 ml PO QID MDD 10 days 09/08/19 Allergies/Adverse Reactions: Allergies Allergy/AdvReac Type Severity Reaction Status Date / Time pollen extracts AdvReac Itching Verified 09/27/19 09:27 Anes History & Medical History - Medical History Cardiovascular: reports: Hypertension Pulmonary: reports: Other (lung cancer, undergoing radiation treatments, and weekly chemotherapy) Gastrointestinal: reports: GERD, Hiatal hernia, Other Urinary: reports: None Neuro: reports: None Musculoskeletal: reports: Osteoarthritis Endocrine/Autoimmune: reports: Type 2 diabetes, HyPOthyroidism Skin: reports: None Smoking Status: Never smoker - Surgical History General: Colonoscopy Exam General: Alert Dental: WNL Mouth Opening: Greater than 4 Fingerbreadths Mallampati classification: III Thyromental Distance: greater than 6 cm Respiratory: Decreased breath sounds, Rales Cardiovascular: Regular rate, Normal S1, Normal S2 Mental/Cognitive Status: Alert/Oriented X3 Plan Anesthesia Type: MAC Consent for Procedure(s) Verified and Reviewed: Yes Code Status: Attempt Resuscitation ASA classification: 4-Incapacitating disease Is this case an emergency?: No
[2019-10-07] MEDS ORDERED: MIDAZOLAM 2 MG/2 ML VIAL IVP ONE (09:01)
[2019-10-07] MEDS ORDERED: KETAMINE 500 MG/10 ML VIAL IVP ONE (09:01)
[2019-10-07] MEDS ORDERED: PROPOFOL 200 MG/20 ML VIAL IVP ONE (09:01)
[2019-10-07] MEDS ORDERED: LIDOCAINE-MPF 2% 5 ML VIAL IM ONE (09:01)
[2019-10-07] MEDS ORDERED: LIDOCAINE 1% 50 ML MDV SUBQ ONE ×2 (09:34)
[2019-10-07] MEDS ORDERED: ONDANSETRON 4 MG/2 ML VIAL IVP PRN (10:06)
[2019-10-07] MEDS ORDERED: oxyCODONE 5 MG TABLET PO PRN (10:06)
[2019-10-07 10:59] VITALS: BP 106/65
--- NOTE | 2019-10-07 11:14 | OPERATIVE REPORT ---
DATE OF SERVICE: 10/07/2019 Physician: Rubén Alexander MD PREOPERATIVE DIAGNOSIS: Lung cancer. POSTOPERATIVE DIAGNOSIS: Lung cancer. PROCEDURE PERFORMED: Insertion of PowerPort. ANESTHESIA: Local plus monitored anesthesia care by Feliciano Haas CRNA. SURGEON: Rubén Alexander MD ESTIMATED BLOOD LOSS: 10 mL COMPLICATIONS: None. FINDINGS: A standard profile single lumen PowerPort was implanted with the reservoir in the left inf raclavicular fossa and catheter tip in the superior vena cava. INDICATIONS: Patient is a 78-year-old gentleman with advanced stage lung cancer, currently receiving palliative radiation and chemotherapy. He was advised to undergo placement of a port to facilitate his therapy. TECHNIQUE: After informed consent, patient was taken to the operating room where he was sedated and monitored. Preoperative preparation included administration of 2 grams cefazolin intravenously withi n an hour of the incision, application of sequential calf compression boots. His anterior chest wall and neck had been clipped in the ASU, prepared with ChloraPrep solution and draped in the usual ster ile fashion. Lidocaine 1% plain was used for local infiltration anesthesia. Approximately 20 mL was used. Patient was placed in steep Trendelenburg position, and using a needle and syringe and an inf raclavicular approach, the left subclavian vein was accessed percutaneously after several passes. A guidewire was passed into the central venous circulation through this needle and location was confirm ed with fluoroscopy. The guidewire tract was dilated, following which the 8-[place] single lumen cath eter was then passed through the dilating sheath into the central venous circulation with fluoroscopy used to guide the catheter tip placement in the superior vena cava, near the left atrium. Patient w as taken out of Trendelenburg position and the exit site of the catheter was enlarged medially approx imately 3 cm. Hemostasis achieved with electrocautery. Subcutaneous pocket was created sufficient s ize to allow placement of the reservoir. The catheter was trimmed to appropriate length, attached to the reservoir, and the locking hub applied in the usual fashion to secure the catheter to the reserv oir body. The reservoir was then placed in the pocket and secured in place with two 3-0 nylon suture s, securing the reservoir body to the pectoralis muscle fascia. After hemostasis was assured, the wo und was irrigated with antibiotic solution containing 1 gram of Ancef per liter, following which woun d closure was accomplished in layers using continuous 3-0 Vicryl to reapproximate Scotty's fascia and 4-0 Monocryl for subcuticular skin closure, followed by Dermabond. Morales needle and syringe were us ed to access the port percutaneously. It was seen to aspirate blood and flush easily. The port was flushed with 10 mL of sterile saline. The procedure was then terminated without apparent complicatio ns. The patient left the procedure room in satisfactory condition. Followup portable upright chest x-ray is pending. Sponge and needle counts were correct. No drains were used. TD: 10/07/2019 10:32
--- NOTE | 2019-10-07 11:18 | XRAY Report ---
Reason: s/p port placement Procedure Date: 10/07/2019 Accession Number: [id number] / [id number] Procedure: XR - Chest 1 View X-Ray CPT Code: 72884 Final Report FULL RESULT: EXAM: CHEST RADIOGRAPHY EXAM DATE: 10/07/2019 10:36 AM. CLINICAL HISTORY: Portacatheter placement. COMPARISON: CHEST 2 VIEW 04/04/2019 9:27 AM CHEST W/ 07/12/2019 10:29 AM. TECHNIQUE: 1 view. FINDINGS: Lungs/Pleura: Diffuse micronodular changes are seen in the lungs again. There is no pneumothorax. Minor scarring/atelectasis in the left lung base is again seen. No significant effusion. Mediastinum: Left sided [id number] is seen terminating in the lower SVC region. The cardiomediastinal silhouette is unremarkable. Other: None. IMPRESSION: 1. Left-sided portacatheter terminates in the lower SVC. No pneumothorax. 2. Diffuse micronodular changes again seen scattered throughout the lungs. 3. Minor left basilar scarring/atelectasis again seen. RADIA
--- NOTE | 2019-10-17 14:05 | XRAY Report ---
Reason: PORT-A-CATH Procedure Date: 10/07/2019 Accession Number: [id number] / [id number] Procedure: FL - OR Port-A-Cath CPT Code: Final Report FULL RESULT: EXAM: FLUOROSCOPIC GUIDANCE EXAM DATE: 10/07/2019 10:09 AM. CLINICAL HISTORY: Port-A-Cath. COMPARISON: ABDOMEN/PELVIS W/ 09/09/2019 1:43 PM. FINDINGS: Images demonstrate a venous type catheter projecting over the paramediastinal region of the thorax. IMPRESSION: Fluoroscopic guidance provided for Port-A-Cath placement.. Total fluoroscopy time: 0.1 minutes.Number of images: 5. RADIA
== END 2019-10-07 07:20 | disposition home or self-care (01) ==
LOC: SDS 07:19
PROVIDERS: ATTEND Internal Medicine Gastroenterology
PROC: 02HV33Z Insertion of Infusion Device into Superior Vena Cava, Percutaneous Approach (ICD-10-PCS; 2019-10-07)
PROC: 0JH63WZ Insertion of Totally Implantable Vascular Access Device into Chest Subcutaneous Tissue and Fascia, Percutaneous Approach (ICD-10-PCS; principal; 2019-10-07 08:30)
DX: C34.91 Malignant neoplasm of unspecified part of right bronchus or lung (principal); R13.12 Dysphagia, oropharyngeal phase; E89.0 Postprocedural hypothyroidism; E11.9 Type 2 diabetes mellitus without complications; I10 Essential (primary) hypertension; E78.5 Hyperlipidemia, unspecified; M47.896 Other spondylosis, lumbar region; R10.13 Epigastric pain; Z79.891 Long term (current) use of opiate analgesic; Z79.4 Long term (current) use of insulin; Z79.51 Long term (current) use of inhaled steroids; Z79.82 Long term (current) use of aspirin; Z79.899 Other long term (current) drug therapy; Z99.81 Dependence on supplemental oxygen; Z93.1 Gastrostomy status; Z87.891 Personal history of nicotine dependence
CPT/HCPCS: 36561; C1788; J0690; J7120; 71045

== ENCOUNTER 2019-10-14 09:44 | Outpatient (CLI) | payer MEDICARE ==
--- NOTE | 2019-10-14 10:47 | XRAY Report ---
Reason: LUNG CA W/ METS Procedure Date: 10/14/2019 Accession Number: [id number] / [id number] Procedure: XR - Chest 2 View X-Ray CPT Code: 60294 Final Report FULL RESULT: EXAM: CHEST RADIOGRAPHY EXAM DATE: 10/14/2019 09:52 AM. CLINICAL HISTORY: Lung cancer with metastatic disease. COMPARISON: CHEST 1 VIEW 10/07/2019 10:19 AM CHEST W/ 07/12/2019 10:29 AM. TECHNIQUE: 2 views. FINDINGS: Lungs/Pleura: Again seen are innumerable bilateral pulmonary nodules, overall stable since prior. No new infiltrate or increasing effusion. Mediastinum: Heart and mediastinal contours are unremarkable. Other: Stable left port catheter. IMPRESSION: 1. Stable bilateral pulmonary nodules. No increasing infiltrate or effusion. RADIA
== END 2019-10-14 09:45 | disposition home or self-care (01) ==
LOC: DI 09:44
PROVIDERS: ATTEND Internal Medicine Hematology & Oncology
DX: C34.92 Malignant neoplasm of unspecified part of left bronchus or lung (principal)
CPT/HCPCS: 71046

== ENCOUNTER 2019-10-20 13:10 | Outpatient (CLI) | payer OTHER ==
--- NOTE | 2019-10-20 17:53 | CONSULTATION NOTE ---
Palliative Care Follow Up - Referral Referring Provider: Dr. Lashay Gould Time of Visit: [id number] Referral setting: Home Referral Reason: Pain of neoplastic origin/Met Lung Ca/Dysphagia - Information Sources Records reviewed: Previous records reviewed History/Review of Systems obtained from: Patient, Family ( Patricia at visit) Exam limitations: Clinical condition (patient unable to talk;) - History of Present Illness Update Brief HPI Update: This is a ying 78-year-old gentleman with metastatic lung cancer, who has severe disease progression in his right neck nodes, started on carboplatinum and pemetrexed med on 07/12 with addition of pembrolizumab. With worsening right neck adenopathy, worsening pain and difficulty swallowing as well as respiratory compromise, was initiated on radiation. He did receive concurrent chemotherapy weekly with carboplatinum and Taxol, with good response. He has finished his radiation over a week ago, is still having some throat tenderness and copious amounts of oral secretions. He reports his pain is specific to his neck and head have improved, but does describe pain overall and discomfort. He is quite irritable, he has had fluctuating blood sugars, unfortunately his Humalog is not coming for the next couple days. He does have sonorous breath sounds, partic ularly anteriorly with rhonchi radiating through lung uribe. His x-ray on 10/14 did not show any evidence of infectious or pleural effusion. He denies increased shortness of breath, and is mostly bothered by managing his secretions. With his dysphagia he is currently on tube feedings, does try to get at least 6 cartons a day, unfortunately intermittently has vomiting particularly when suctioning and causes gagging. This has improved some with the metoclopramide, he denies nausea previous to this. He has had difficulty sleeping, this is actually attributed when explored further related to his needing to awaken and manage his oral secretions. His symptoms of fatigue, deconditioning, and living with the anxiety even certainly have been wearing on both he and his . He is hoping for continued improvement as he gets further away from recovering from radiation. Social History - Living Situation Living arrangement: At home Living Situation: With spouse/s.o. Support System: He lives with his Patricia, they have been over 56 years, they are supported by their daughter Susan who helps with transportation and advocates for medical care. Patricia has had increasing caregiver burden, with tube feedings, assisting patient with management of secretions, and just anxiety of living with him with his difficulty with his airway. Medications/Allergies - Medications Home Medications: Ambulatory Orders Medication Instructions Recorded Confirmed Aspirin [Aspir 81] 81 mg PO DAILY 02/16/15 10/20/19 Felodipine [Felodipine ER] 10 mg PO DAILY 02/16/15 10/20/19 Metformin HCl [Glucophage] 1,000 mg PO BID MDD hold 02/16/15 10/20/19 raNITIdine [Zantac] 150 mg ORAL BID 02/16/15 10/20/19 Atorvastatin [Lipitor] 10 mg PO DAILY 12/30/18 10/20/19 Metoprolol Tartrate 100 mg PO BID 12/30/18 10/20/19 Levothyroxine Sodium 200 mcg PO DAILY 01/14/19 10/20/19 Insulin Glargine [Lantus Solostar] 29 units SUBQ QPM PRN MDD >250 06/22/19 10/20/19 lisinopriL [Lisinopril] 20 mg PO DAILY 06/22/19 10/20/19 Folic Acid 1 mg PO DAILY 07/12/19 10/20/19 fentaNYL [Fentanyl 12mcg patch] 12 mcg TOP .72 HOURS 08/23/19 10/20/19 oxyCODONE [Roxicodone] 5 - 15 mg PO Q3HR PRN 08/23/19 10/20/19 Metoclopramide HCl 5 mg PO TID PRN 09/08/19 10/20/19 Nystatin 5 ml PO QID MDD 10 days 09/08/19 10/20/19 Ondansetron Odt [Zofran] 4 mg TL Q6H PRN #10 tablet 09/09/19 10/20/19 Lidocaine/Prilocain 2.5% Cream 30 gm TOP ONCE 10/11/19 10/20/19 [Emla 2.5% Cream] Insulin Lispro [Humalog] 1 - 10 units SUBQ TID 10/20/19 10/20/19 - Allergies Allergies/Adverse Reactions: Allergies Allergy/AdvReac Type Severity Reaction Status Date / Time pollen extracts AdvReac Itching Verified 10/11/19 08:48 Review of Systems - Constitutional Constitutional: reports: Fatigue, Weight loss (152). denies: Fever, Chills - Ears, Nose & Throat Ears, Nose & Throat: reports: Hearing loss (improved), Nasal congestion, Dry mouth, Other (frequent and large amounts of oral secretions; unable to swallow; using suctioning every 2-3 hours) - Cardiovascular Cardiovascular: reports: Exertional dyspnea, Decr. exercise tolerance - Respiratory Respiratory: reports: Wheezing (rhonchi; upper airway with oral secretions), SOB at rest, SOB with exertion, Other (less) - Gastrointestinal Gastrointestinal: reports: Nausea, Vomiting (this am; often comes with gag reflux and suctioning), Bloating. denies: Constipation - Genitourinary Genitourinary: reports: Frequency, Urgency - Musculoskeletal Musculoskeletal: reports: Stiffness, Muscle weakness, Assistive devices (walker when out) - Integumentary Integumentary: reports: Dryness - Neurological Neurological: reports: General weakness, Slurred speech (mechanical) - Psychiatric Psychiatric: reports: Depression (irritablilty) - Endocrine Endocrine: reports: Diabetes type 2 (Lantus only; humulog to arrive next 2-3 days; high in evening to start TID dosing) - All Other Systems All Other Systems: reports: Other (limited as patient diffl with communication) Physical Exam - Vital Signs Temperature: 96.9 C Pulse Rate: 97 Respiratory Rate: 22 O2 Saturation: 96 (on 2 liters at rest) Blood Pressure: 122/54 - Physical Exam General Appearance: positive: Mild distress Eyes Bilateral: positive: Other (appears tired; some periorbital edema) ENT: positive: Other (some yellow coating on tongue; large amount clear yellow secretions) Neck: positive: Trachea midline, Other (tumor size on right decreased; nontender) Cardiovascular: positive: Regular rate & rhythm, Tachycardia Respiratory: positive: Diminished throughout, Rhonchi (sonorous breath sounds; secretions noted mostly anterior upper airways;). negative: No respiratory distress (presents with respiratory effort) Abdomen: positive: Soft, Other (PEG exit site without leakage) Skin: positive: Pallor, Dryness, Wound (new portacath incision well proximated; no swelling around area) Extremities: positive: No pedal edema Neurologic/Psychiatric: positive: Oriented x3, Weakness, Unintelligible speech, Flat affect Palliative Care - POLST Patient has POLST: Yes POLST Status: DNR, Selective Treatment Pain: Pain improved, Location (right neck down to fentanyl 12 mcg patch; no btp needed; reports overall discomfort though) Tiredness/Fatigue: Severe (7-10) Drowsiness/Sedation: Moderate (4-6) Nausea: Mild (1-3) Anorexia: Mild (1-3) Dyspnea: Moderate (4-6) Depression: Moderate (4-6) Anxiety: Mild (1-3) Feelings of wellbeing/Perceived Quality of Life: Poor, Acceptable, Worsening Sleep: Sleeps poorly (awakens to clear secretions;) Constipation: Yes, Opoid induced, Managed Performance Status: Patient does try to stay active, is walking in the house. He does appear quite thin and cachectic and deconditioned. His gait is somewhat ataxic. He does have some trouble getting from sitting to standing in the chair. He is able to manage his ADLs, his and he do his tube feedings. He still remains severely fatigued, but is improving with each day. - Palliative Care Discussion: Patient's understanding is that his tumor has responded to his concurrent radiation and chemotherapy. He is hopeful that the severity of his symptoms including his oral secretions, need for suctioning, and respiratory effort will improve. He is quite exhausted, he and his are struggling with feelings of being overwhelmed, he is very irritable. They are still quite anxious about the outcome of all of this, he is hoping for improvement in his symptom burden, to figure out what the next new normal is. Results - Lab Results Lab results reviewed: Yes Impression and Recommendations - Palliative Care Impression: This is a 78-year-old gentleman who has metastatic lung cancer with disease progression in his right neck, responded well to his concurrent radiation and chemotherapy. He still has residual tenderness, pain is less, but has overall discomfort as well as has high risk for aspiration pneumonia given his dysphagia and large amount of oral secretions. He has had hyperglycemia, and a trying to adjust to the tube feedings. Patient presents with moderate to high symptom burden, palliative care to continue provide support regarding pain and symptom management coordination of care and anticipatory guidance Recommendations/Counseling Done: 1. Pain of neoplastic origin. Patient's acute and escalating tumor related pain has improved with radiation and shrinkage of tumor. Patient is currently on fentanyl 12 mcg patch. They do feel like this is a good balance, he does though present with overall discomfort, was encouraged to use oxycodone particular at bedtime for discomfort. New prescription sent to [facility] for 10 patches. 2. Insomnia. Patient to start medication received from PCP, counseling provided regarding concern. Patient is able to go to sleep, but awakens related to management of his secretions. We did discuss in the context of his aspiration risk, patient does need to awaken and clear is secretions with suctioning. Patient is in agreement, and will hold off on initiating medication until more stable. 3. Diabetes type 2. Patient is having trouble with blood pressure control, and adjusting to his intermittent feedings. Humolog reordered from [facility] pharmacy. Has received sliding scale and instructions from asthma educator. Patient does continue to run somewhat high in the evenings, but also low in the a.m.'s. 4. Weight loss. Patient continues with 6 cartons, with decreased activity of radiation therapy, and home more recommended to try and push up to the 7 cartons daily. Patient is quite thin and cachectic, will does need increased nutrition for his increased metabolic needs and for healing. Patient had vomiting this morning, most likely related to gagging with suction, has been better with the initiation of the Reglan. Follow-up with peer to peer counseling regarding appeal regarding Jevity feedings. Patient does not have Medicare supplement, has spotdock, this is why it is not covered not because it is not a indicated. This was shared with patient and , reiterated information with daughter to be able to help access more cost effective distribution. 5. Dysphagia patient remains high risk for aspiration pneumonia. Patient with fairly sonorous and anterior rhonchi, he does feel like he is clearing his secretions. He did have a chest x-ray that was negative on 10/14. Patient and counseled regarding signs and symptoms of progressive respiratory concern, including fever, altered mental status, chills, or worsening weakness. Verbalized understanding. Instructed to access to ED or PCP depending on day of week. 6. Advanced care planning. Patient and remain feeling somewhat overwhelmed with her most recent journey through their illness, they are hoping for stabilization over the next couple weeks. Patient is quite fatigued, still feels current quality of life is acceptable particularly in the context understands historic acute side effects from his treatment. Counseling provided to normalize current psychosocial concerns particularly stress on relationship. Time Spent: 50 minutes with greater than 50% of this and in counseling and coordination of care follow-up with PCP, insurance company, counseling regarding pain and symptom management and prescription management.
== END 2019-10-20 13:11 | disposition home or self-care (01) ==
LOC: PC 13:10
PROVIDERS: ATTEND Nurse Practitioner Adult Health
DX: Z51.5 Encounter for palliative care (principal); G89.3 Neoplasm related pain (acute) (chronic); G47.00 Insomnia, unspecified; E11.65 Type 2 diabetes mellitus with hyperglycemia; R63.4 Abnormal weight loss; R13.10 Dysphagia, unspecified; R11.10 Vomiting, unspecified; R06.89 Other abnormalities of breathing; K59.03 Drug induced constipation; T40.2X5A Adverse effect of other opioids, initial encounter; C77.0 Secondary and unspecified malignant neoplasm of lymph nodes of head, face and neck; C34.90 Malignant neoplasm of unspecified part of unspecified bronchus or lung; Z79.899 Other long term (current) drug therapy; Z79.4 Long term (current) use of insulin; Z79.891 Long term (current) use of opiate analgesic; Z93.1 Gastrostomy status; Z66 Do not resuscitate
CPT/HCPCS: 99349

== ENCOUNTER 2019-10-26 10:23 | Outpatient (CLI) | payer MEDICARE ==
--- NOTE | 2019-10-26 11:17 | XRAY Report ---
Reason: LUNG CA W/METS Procedure Date: 10/26/2019 Accession Number: [id number] / [id number] Procedure: XR - Chest 2 View X-Ray CPT Code: 71684 Final Report FULL RESULT: EXAM: CHEST RADIOGRAPHY EXAM DATE: 10/26/2019 10:51 AM. CLINICAL HISTORY: Metastatic lung cancer COMPARISON: CHEST 2 VIEW 10/14/2019 9:48 AM ABDOMEN/PELVIS W/ 09/09/2019 1:43 PM CHEST W/ 07/12/2019 10:29 AM. TECHNIQUE: 2 views. FINDINGS: Lungs/Pleura: There is a small to moderate size, complex right dorsal lateral pleural effusion. There are diffuse nodules within the lungs. There is no evidence of pneumothorax. Mediastinum: Heart and mediastinal contours are unremarkable. Other: Left Port-A-Cath tip projects over the cavoatrial junction. IMPRESSION: 1. There is a small to moderate sized, complex right dorsal lateral pleural effusion. 2. There is relatively stable diffuse nodularity with the lungs. 3. There is no evidence of pneumothorax. RADIA
--- NOTE | 2019-10-27 13:44 | Ultrasound Report ---
Reason: LUNG CANCER WITH METS Procedure Date: 10/26/2019 Accession Number: [id number] / [id number] Procedure: US - Chest CPT Code: Final Report FULL RESULT: EXAM: CHEST ULTRASOUND EXAM DATE: 10/26/2019 11:55 AM. CLINICAL HISTORY: LUNG CANCER WITH METS. Assess for left pleural effusion prior to thoracentesis. COMPARISON: THORACENTESIS PUNCTURE 11/04/2018 9:19 AM. TECHNIQUE: Real-time scanning by the worship pastor was saved static images reviewed. FINDINGS: There is only a trace amount of left pleural fluid. On the right there is an organized collection with multiple septations and debris. No free right pleural effusion is seen. IMPRESSION: Thoracentesis not performed due to insufficient left pleural effusion. RADIA
== END 2019-10-26 10:24 | disposition home or self-care (01) ==
LOC: DI 10:23
PROVIDERS: ATTEND Nurse Practitioner Adult Health
DX: C34.92 Malignant neoplasm of unspecified part of left bronchus or lung (principal); J90 Pleural effusion, not elsewhere classified
CPT/HCPCS: 71046; 76604

== ENCOUNTER 2019-10-28 12:00 | Outpatient (CLI) | payer MEDICARE, OTHER ==
--- NOTE | 2019-11-09 12:43 | CONSULTATION NOTE ---
Palliative Care Follow Up - Referral Referring Provider: Dr. Lashay Gould Time of Visit: Referral setting: Home Referral Reason: FTT/Met Lung CA with right neck mass - Information Sources Records reviewed: Previous records reviewed History/Review of Systems obtained from: Patient, Family ( Patricia and daughter Susan present) Exam limitations: Clinical condition (patient with mild confusion; difficulty talking) - History of Present Illness Update Brief HPI Update: This is a 78-year-old gentleman with metastatic lung cancer who has severe disease progression in his right neck nodes, resulting in obstructive tumor, recently treated with radiation. He had a brief interval of increased pain relief but now worsening again, but continues with difficulty swallowing, as well as ongoing concern for respiratory compromise. His pain is been escalating through the week, I did increase his fentanyl to 25 mcg on 10/26, he has been using oxycodone 2 tabs but with increased sedation and lethargy. Patient's is feeling overwhelmed, through a series of unfortunate events he still had not started the Humalog insulin, it had been delivered but left in the refrigerator unopened. The first dose they gave was actually this morning, for blood sugar of 356 for 3 units with his a.m. feeding. I did get contacted 10/26 by the daughter after he had had a attempt for thoracentesis. He was found to have a small to moderate size complex right lateral effusion. In attempt to drain area the note reads "organized collection with multiple septations and debris". There was no identified right pleural effusion, and only trace on the left. He is continued to deteriorate, did review had decreased intake over 2 days, as well as poor fluid intake and presented with symptoms of dehydration as with increase lethargy had missed feedings and received less than needed fluids. Recommended go to the ED on 10/27 for fluid resuscitation as well as evaluation for possible aspiration pneumonia. They were able to push fluids, get caught up on his feedings, and he declined to go to the ED last night. In follow-up, patient today does appear quite thin and cachectic, he is still having moderate to severe pain, he does have some intermittent hallucinations but easily reoriented. He denies any fever or chills, but now presents with worsening hypoxia, this combined with his elevated white count on Thursday, worrisome for progressive symptoms of aspiration pneumonia. They have been able to get his fluids via PEG and reinitiate schedule of TF, and presents with dry mouth but no symptoms of candidiasis. Discussion related to goals of care, possible transition to hospice given patient's ongoing functional and cognitive decline. He is to have his pembrolizumab on Thursday, he would like to see if he improves over the weekend before making final decision. His blood sugars on repeat for me with initiation of training of daughter on BS/Insulin administration for lunch feeding, were 454 for me, 6 units Humalog given, as well as instruction on how to give the tube feedings by gravity drainage. Social History - Living Situation Living arrangement: At home Living Situation: With spouse/s.o. Support System: Patient's spouse Patricia is feeling quite overwhelmed and exhausted. She does have a lot of caregiving duties him patient often is resistant and agitated with her. Daughter Susan has been providing support and help, plans to initiate more support and provide oversight and instruction regarding his blood sugars over the weekend as well as track and he more aggressive with his fluids. had gotten quite overwhelmed, and had put the Humalog insulin in the fridge, has been there for quite a while, so have not been following program, patient continues to present with elevated blood sugars. Medications/Allergies - Medications Home Medications: Ambulatory Orders Medication Instructions Recorded Confirmed Aspirin [Aspir 81] 81 mg PO DAILY 02/16/15 10/29/19 Felodipine [Felodipine ER] 10 mg PO DAILY 02/16/15 10/29/19 Metformin HCl [Glucophage] 1,000 mg PO BID MDD hold 02/16/15 10/29/19 raNITIdine [Zantac] 150 mg ORAL BID 02/16/15 10/29/19 Atorvastatin [Lipitor] 10 mg PO DAILY 12/30/18 10/29/19 Levothyroxine Sodium 200 mcg PO DAILY 01/14/19 10/29/19 Insulin Glargine [Lantus Solostar] 29 units SUBQ QPM 06/22/19 10/29/19 lisinopriL [Lisinopril] 20 mg PO DAILY 06/22/19 10/29/19 Folic Acid 1 mg PO DAILY 07/12/19 10/29/19 fentaNYL [Fentanyl 12mcg patch] 12 mcg TOP Q72H 08/23/19 10/29/19 oxyCODONE [Roxicodone] 5 - 15 mg PO Q3HR PRN 08/23/19 10/29/19 Metoclopramide HCl 5 mg PO TID PRN 09/08/19 10/29/19 Lidocaine/Prilocain 2.5% Cream 1 applic TOP ONCE PRN 10/11/19 10/29/19 [Emla 2.5% Cream] Insulin Lispro [Humalog] 1 - 10 units SUBQ TID 10/20/19 10/29/19 Metoprolol Tartrate [Lopressor] 50 mg PO BID 10/29/19 10/29/19 Ondansetron Odt [Zofran] 8 mg TL Q8H PRN 10/29/19 10/29/19 Morphine Sulfate [Morphine Sulf 10 mg PO Q1H PRN #30 ml 10/31/19 Oral (Roxanol)] - Allergies Allergies/Adverse Reactions: Allergies Allergy/AdvReac Type Severity Reaction Status Date / Time pollen extracts AdvReac Itching Verified 10/25/19 09:42 Review of Systems - Constitutional Constitutional: reports: Fatigue, Malaise, Weakness, Weight loss. denies: Fever - Ears, Nose & Throat Ears, Nose & Throat: reports: Hearing loss, Dry mouth - Cardiovascular Cardiovascular: reports: Lightheadedness, Exertional dyspnea, Decr. exercise tolerance - Respiratory Respiratory: reports: SOB with exertion, Other (difficulty with oral secretions/) - Gastrointestinal Gastrointestinal: reports: Abdominal distention, Vomiting (intermittent), Bloating. denies: Constipation - Genitourinary Genitourinary: reports: Incontinence (related to confusion) - Musculoskeletal Musculoskeletal: reports: Back pain (right back/shoulder area), Stiffness, Limited range of motion, Muscle weakness - Integumentary Integumentary: reports: Dryness - Neurological Neurological: reports: General weakness, Dizziness, Numbness, Memory problems - Psychiatric Psychiatric: reports: Depression, Anxiety, Hallucinations - Endocrine Endocrine: reports: Diabetes type 2 (see HPI) - Hematologic/Lymphatic Hematologic/Lymphatic: reports: Anemia - All Other Systems All Other Systems: reports: Other (limited related patient poor recall) Physical Exam - Vital Signs Temperature: 96.4 C Pulse Rate: 76 Respiratory Rate: 20 O2 Saturation: 86 (on 2 liters; 93 on 4 liters) Blood Pressure: 102/58 (sitting; 92/52) - Physical Exam General Appearance: positive: Mild distress, Cachetic Eyes Bilateral: positive: Normal inspection ENT: positive: Dry mucous membranes, Other (no s/s candidiasis) Neck: positive: Other (swelling right side of neck/ radiation dryness/peeling) Cardiovascular: positive: Regular rate & rhythm Respiratory: positive: Other (decreased BS right side mid way up; upper airway rhonchi clear with patient clearing oral secretions; denies respiratory distress; but presents with respiratory effort with ambulation;) Abdomen: positive: Non-tender, Soft, Distended (with feeding) Skin: positive: Pallor, Dryness, Other (exit PEG sit with some dried crusting) Extremities: positive: No pedal edema Neurologic/Psychiatric: positive: Disoriented to time, Weakness, Depressed mood/affect, Flat affect Palliative Care - POLST Patient has POLST: Yes POLST Status: DNR, Selective Treatment Pain: Pain worsening, Location (Reports pain is located from his waist up to his nose. Identifies a more localized in his right chest area radiating up into his right shoulder. Tender to touch over the area, has been using 2 oxycodone with increased sedation. At visit did give him an oxycodone with Tylenol with less lethargy, and good pain relief. Currently on Fentanyl 25 mcg patch) Tiredness/Fatigue: Severe (7-10) Drowsiness/Sedation: Severe (7-10) Nausea: With vomiting (no nausea; gags or coughs after feeding and vomits) Anorexia: Moderate (4-6), Weight loss (153) Dyspnea: Severe (7-10), Comment (new progressive hypoxia) Depression: Mild (1-3) Anxiety: Moderate (4-6) Feelings of wellbeing/Perceived Quality of Life: Poor, Worsening Sleep: Variable sleep pattern Constipation: Yes, Opoid induced, Managed Performance Status: Patient with declining functional status, does need help from sitting to standing in recliner. His gait is quite unsteady, has had significant loss of muscle mass and has poor balance. Has not had any falls, but remains at high risk. His is assisting with all personal care and assisting with dressing. She is becoming quite overwhelmed and fatigued. - Palliative Care Discussion: Patient remains quite fragile, and continued to show both progressive physical, functional and and cognitive decline. Patient does recognize the seriousness of his illness, we did discuss at length though patient having difficulty parti cipating, transitioning to hospice. We discussed this can happen at any point in time, either when patient decides wants to focus on comfort only and spend time just with family at home, or if no longer further treatment options because of patient's fragile status. Daughter and felt this would be a helpful approach her worried about patient's prolonged suffering, and would appreciate increased support but recognize it is the patient's decision. Patient continue to hope for the best, though does recognize the seriousness of his illness, would like to see how he does over the weekend. We did discuss in the context of patient's worsening status, he is at high risk for progressive aspiration pneumonia, sequela of falls, and ongoing decline. Patient may access ED for worsening symptoms particularly in light of progressive symptom burden and hypoxia. Results - Lab Results Lab results reviewed: Yes Impression and Recommendations - Palliative Care Impression: This is 78-year-old gentleman with metastatic lung cancer, who continues to deteriorate. Patient presents with symptoms of aspiration pneumonia, dehydration, and worsening functional and cognitive decline. getting overwhelmed with increased care needs, family continues to struggle with goals of care. Palliative care continue provide support regarding pain and symptom management and anticipatory guidance. Recommendations/Counseling Done: 1. Aspiration pneumonia. In review of chart patient with elevated white count on Thursday, continues to worsen and has increased symptoms of hypoxia. DI had been unable to drain residual pleural effusion but identified issues. Patient's oxygen increased to 4 L, discussed with daughter ordered Levaquin 750 mg for 5 days at [facility]. 2. Dehydration. This is multifactorial including decreased intake, will go ahead and increase tube feedings from 6 to 7 boxes, reviewed need to increase fluid intake and track, goal for 2 .5 to 3 L of total fluids. Instructed to track, daughter will continue to provide support regarding pushing fluids and watching blood sugars over the weekend. Instructed on gravity feeding, versus push with syringe, patient has had intermittent vomiting suspect at speed given. Demonstrated techniques, as well as instructed to restart metoclopramide twice daily. 3. Diabetes type 2. Patient's blood sugars continue to be elevated, due to a series of unfortunate events did not receive Humalog this last week. Reviewed instructions provided, blood sugar elevated at time of visit prior to feeding, 6 units given. Teaching to daughter regarding how to do blood sugar and administer insulin. Instructions written out and will continue to monitor. 4. Pain of neoplastic origin. Patient recently with increased to Fentanyl 25 mcg patch, had been decreased previously as pain had improved with radiation. Patient not tolerating to oxycodone without lethargy, instructed to use 1 oxycodone with one Tylenol every 3 hours for uncontrolled pain. Medicated at visit with good response. 5. Advanced care planning. Patient continue to deteriorate, high risk and continued issues around aspiration aspiration pneumonia, dehydration, weight loss, functional and cognitive decline. Patient had refused ED evaluation for evaluation for acute symptoms, plan in place, will see if improves. Patient at high risk for hospitalization if continues to deteriorate. Discussed ongoing concerns including education regarding possible transition to hospice with hospice support, continuing chemotherapy/immunotherapy but this would only be possible if performance status improved. Patient wants to see how he does over the weekend, and we will reevaluate on Thursday. Time Spent: 90 minutes is greater than 50% done in counseling for management of symptoms, inst. on tubefeedings and fluids, family meeting regarding goals of care, and anticipatory guidance.
== END 2019-10-28 12:01 | disposition home or self-care (01) ==
LOC: PC 12:00
PROVIDERS: ATTEND Nurse Practitioner Adult Health
DX: Z51.5 Encounter for palliative care (principal); G89.3 Neoplasm related pain (acute) (chronic); R09.02 Hypoxemia; D72.829 Elevated white blood cell count, unspecified; E86.0 Dehydration; K59.03 Drug induced constipation; T40.2X5A Adverse effect of other opioids, initial encounter; E11.65 Type 2 diabetes mellitus with hyperglycemia; T38.3X6A Underdosing of insulin and oral hypoglycemic [antidiabetic] drugs, initial encounter; Z91.138 Patient's unintentional underdosing of medication regimen for other reason; C77.0 Secondary and unspecified malignant neoplasm of lymph nodes of head, face and neck; C34.90 Malignant neoplasm of unspecified part of unspecified bronchus or lung; K22.2 Esophageal obstruction; Z79.899 Other long term (current) drug therapy; Z99.81 Dependence on supplemental oxygen; Z93.1 Gastrostomy status; Z66 Do not resuscitate
CPT/HCPCS: 99350

== ENCOUNTER 2019-10-29 01:49 | Outpatient (CLI) | payer OTHER | END 2019-10-29 01:50 | disposition critical access hospital (66) | LOC: EMS 01:49 | PROVIDERS: ATTEND Surgery | DX: R06.02 Shortness of breath (principal); R41.0 Disorientation, unspecified; R73.09 Other abnormal glucose | CPT/HCPCS: A0425; A0429; A0999 ==

== ENCOUNTER 2019-10-29 02:05 | Inpatient (IN) | payer MEDICARE, OTHER ==
--- NOTE | 2019-10-29 02:13 | ED Physician Documentation ---
PD HPI DYSPNEA - Stated complaint Stated Complaint: SOA, CONFUSION, LUNG CA - History obtained from History obtained from: Patient, Family - History of Present Illness Timing - onset: Today Timing - onset during: Rest Timing - details: Gradual onset Pain level now: 0 Improved by: Inhaler/neb Worsened by: Exertion Associated symptoms: No: Fever Recently seen: Clinic - Additional information Additional information: BIBA for dyspnea, AMS. patient has lung CA stg 4. 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 he was seen [place] [facility] [place]. family says that based on elevated WBC and his dyspnea and overall fragile health, he was prescribed an antibiotic; family did not have time to fill the rx so he has started this yet. all day he has had increasing dyspnea and thus he was instructed to increase his oxygen nc from 2 to 4 l/min. medics arrived to find patient dyspneic; they assisted him with use of his own albuterol MDI (gave 4 puffs, as he had some difficulty in coordinating inspiration with delivery of the medication), and this resulted in significant improvement en route. he had 96% pulse on in field (on 4 liters)m but 88% when transferred from medics stretcher to our stretcher in ED. Review of Systems Constitutional: reports: Reviewed and negative Cardiac: reports: Reviewed and negative Respiratory: reports: Dyspnea, Cough GI: reports: Reviewed and negative PD PAST MEDICAL HISTORY - Past Medical History Cardiovascular: Hypertension Respiratory: Other (lung cancer, undergoing radiation treatments, and weekly chemotherapy) Neuro: None Endocrine/Autoimmune: Type 2 diabetes, HyPOthyroidism GI: GERD, Hiatal hernia, Other : None HEENT: Chronic sinusitis Psych: None Musculoskeletal: Osteoarthritis Derm: None - Past Surgical History General: Colonoscopy - Present Medications Home Medications: Ambulatory Orders Medication Instructions Recorded Confirmed Aspirin [Aspir 81] 81 mg PO DAILY 02/16/15 10/29/19 Felodipine [Felodipine ER] 10 mg PO DAILY 02/16/15 10/29/19 Metformin HCl [Glucophage] 1,000 mg PO BID MDD hold 02/16/15 10/29/19 raNITIdine [Zantac] 150 mg ORAL BID 02/16/15 10/29/19 Atorvastatin [Lipitor] 10 mg PO DAILY 12/30/18 10/29/19 Levothyroxine Sodium 200 mcg PO DAILY 01/14/19 10/29/19 Insulin Glargine [Lantus Solostar] 29 units SUBQ QPM 06/22/19 10/29/19 lisinopriL [Lisinopril] 20 mg PO DAILY 06/22/19 10/29/19 Folic Acid 1 mg PO DAILY 07/12/19 10/29/19 fentaNYL [Fentanyl 12mcg patch] 12 mcg TOP Q72H 08/23/19 10/29/19 oxyCODONE [Roxicodone] 5 - 15 mg PO Q3HR PRN 08/23/19 10/29/19 Metoclopramide HCl 5 mg PO TID PRN 09/08/19 10/29/19 Lidocaine/Prilocain 2.5% Cream 1 applic TOP ONCE PRN 10/11/19 10/29/19 [Emla 2.5% Cream] Insulin Lispro [Humalog] 1 - 10 units SUBQ TID 10/20/19 10/29/19 Metoprolol Tartrate [Lopressor] 50 mg PO BID 10/29/19 10/29/19 Ondansetron Odt [Zofran] 8 mg TL Q8H PRN 10/29/19 10/29/19 - Allergies Allergies/Adverse Reactions: Allergies Allergy/AdvReac Type Severity Reaction Status Date / Time pollen extracts AdvReac Itching Verified 10/25/19 09:42 - Social History Does the pt smoke?: No Smoking Status: Never smoker - POLST Patient has POLST: Yes PD ED PE NORMAL - Vitals Vital signs reviewed: Yes - General General: No acute distress, Well developed/nourished, Other (awake, alert, gestural responses that seem appropriate to question but nonverbal at baseline) - HEENT HEENT: PERRL, EOMI, Moist mucous membranes - Neck Neck: Supple, no meningeal sign, Other (right lateral neck with large, palpable and visible nodules and surrounding erythema and skin sloughing. the nodules are nontender) - Cardiac Cardiac: No murmur - Respiratory Respiratory: No respiratory distress (tachypneic shortly after srrival but this improved without specific intervention within 5-10 minutes (appeared to be related to movement to ED stretcher, correlating with transient drop in pulse ox)) - Abdomen Abdomen: Soft, Non tender - Derm Derm: Other (mild pallor) - Extremities Extremities: No edema - Neuro Neuro: No motor deficit, No sensory deficit PD ED PE EXPANDED - Cardiac Cardiac: Tachy - Respiratory Respiratory: Decreased breath sounds Results - Vitals Vitals: Oxygen O2 Source Nasal cannula Oxygen Flow Rate 4 - EKG (time done) No standard instances Rate: Rate (enter#) (120), Tachy Rhythm: Sinus tachycardia [place]: LAD Intervals: Normal RI QRS: Normal Ischemia: Normal ST segments, Q waves (V1, V2) - Labs Labs: Laboratory Tests 10/29/19 10/29/19 10/29/19 02:43 02:43 02:43 WBC 15.4 H RBC 3.10 L Hgb 8.7 L Hct 28.1 L MCV 90.6 MCH 28.1 MCHC 31.0 L RDW 16.7 H Plt Count 402 MPV 8.8 Neut # (Auto) 13.0 H Lymph # (Auto) 0.5 L Bea[place] # (Auto) 1.6 H Eos # (Auto) 0.1 Baso # (Auto) 0.1 Absolute Nucleated RBC 0.00 Nucleated RBC % 0.0 PT 17.1 H INR 1.5 H APTT 28.6 Sodium 137 Potassium 4.6 Chloride 88 L Carbon Dioxide 35 H Anion Gap 14.0 H BUN 18 Creatinine 0.5 L Estimated GFR (MDRD) 161 Glucose 168 H Calcium 8.6 Total Bilirubin 0.4 AST 20 ALT 21 Alkaline Phosphatase 76 B-Natriuretic Peptide Total Protein 6.7 Albumin 2.4 L Globulin 4.3 H Albumin/Globulin Ratio 0.6 L Lipase 20 L 10/29/19 02:43 WBC RBC Hgb Hct MCV MCH MCHC RDW Plt Count MPV Neut # (Auto) Lymph # (Auto) [place] # (Auto) Eos # (Auto) Baso # (Auto) Absolute Nucleated RBC Nucleated RBC % PT INR APTT Sodium Potassium Chloride Carbon Dioxide Anion Gap BUN Creatinine Estimated GFR (MDRD) Glucose Calcium Total Bilirubin AST ALT Alkaline Phosphatase B-Natriuretic Peptide 94 Total Protein Albumin Globulin Albumin/Globulin Ratio Lipase - Rads (name of study) chest xray Radiology: Prelim report reviewed, See rad report PD MEDICAL DECISION MAKING - ED course Complexity details: reviewed old records, reviewed results, re-evaluated patient, considered differential, d/w patient, d/w family ED course: drastic change in findings on CXR tonight vs. 2 days ago. there is a new, large right infiltrate. given the extent and rapidity of this process, will admit for IV antibiotics and further testing and treatment and needed within boundaries of patients wishes as well as those treatments and interventions that would have appropriate potential utility in the setting of his overall prognosis Departure - Departure Disposition: [facility] Clinical Impression: Pneumonia Condition: Fair Discharge Date/Time: 10/29/19 04:22
[2019-10-29 02:50] LABS: BASOPHILS # (AUTO) 0.1 10^3/uL (0.0-0.1); BASOPHILS % (AUTO) 0.4 %; EOSINOPHILS # (AUTO) 0.1 10^3/uL (0.0-0.7); EOSINOPHILS % (AUTO) 0.8 %; HGB - HEMOGLOBIN 8.7 g/dL (14.0-18.0); LYMPHOCYTES # (AUTO) 0.5 10^3/uL (1.5-3.5); MEAN CORPUSCULAR HEMOGLOBIN 28.1 pg (27.0-31.0); MEAN CORPUSCULAR VOLUME 90.6 fL (80.0-94.0); MEAN PLATELET VOLUME 8.8 fL (7.4-11.4); MONOCYTES # (AUTO) 1.6 10^3/uL (0.0-1.0); MONOCYTES % (AUTO) 10.1 %; NEUTROPHILS % (AUTO) 84.5 %; PLT - PLATELET COUNT 402 10^3/uL (130-450); RED CELL DISTRIBUTION WIDTH 16.7 % (12.0-15.0); WHITE BLOOD COUNT 15.4 x10^3/uL (4.8-10.8)
--- NOTE | 2019-10-29 02:53 | XRAY Report ---
Reason: dyspnea Procedure Date: 10/29/2019 Accession Number: [id number] / [id number] Procedure: XR - Chest 2 View X-Ray CPT Code: 15049 Final Report FULL RESULT: EXAM: CHEST RADIOGRAPHY EXAM DATE: 10/29/2019 02:45 AM. CLINICAL HISTORY: Dyspnea. COMPARISON: CHEST 2 VIEW 10/26/2019 10:49 AM CHEST 1 VIEW 10/07/2019 10:19 AM CHEST 2 VIEW 10/14/2019 9:48 AM CHEST 2 VIEW 04/04/2019 9:27 AM. TECHNIQUE: 2 views. FINDINGS IMPRESSION: 1. Multiple nodular opacities are again seen within the left lung, with increased size compared to the prior study. 2. There is a new large area of airspace disease within the right mid and lower lung. Adjacent right-sided pleural abnormality has also slightly increased. 3. Trace left effusion has developed. No definite pneumothorax. 4. Micronodular abnormalities within the upper lobes bilaterally are again seen. 5. Left-sided Port-A-Cath device tip projects at the lower SVC. 6. Normal heart size. RADIA
[2019-10-29 02:57] LABS: INR 1.5 (0.8-1.2); PT - PROTHROMBIN TIME 17.1 secs (9.9-12.6)
[2019-10-29 03:03] LABS: PARTIAL THROMBOPLASTIN TIME 28.6 secs (24.9-33.3)
[2019-10-29 03:04] LABS: ALBUMIN 2.4 g/dL (3.2-5.5); ALBUMIN/GLOBULIN RATIO 0.6 (1.0-2.2); BILIRUBIN,TOTAL 0.4 mg/dL (0.2-1.0); CALCIUM 8.6 mg/dL (8.5-10.3); CREATININE 0.5 mg/dL (0.6-1.2); TOTAL PROTEIN 6.7 g/dL (6.7-8.2)
[2019-10-29] MEDS ORDERED: SODIUM CHLORIDE 0.9% 1,000 ML IV STA (03:21)
[2019-10-29] MEDS ORDERED: SODIUM CHLORIDE FLUSH 0.9% 10 ML SYRINGE IVP PRN (03:58)
[2019-10-29] MEDS ORDERED: ACETAMINOPHEN 325 MG TABLET PO PRN (03:58)
[2019-10-29] MEDS ORDERED: ONDANSETRON 4 MG/2 ML VIAL IVP PRN (03:58)
[2019-10-29] MEDS ORDERED: fentaNYL 12 MCG PATCH TOP SCH (05:00)
[2019-10-29] MEDS: LACTATED RINGERS 1,000 ML IV SCH ×2 (05:19→15:59)
[2019-10-29] MEDS: AMPICILLIN/SULBACTAM 3 GM in SODIUM CHLORIDE 0.9% MINIBAG 100 ML IV SCH ×4 (05:19→23:48)
--- NOTE | 2019-10-29 06:44 | HISTORY & PHYSICAL EXAMINATION ---
Chief Complaint - Chief Complaint Chief Complaint: Confusion History of Present Illness - Admitted From Admitted From:: Home - History Obtained From Records Reviewed: Yes History obtained from: Patient, Family, ER Physician, EMR Exam Limitations: Patient has difficulty speaking secondary to radiation to his right neck. 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 His and daughter at bedside state that he had been in his usual state of health up until yesterday evening when he became more agitated. He is being followed by Nancy Leon of palliative care and he was prescribed an antibiotic yesterday for aspiration pneumonia but they have not yet picked it up. They state that yesterday he was hypoxic and his oxygen required to be increased to 4 L from 2 L at baseline. The patient states he feels somewhat short of breath but this is not really changed compared to his baseline. He denies any chest pain or fevers. He does complain of an occasional nonproductive cough. He does have difficulty swallowing and speaking secondary to radiation to the right neck from metastatic disease of his lung adenocarcinoma. He follows with Dr. Antunez here at the [facility]. Scheduled to receive immunotherapy this Thursday. The family states that there has been discussion with palliative care regarding transitioning to hospice as the patient has been declining. He gets all of his nutrition via PEG tube. He does not take anything by mouth except for the occasional ice chip. The patient reports feeling thirsty. He states he has been urinating well and denies decreased urine output. The family also stated that he was scheduled to get a thoracentesis this past week but after obtaining further imaging, yhis was not pursued as the collection in the right lung was felt to be an organized colle ction of debris with septations. The patient reports no recent episodes of vomiting although yesterday he did have episodes where he spat up some saliva. In the emergency department, he is found to be afebrile with temperature of 7.2 C. He was tachycardic with a heart rate of 123. He was tachypneic in the low 20s and saturating 92% on 4 L of oxygen. His labs reveal a white count of 15.4 which was increased compared to labs from a few days ago. His hemoglobin had also decreased to 8.7. Chest x-ray revealed a new large area in the right middle lower lung concerning for infiltrate. After discussion with the family and the patient, the patient was agreeable to admission. He does have a POLST form which states he is a DNR with limited interventions but he is agreeable to IV antibiotics and hospitalization. History - Past Medical History Cardiovascular: reports: Hypertension Respiratory: reports: Pneumonia, Other Neuro: reports: None Endocrine/Autoimmune: reports: Type 2 diabetes, HyPOthyroidism GI: reports: GERD, Hiatal hernia, Other : reports: None HEENT: reports: Chronic sinusitis Psych: reports: None Musculoskeletal: reports: Osteoarthritis Derm: reports: None MRSA Hx?: No - Past Surgical History General: reports: Colonoscopy - Family & Social History Family History: Mother: , Father: Family History Comment/Other: Family reports no known medical history to their knowledge. 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 He smoked in his early years but quit in the 60s. He does not currently drink alcohol. - POLST Patient has POLST: Yes Meds/Allgy - Home Medications Home Medications: Ambulatory Orders Medication Instructions Recorded Confirmed Aspirin [Aspir 81] 81 mg PO DAILY 02/16/15 10/25/19 Felodipine [Felodipine ER] 10 mg PO DAILY 02/16/15 10/25/19 Metformin HCl [Glucophage] 1,000 mg PO BID MDD hold 02/16/15 10/25/19 raNITIdine [Zantac] 150 mg ORAL BID 02/16/15 10/25/19 Atorvastatin [Lipitor] 10 mg PO DAILY 12/30/18 10/25/19 Metoprolol Tartrate 100 mg PO BID 12/30/18 10/25/19 Levothyroxine Sodium 200 mcg PO DAILY 01/14/19 10/25/19 Insulin Glargine [Lantus Solostar] 29 units SUBQ QPM PRN MDD >250 06/22/19 10/25/19 lisinopriL [Lisinopril] 20 mg PO DAILY 06/22/19 10/25/19 Folic Acid 1 mg PO DAILY 07/12/19 10/25/19 fentaNYL [Fentanyl 12mcg patch] 12 mcg TOP .72 HOURS 08/23/19 10/25/19 oxyCODONE [Roxicodone] 5 - 15 mg PO Q3HR PRN 08/23/19 10/25/19 Metoclopramide HCl 5 mg PO TID PRN 09/08/19 10/25/19 Nystatin 5 ml PO QID MDD 10 days 09/08/19 10/25/19 Ondansetron Odt [Zofran] 4 mg TL Q6H PRN #10 tablet 09/09/19 10/25/19 Lidocaine/Prilocain 2.5% Cream 30 gm TOP ONCE 10/11/19 10/25/19 [Emla 2.5% Cream] Insulin Lispro [Humalog] 1 - 10 units SUBQ TID 10/20/19 10/25/19 - Allergies Allergies/Adverse Reactions: Allergies Allergy/AdvReac Type Severity Reaction Status Date / Time pollen extracts AdvReac Itching Verified 10/25/19 09:42 Review of Systems - Constitutional Constitutional: reports: Fatigue, Weakness. denies: Fever, Chills, Poor appetite - Ears, Nose & Throat Ears, Nose & Throat: reports: Sore throat, Other (Dysphagia. Odynophagia.) - Cardiovascular Cariovascular: reports: Decr. exercise tolerance. denies: Chest pain - Respiratory Respiratory: reports: Cough, SOB at rest, SOB with exertion. denies: Sputum production - Gastrointestinal Gastrointestinal: denies: Abdominal pain, Nausea, Vomiting - Genitourinary Genitourinary: denies: Dysuria, Frequency, Urgency - Musculoskeletal Musculoskeletal: denies: Muscle pain - Integumentary Integumentary: reports: Other (Skin changes over right neck.). denies: Rash - Neurological Neurological: reports: General weakness. denies: Focal weakness - Hematologic/Lymphatic Hematologic/Lymphatic: reports: Anemia - All Other Systems All Other Systems: reports: Reviewed and negative Prior Level of Functionality: He lives with his and daughter at home. Physical activity is quite limited and he has poor performance status. He does ambulate on his own with assistance. Exam - Vital Signs Reviewed Vital Signs: Yes Vital Signs: Vital Signs x48h Temp Pulse Pulse Resp BP BP Pulse Ox 10/29/19 04:45 37.3 C 114 H 22 122/52 L 96 10/29/19 04:08 113 H 22 119/62 97 10/29/19 02:09 37.2 C 123 H 20 145/60 H 92 - Physical Exam Eyes Bilateral: positive: Normal inspection, Conjunctivae nml ENT: positive: ENT inspection nml Neck: positive: Lymphadenopathy (R), Other (There is an area of hypopigmented skin over the right neck.) Respiratory: positive: Other (He is tachypneic with diminished breath sounds bilaterally. Rhonchi noted in the right lower lobe.). negative: Breath sounds nml, Wheezes, Rales Cardiovascular: positive: No murmur, Tachycardia. negative: Systolic murmur, Diastolic murmur Abdomen: positive: Non-tender, No distention, Other (PEG tube in place. Site appears clean without erythema.). negative: Tenderness Skin: positive: Warm, Dry Extremities: positive: Full ROM, No pedal edema Neurologic/Psychiatric: positive: Oriented x3, Other (He has generalized weakness but no focal motor deficits.). negative: Disoriented to person, Disoriented to place Sepsis Event Note (H) - Evaluation Current Stage of Sepsis: Sepsis Possible source of Sepsis: positive: Pulmonary - Sepsis Criteria Sepsis Criteria: Recorded Heart Rate greater than 90 bpm, Recorded Respiratory Rate greater than 20, Respiratory: Increasing oxygen requirements, WBC count greater than 12,000 or less than 4000 Conclusion/Plan - Problem List (1) Aspiration pneumonia Conclusion/Plan: His chest x-ray today shows a new worsening right-sided infiltrate. The concern is for aspiration given the location of the infiltrate. He is more hypoxic than usual requiring 4 L of oxygen. His white count is also elevated at 15. After discussion with the family, the patient was agreeable to admission for IV antibiotics. We will place him on Unasyn IV and check blood cultures. Will attempt to wean his oxygen back to his baseline 2 L of oxygen. Qualifiers: Laterality: right Lung location: lower lobe of lung (2) Altered mental status Conclusion/Plan: He is now back to his baseline and is alert and oriented. Suspect his transient altered mental status was secondary to hypoxia. It may also be potentially related to his infection. There are no focal deficits on exam and therefore we will not obtain a CT of the head. We will continue to monitor his neurologic status. Qualifiers: Altered mental status type: transient alteration of awareness Qualified Code(s): R40.4 - Transient alteration of awareness (3) Acute on chronic respiratory failure with hypoxia Conclusion/Plan: His chronic respiratory failure secondary to his lung cancer. The increase in his oxygen requirements are likely secondary to the aspiration pneumonia. He is now requiring 4 L of oxygen but his saturations have improved to 90% from 92% on arrival to emergency department. His chest x-ray is concerning for an infiltrate. We will treat him with IV antibiotics and attempt to wean his oxygen. (4) Metastatic primary lung cancer Conclusion/Plan: He has metastatic lung adenocarcinoma of the lung and follows with Dr. Antunez at the [facility]. He is scheduled for Keytruda every 3 weeks. Chemotherapy has been postponed for the time being given his poor performance status. There was discussion of transitioning to hospice per the family due to his decline over the past few weeks. If he remains hospitalized through Thursday, will ask palliative care to see the patient and we will consider up hospice referral if the family is agreeable to this. We will resume his home oxycodone and fentanyl patch for pain control. (5) Anemia in chronic illness Conclusion/Plan: His hemoglobin is decreased at 8.7 and it has slowly been declining over the past 2 months. No evidence of bleeding at the moment. This is likely secondary to his malignancy. We will hold off on obtaining stool for occult blood given he may be transitioning to hospice and it would not spinning frame changer. We will keep him on chemical DVT prophylaxis as well as SCDs. Continue to trend his h emoglobin. I did asked the patient if he would want to transfusion his hemoglobin continued to decline and he stated he would NOT want a transfusion. (6) Type 2 diabetes mellitus treated with insulin Conclusion/Plan: He is on Lantus and Humalog as well as metformin at home. His blood glucose is currently less than 200. We will resume his home Lantus and place him on sliding scale. Will consult nutrition to assist with his tube feeds. (7) Hypertension Conclusion/Plan: He is on lisinopril and metoprolol at home. These will be resumed. - Lab Results Lab results reviewed: Yes Fish Bones: 10/29/19 02:43 10/29/19 02:43 - Diagnostic Imaging Results Diagnostic Imaging Results: positive: Final report reviewed - EKG Results EKG Interpreted Independently: Yes EKG Findings: Sinus tachycardia without ischemic changes. Core Measures - Anticipated LOS I expect patient to be DC'd or transferred within 96 hours.: Yes - Issues Hospital Issues and Management Plan: 78-year-old male with metastatic lung cancer who presents with aspiration pneumonia. He will be admitted for IV antibiotics. - DVT/VTE - Prophylaxis VTE/DVT Device ordered at admit?: Yes VTE/DVT Prophylaxis med ordered at admit?: Yes
[2019-10-29] MEDS: oxyCODONE 5 MG TABLET PEG PRN ×2 (08:35→22:07)
[2019-10-29] MEDS: LEVOTHYROXINE 100 MCG TABLET PEG SCH (08:37)
[2019-10-29] MEDS: INSULIN REGULAR HUMAN 300 UNIT/3 ML VIAL SUBQ SCH ×3 (08:37→18:17)
[2019-10-29] MEDS: SODIUM CHLORIDE FLUSH 0.9% 10 ML SYRINGE IVP SCH ×3 (08:39→23:50)
[2019-10-29] MEDS ORDERED: ASPIRIN CHEW 81 MG TABLET PEG SCH (09:00)
[2019-10-29] MEDS ORDERED: HEPARIN 5,000 UNIT/ML VIAL SUBQ SCH (09:00)
[2019-10-29] MEDS: METOPROLOL TARTRATE 50 MG TABLET PEG SCH ×2 (09:55→22:07)
--- NOTE | 2019-10-29 11:31 | PHARMACY PROGRESS NOTE ---
- Best Possible Medication History Admit Date and Time: 10/29/19 0358 Processed by: Pharmacy Medication History completed: Yes Patient Interview: Pt unable to participate Secondary Source(s): Physician records, Pharmacy records, Insurance records As the person ultimately responsible for medication therapy, providers are able to order a medication from an existing home medication list in [facility] via the "Reconcile Routine" prior to Confirmation of that medication by product support technician. Such practice is discouraged except when the physician, in their clinical judgment, deems that a medical need exists for a medication without regard to previous use.
[2019-10-29] MEDS ORDERED: INSULIN GLARGINE 300 UNIT/3 ML PEN SUBQ SCH (21:00)
[2019-10-30] MEDS ORDERED: AZITHROMYCIN INJ 500 MG in SODIUM CHLORIDE 0.9% 250 ML IV STA (00:15)
[2019-10-30] MEDS: INSULIN REGULAR HUMAN 300 UNIT/3 ML VIAL SUBQ SCH ×2 (01:14→06:20)
[2019-10-30] MEDS: LACTATED RINGERS 1,000 ML IV SCH (03:52)
[2019-10-30] MEDS: AMPICILLIN/SULBACTAM 3 GM in SODIUM CHLORIDE 0.9% MINIBAG 100 ML IV SCH (05:56)
[2019-10-30 06:10] LABS: BASOPHILS # (AUTO) 0.1 10^3/uL (0.0-0.1); BASOPHILS % (AUTO) 0.3 %; HGB - HEMOGLOBIN 7.9 g/dL (14.0-18.0); RED CELL DISTRIBUTION WIDTH 17.2 % (12.0-15.0)
[2019-10-30 06:13] LABS: EOSINOPHILS # (AUTO) 0.2 10^3/uL (0.0-0.7); EOSINOPHILS % (AUTO) 1.1 %; LYMPHOCYTES # (AUTO) 0.7 10^3/uL (1.5-3.5); LYMPHOCYTES % (AUTO) 4.9 %; MEAN CORPUSCULAR HEMOGLOBIN 27.3 pg (27.0-31.0); MEAN CORPUSCULAR HGB CONC 30.3 g/dL (32.0-36.0); MEAN CORPUSCULAR VOLUME 90.3 fL (80.0-94.0); MONOCYTES # (AUTO) 1.6 10^3/uL (0.0-1.0); MONOCYTES % (AUTO) 10.5 %; NEUTROPHILS # (AUTO) 12.3 10^3/uL (1.5-6.6); NEUTROPHILS % (AUTO) 82.2 %; PLT - PLATELET COUNT 367 10^3/uL (130-450); RED BLOOD COUNT 2.89 10^6/uL (4.70-6.10)
[2019-10-30 06:20] LABS: CREATININE 0.4 mg/dL (0.6-1.2); MAGNESIUM 1.7 mg/dL (1.7-2.8)
[2019-10-30] MEDS: LEVOTHYROXINE 100 MCG TABLET PEG SCH (06:42)
[2019-10-30 08:02] VITALS: BP 107/49
[2019-10-30] MEDS: SODIUM CHLORIDE FLUSH 0.9% 10 ML SYRINGE IVP SCH ×2 (08:23→18:06)
[2019-10-30] MEDS: METOPROLOL TARTRATE 50 MG TABLET PEG SCH ×2 (08:23→20:35)
--- NOTE | 2019-10-30 08:47 | PROVIDER PROGRESS NOTE ---
Subjective - Prog Note Date Prog Note Date: 10/30/19 Prog Note Time: 08:45 - Subjective Subjective: Between yesterday and today he is suddenly deteriorated. Needing more or more oxygen. He is up to 10 L. Exhausted. A little bit of gentle disagreement b etween and children about his overall prognosis. His daughter specifically is accepting of his poor prognosis and would prefer him not to be on tube feedings or anything that will prolong his life. However his is uncomfortable with that idea and asked us to at least give him tube feeds last night of one 8 ounce box. And to flush with water. All of his children are at the bedside. is at the bedside. He is not doing well. But he is awake, alert. Denies any specific pain. He is on fentanyl patch 12 mcg, and 1 oxycodone knocked him out yesterday. He is short of breath, struggling to breathe. Current Medications - Current Medications Current Medications: Active Medications Acetaminophen (Tylenol) 650 mg PO Q4HR PRN PRN Reason: Pain 1 to 4 Azithromycin (Zithromax) 250 mg PO HS ADAM Fentanyl (Duragesic) 1 patch TOP Q3D [facility] Last Admin: 10/29/19 05:18 Dose: 1 patch Lactated Ringer's (Lr) 1,000 mls @ 100 mls/hr IV .Q10H [facility] Last Admin: 10/30/19 03:52 Dose: 100 mls/hr Ampicillin Sodium/Sulbactam (Sodium 3 gm/ Sodium Chloride) 100 mls @ 200 mls/hr IV Q6HR [facility] Last Infusion: 10/30/19 07:00 Dose: Infused Insulin Glargine (Lantus Solostar) 20 unit SUBQ QPM [facility] Last Admin: 10/29/19 22:16 Dose: Not Given Insulin Human Regular (Humulin R) 1 - 9 unit SUBQ Q6HR [facility]; Protocol Last Admin: 10/30/19 06:20 Dose: Not Given Levothyroxine Sodium (Synthroid) 200 mcg PEG QDAC [facility] Last Admin: 10/30/19 06:42 Dose: 200 mcg Metoprolol Tartrate (Lopressor) 50 mg PEG BID [facility] Last Admin: 10/30/19 08:23 Dose: Not Given Ondansetron HCl (Zofran Inj) 4 mg IVP Q6HR PRN PRN Reason: Nausea / Vomiting Oxycodone HCl (Roxicodone) 10 mg PEG Q3HR PRN PRN Reason: PAIN Last Admin: 10/29/19 22:07 Dose: 10 mg Sodium Chloride (Normal Saline Flush 0.9%) 10 ml IVP PRN PRN PRN Reason: NEEDED PER PROVIDER ORDERS Sodium Chloride (Normal Saline Flush 0.9%) 10 ml IVP 0100,0900,1700 ADAM Last Admin: 10/30/19 08:23 Dose: Not Given Aspirin [Aspir 81] 81 mg PO DAILY 02/16/15 Felodipine [Felodipine ER] 10 mg PO DAILY 02/16/15 Metformin HCl [Glucophage] 1,000 mg PO BID MDD hold 02/16/15 raNITIdine [Zantac] 150 mg ORAL BID 02/16/15 Atorvastatin [Lipitor] 10 mg PO DAILY 12/30/18 Levothyroxine Sodium 200 mcg PO DAILY 01/14/19 Insulin Glargine [Lantus Solostar] 29 units SUBQ QPM 06/22/19 lisinopriL [Lisinopril] 20 mg PO DAILY 06/22/19 Folic Acid 1 mg PO DAILY 07/12/19 fentaNYL [Fentanyl 12mcg patch] 12 mcg TOP Q72H 08/23/19 oxyCODONE [Roxicodone] 5 - 15 mg PO Q3HR PRN 08/23/19 Metoclopramide HCl 5 mg PO TID PRN 09/08/19 Lidocaine/Prilocain 2.5% Cream [Emla 2.5% Cream] 1 applic TOP ONCE PRN 10/11/19 Insulin Lispro [Humalog] 1 - 10 units SUBQ TID 10/20/19 Metoprolol Tartrate [Lopressor] 50 mg PO BID 10/29/19 Ondansetron Odt [Zofran] 8 mg TL Q8H PRN 10/29/19 Objective - Vital Signs/Intake & Output Reviewed Vital Signs: Yes Vital Signs: Vital Signs x48h Temp Pulse Resp BP Pulse Ox 10/30/19 07:35 36.4 C L 91 20 107/49 L 96 10/30/19 04:03 36.9 C 92 20 114/50 L 98 Intake & Output: Intake & Output 0210/28/19 10/29/19 10/30/19 23:59 23:59 23:59 23:59 Intake Total 1700 1200 Output Total 675 550 Balance 1025 650 - Objective General Appearance: positive: Mild distress, Other (While he is not lethargic, he is struggling to keep his eyes open. Face mask on. He does track me with his eyes, nonverbal, and nods yes or shakes his head no to my questions. Holding on tight to his 's hands.) Eyes Bilateral: positive: PERRL ENT: positive: Dry mucous membranes (Mouth breathing) Neck: positive: No JVD Respiratory: positive: Chest non-tender, Wheezes, Rhonchi, Other (96% on a 10 L oxygen mask. Slight tachypnea at 20. Trying to talk makes him very short of breath so he just prefers to nod or shake his head) Cardiovascular: positive: Regular rate & rhythm. negative: Gallop/S4, Friction rub Abdomen: positive: Non-tender, No distention, Other (Quiet hypoactive bowel sounds) Skin: positive: Warm, Diaphoresis, Pallor Extremities: positive: Non-tender, Pedal edema Neurologic/Psychiatric: positive: CN's nml (2-12), Motor nml, Disoriented to time, Weakness (Severe and generalized. He cannot even lift his head above the bed) - Lab Results Fish Bones: 10/30/19 06:00 10/30/19 06:00 Other Labs: Lab Results x24hrs 10/30/19 10/30/19 Range/Units 06:00 06:00 WBC 15.0 H (4.8-10.8) x10^3/uL RBC 2.89 L (4.70-6.10) 10^6/uL Hgb 7.9 L (14.0-18.0) g/dL Hct 26.1 L (42.0-52.0) % MCV 90.3 (80.0-94.0) fL MCH 27.3 (27.0-31.0) pg MCHC 30.3 L (32.0-36.0) g/dL RDW 17.2 H (12.0-15.0) % Plt Count 367 (130-450) 10^3/uL MPV 9.0 (7.4-11.4) fL Neut # (Auto) 12.3 H (1.5-6.6) 10^3/uL Lymph # (Auto) 0.7 L (1.5-3.5) 10^3/uL [place] # (Auto) 1.6 H (0.0-1.0) 10^3/uL Eos # (Auto) 0.2 (0.0-0.7) 10^3/uL Baso # (Auto) 0.1 (0.0-0.1) 10^3/uL Absolute Nucleated RBC 0.00 x10^3/uL Nucleated RBC % 0.0 /100WBC Sodium 133 L (135-145) mmol/L Potassium 4.3 (3.5-5.0) mmol/L Chloride 89 L (101-111) mmol/L Carbon Dioxide 33 H (21-32) mmol/L Anion Gap 11.0 (6-13) BUN 13 (6-20) mg/dL Creatinine 0.4 L (0.6-1.2) mg/dL Estimated GFR (MDRD) 209 (>89) Glucose 102 H (70-100) mg/dL Calcium 8.0 L (8.5-10.3) mg/dL Magnesium 1.7 (1.7-2.8) mg/dL ABX Reporting Has patient been on IV antibiotics over the past 48 hours?: Yes Sepsis Event Note (H) - Evaluation Current Stage of Sepsis: Sepsis Possible source of Sepsis: positive: Pulmonary - Sepsis Criteria Sepsis Criteria: Recorded Heart Rate greater than 90 bpm, Recorded Respiratory Rate greater than 20, Respiratory: Increasing oxygen requirements, WBC count greater than 12,000 or less than 4000 Assessment/Plan - Problem List (1) Aspiration pneumonia Impression: He is a 78-year-old man who has metastatic lung cancer and presents with altered mental status and is found to have a new worsening right-sided infiltrate. The concern is for aspiration given the location of the infiltrate. On admission, more hypoxic than usual requiring 4 L of oxygen and now up to 10 L by oxymask. His white count was also elevated at 15.4 and not much change today with minimal change to 15.0 After discussion with the family, the patient was agreeable to admission for IV antibiotics. We placed him on Unasyn IV with azithromycin added last night. Blood cultures negative. For right now, no change in antibiotics. Day #2 Qualifiers: Laterality: right Lung location: lower lobe of lung (2) Altered mental status Conclusion/Plan: Back to his baseline and is alert and oriented. Suspect his transient altered mental status was secondary to hypoxia. It may also be potentially related to his infection. There are no focal deficits on exam and therefore we will not obtain a CT of the head. We will continue to monitor his neurologic status. Yesterday he was given an oxycodone for pain relief and he slept most the day because of it. This morning he is more sedated than he was yesterday. On fentanyl patch. Qualifiers: Altered mental status type: transient alteration of awareness Qualified Code(s): R40.4 - Transient alteration of awareness (3) Acute on chronic respiratory failure with hypoxia Conclusion/Plan: His chronic respiratory failure secondary to his lung cancer. The increase in his oxygen requirements are likely secondary to the aspiration pneumonia. He is now requiring 10 L of oxygen. He had initial improvement yesterday but then overnight has worsened again. (4) Metastatic primary lung cancer Conclusion/Plan: He has metastatic lung adenocarcinoma of the lung and follows with Dr. Antunez at the [facility]. He is scheduled for Keytruda every 3 weeks. Chemotherapy has been postponed for the time being given his poor performance status. There was discussion of transitioning to hospice per the family due to his decline over the past few weeks. We will resume his home oxycodone and fentanyl patch for pain control. , director of hospice, knows this patient. Has stopped by to say hello a couple of times. We have all recognize that he is deteriorating and not really responding to our treatment. Family is in the process of deciding, with the patient, if they are continuing treatment for pneumonia. However, he is deteriorating much more quickly than we anticipated and appears to be entering into that imminent phase of . He may be transition to comfort measures depending on how he and the family wants to handle this. (5) Anemia in chronic illness Conclusion/Plan: His hemoglobin is decreased at 8.7 and it has slowly been declining over the past 2 months. No evidence of bleeding at the moment. This is likely secondary to his malignancy. We will hold off on obtaining stool for occult blood given he may be transitioning to hospice and it would not blade changer. I did asked the patient if he would want to transfusion his hemoglobin continued to decline and he stated he would NOT want a transfusion. In reviewing how severe his illnesses, and he appears to be deteriorating, I did stop Lovenox for DVT prophylaxis. (6) Type 2 diabetes mellitus treated with insulin Conclusion/Plan: He is on Lantus and Humalog as well as metformin at home. His blood glucose is currently less than 200. We did resume his home Lantus and placed him on sliding scale and we consulted nutrition to assist with his tube feeds. This am, his has decided just to do the once at night tube feed. Family and he to meet and discuss where we are going from here with goals and will let me knw. (7) Hypertension Conclusion/Plan: He is on lisinopril and metoprolol at home. These will be resumed.
[2019-10-30] MEDS ORDERED: ACETAMINOPHEN 650 MG SUPP PR PRN (09:00)
[2019-10-30] MEDS ORDERED: METOCLOPRAMIDE 10 MG/2 ML VIAL IVP PRN (09:00)
[2019-10-30] MEDS ORDERED: CARBOXYMETHYLCELLULOSE OPHTH DROPS EACHEYE PRN (09:00)
[2019-10-30] MEDS ORDERED: ATROPINE 1% OPHTH DROPS 2 ML SL PRN (09:00)
[2019-10-30] MEDS ORDERED: LORazepam 2 MG/ML VIAL IVP PRN (09:00)
[2019-10-30] MEDS: MORPHINE SOL 10 MG/0.5 ML SYRINGE SL PRN ×2 (12:06→18:48)
[2019-10-30] MEDS ORDERED: AZITHROMYCIN 250 MG TABLET PO SCH (21:00)
[2019-10-31] MEDS: MORPHINE SOL 10 MG/0.5 ML SYRINGE SL PRN ×3 (03:34→13:00)
[2019-10-31] MEDS: SODIUM CHLORIDE FLUSH 0.9% 10 ML SYRINGE IVP SCH ×2 (06:39→08:06)
[2019-10-31] MEDS: METOPROLOL TARTRATE 50 MG TABLET PEG SCH (08:08)
--- NOTE | 2019-10-31 10:43 | PROVIDER PROGRESS NOTE ---
Subjective - Prog Note Date Prog Note Date: 10/31/19 Prog Note Time: 10:49 - Subjective Subjective: Yesterday afternoon family and patient decided transition to comfort measures. They feel that is inevitable and imminent. Would like to take him home. Objective - Vital Signs/Intake & Output Reviewed Vital Signs: Yes Intake & Output: Intake & Output 10/28/19 10/29/19 10/30/19 10/31/19 23:59 23:59 23:59 23:59 Intake Total 1700 1800 Output Total 675 800 850 Balance 1025 1000 -850 - Objective General Appearance: positive: No acute distress, Other (Very sleepy, but opens his eyes to voice. He answers yes no. Lips are dry. He does respond appropriately and that if you give them reassurance, answers questions, or give him medication the request he gestures with "both thumbs up" sign to indicate his approval.) Eyes Bilateral: positive: PERRL ENT: positive: Dry mucous membranes Neck: positive: No JVD Respiratory: positive: Chest non-tender, Rhonchi, Other (Any movement increases his respiratory rate and respiratory effort. Including speaking.) Cardiovascular: positive: Regular rate & rhythm. negative: Gallop/S4, Friction rub Abdomen: positive: Nml bowel sounds, No distention Skin: positive: Dry, Pallor Extremities: positive: Non-tender, Pedal edema Neurologic/Psychiatric: positive: CN's nml (2-12), Motor nml (Severe generalized weakness. He cannot even roll over by himself, or lift his head he is so weak), Disoriented to time - Lab Results Fish Bones: 10/30/19 06:00 10/30/19 06:00 Other Labs: Lab Results x24hrs 10/29/19 10/29/19 10/29/19 Range/Units 23:46 22:04 18:16 POC Whole Bld Glucose 143 H 157 H 90 (70 - 100) mg/dL ABX Reporting Has patient been on IV antibiotics over the past 48 hours?: Yes Sepsis Event Note (H) - Evaluation Current Stage of Sepsis: Sepsis Possible source of Sepsis: positive: Pulmonary - Sepsis Criteria Sepsis Criteria: Recorded Heart Rate greater than 90 bpm, Recorded Respiratory Rate greater than 20, Respiratory: Increasing oxygen requirements, WBC count gr eater than 12,000 or less than 4000 Assessment/Plan - Problem List (1) Aspiration pneumonia Impression: He is a 78-year-old man who has metastatic lung cancer and presents with altered mental status and is found to have a new worsening right-sided infiltrate. The concern is for aspiration given the location of the infiltrate. On admission, more hypoxic than usual requiring 4 L of oxygen and now up to 10 L by oxymask. His white count was also elevated at 15.4 and not much change today with minimal change to 15.0 After discussion with the family, the patient was agreeable to admission for IV antibiotics. We placed him on Unasyn IV with azithromycin added next day. Blood cultures negative. Yesterday was day 2 of treatment. In the afternoon his family and he spoke at length to about his prognosis. With the sudden increased requirement of oxygen, deterioration in respiratory status, transitioned to comfort measures only.He will be going home today. We are waiting for equipment to be delivered. Hospice will open him up at 2 PM today. Qualifiers: Laterality: right Lung location: lower lobe of lung (2) Altered mental status Conclusion/Plan: Back to his baseline and is alert and oriented. He is sleeping most of the day. Many family is at the bedside. They spent the night last night. Suspect his transient altered mental status was secondary to hypoxia. His confusion will return as he goes home and will not be able to get more than just what [facility] can give him. Confusion was potentially related to his infection and his fentanyl. There are no focal deficits on exam and therefore we will not obtain a CT of the head. 2/8 he was given an oxycodone for pain relief and he slept most the day because of it. Stable pain relief on his current fentanyl. Qualifiers: Altered mental status type: transient alteration of awareness Qualified Co de(s): R40.4 - Transient alteration of awareness (3) Acute on chronic respiratory failure with hypoxia Conclusion/Plan: His chronic respiratory failure secondary to his lung cancer. The increase in his oxygen requirements are likely secondary to the aspiration pneumonia. On day #1 he had improved with hypoxia but overnight on Day #2 he began requiring 10 L of oxygen. He is now transitioned to comfort measures so I anticipate increased hypoxia as we de-escalate his active therapy for pneumonia. (4) Metastatic primary lung cancer Conclusion/Plan: He has metastatic lung adenocarcinoma of the lung and follows with Dr. Antunez at the [facility]. He is scheduled for Keytruda every 3 weeks. Chemotherapy has been postponed for the time being given his poor performance status. There was discussion of transitioning to hospice per the family due to his decline over the past few weeks. We resumed his home oxycodone and fentanyl patch for pain control. , director of hospice, knows this patient. Has stopped by to say hello a couple of times over the weekend. We have all recognized that he is deteriorating and not really responding to our treatment. Yesterday afternoon, patient and family decided to transition him to comfort measures. As such I stopped antibiotics, blood draws, vital signs. He is only to get comfort medications such as morphine, Ativan, etc. Overnight he has needed 4 doses of Roxanol between yesterday and today. Still on his fentanyl patch. No use of Ativan or atropine at this time. He will be opened up to hospice today. We are making arrangements for delivery of equipment today. I will be giving a written prescription for Roxanol to be picked up by the family. We will give him his fentanyl patch before he leaves. And then hospice will take over on his medications from there. The case has been discussed with Nancy Leon, and Herbert Sanders. (5) Type 2 diabetes mellitus treated with insulin Conclusion/Plan: He is on Lantus and Humalog as well as metformin at home. His blood glucose is currently less than 200. We did resume his home Lantus and placed him on sliding scale and we consulted nutrition to assist with his tube feeds. Initially, his really wanted him to be on his tube feeds and she requested we give them at night. We did that for 1 night. Now that he is in comfort measures, we have stopped his Lantus, etc., and his glucose is in the 130s and 140s. (7) Hypertension Conclusion/Plan: He is on lisinopril and metoprolol at home. These were resumed.His blood pressure is been low at 107 systolic to 114 systolic. His lisinopril should be stopped. And metoprolol tapered off so he does not get rebound tachycardia.
--- NOTE | 2019-10-31 10:55 | Discharge Plan ---
Discharge Plan Problem Reviewed?: Yes Disposition: 50 Hospice/Home DC/Xfer Condition: Poor Prescriptions: Morphine Sulfate [Morphine Sulf Oral (Roxanol)] 10 mg PO Q1H PRN #30 ml PRN Reason: Pain/Dyspnea Activity Restrictions: Activity as Tolerated Shower Restrictions: Yes Driving Restrictions: Yes Health Concerns: You presented to our hospital with confusion, shortness of breath. This is in context of having metastatic lung cancer. Unfortunately your functional status has been deteriorating and you have been unable to take your treatment for your lung cancer. We found your confusion and shortness of breath due to low oxygen and right lung pneumonia. You were initially treated with IV antibiotics, oxygen, but have continued to do poorly. Plan of Treatment: You and your family have spoken at length to , director of hospice. After thoughtful discussion, you have decided to transition to hospice. Care Goals: To be at home with your loved ones for the remaining time you have left. Support through hospice. No Smoking: If you smoke, Please STOP! Call for help. Follow-up with: Chen Gould DO [Primary Care Provider] -
--- NOTE | 2019-10-31 13:35 | DISCHARGE SUMMARY ---
"Discharge Summary Admit Date: 10/29/19 Discharge Date: 10/31/19 Discharging Provider: Merry Condon MD Primary Care Provider: Chen Gould MD Code Status: Do Not Attempt Resuscitation Condition at Discharge: Poor Discharge Disposition: 50 Hospice/Home DC/Xfer - DIAGNOSES Discharge Diagnoses with Status of Each Condition: 1. Aspiration pneumonia 2. Metabolic encephalopathy 3. Acute on chronic respiratory failure with hypoxia 4. Adenocarcinoma of the lung with metastatic disease, stage IV 5. Anemia of chronic illness 6. Type 2 diabetes mellitus, without complications, on long-term use of insulin 7. 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 His and daughter at bedside state that he had been in his usual state of health up until yesterday evening when he became more agitated. He is being followed by Nancy Leon of palliative care and he was prescribed an antibiotic yesterday for aspiration pneumonia but they have not yet picked it up. They state that yesterday he was hypoxic and his oxygen required to be increased to 4 L from 2 L at baseline. The patient states he feels somewhat short of breath but this is not really changed compared to his baseline. He denies any chest pain or fevers. He does complain of an occasional nonproductive cough. He does have difficulty swallowing and speaking secondary to radiation to the right neck from metastatic disease of his lung adenocarcinoma. He follows with Dr. Antunez here at the [facility]. Scheduled to receive immunotherapy this Thursday. The family states that there has been discussion with palliative care regarding transitioning to hospice as the patient has been declining. He gets all of his nutrition via PEG tube. He does not take anything by mouth except for the occasional ice chip. The patient reports feeling thirsty. He states he has been urinating well and denies decreased urine output. The family also stated that he was scheduled to get a thoracentesis this past week but after obtaining further imaging, yhis was not pursued as the collection in the right lung was felt to be an organized c ollection of debris with septations. The patient reports no recent episodes of vomiting although yesterday he did have episodes where he spat up some saliva. In the emergency department, he is found to be afebrile with temperature of 7.2 C. He was tachycardic with a heart rate of 123. He was tachypneic in the low 20s and saturating 92% on 4 L of oxygen. His labs reveal a white count of 15.4 which was increased compared to labs from a few days ago. His hemoglobin had also decreased to 8.7. Chest x-ray revealed a new large area in the right middle lower lung concerning for infiltrate. After discussion with the family and the patient, the patient was agreeable to admission. He does have a POLST form which states he is a DNR with limited interventions but he is agreeable to IV antibiotics and hospitalization. Past Medical History Cardiovascular: reports: Hypertension Respiratory: reports: Pneumonia, Other Neuro: reports: None Endocrine/Autoimmune: reports: Type 2 diabetes, HyPOthyroidism GI: reports: GERD, Hiatal hernia, Other : reports: None HEENT: reports: Chronic sinusitis Psych: reports: None Musculoskeletal: reports: Osteoarthritis Derm: reports: None MRSA Hx?: No - CONSULTS | PROCEDURES Procedures: 1. Chest x-ray with multiple nodular opacities within the left lung, increased in size to prior studies. New large area of airspace disease in the right mid and lower lung with adjacent right-sided pleural abnormality that is increased. Micronodular abnormalities within the upper lobes. Port-A-Cath device in place. Normal heart size. 2. Blood cultures negative after 2 days - HOSPITAL COURSE Hospital Course: The patient was placed on empiric antibiotic therapy for pneumonia. His transie nt encephalopathy had improved by the time he was transferred to [facility]. We felt that it was the hypoxia and illness of pneumonia that caused him to be temporarily confused. He was on Unasyn and azithromycin. He was unable to bring up any sputum that would help us and blood cultures were negative. In the first 24 hours he improved with his acute on chronic respiratory failure/hypoxia and was requiring less and less oxygen. But then that night he deteriorated and was up to 10 L of oxygen mask to maintain O2 sats above 94%. Initially we had him n.p.o. except for ice chips for comfort of his mouth. But his was very concerned that we were not feeding him and asked to please give him tube feeds the second night of admission. The patient was already contemplating transitioning to hospice. With this request for tube feeds are brought up the conversation of his goals. Giving a patient tube feeds did not prolong life in a meaningful way according to studies. We explained that lack of p.o. intake or water intake was not necessarily painful. He would get sleepier and sleepier and more tired. The family and patient met with , director of hospice. After those conversations they decided to transition him to hospice since he was not responding to empiric treatment for pneumonia. As such he was discharged in stable condition with a poor prognosis. All of his medications were discontinued except for Lopressor, fentanyl, Roxanol, Ativan, atropine drops. Temperature was 36.4, pulse 91, blood pressure was now 107/49 with respirations 20 and he was 96% saturated on a 10 L oxygen mask. He was 5 feet 11 inches tall weight 72.5 kg. He was a very pale, fatigued gentleman who looks much older than his stated age. At rest respiratory sounds were that of gurgling rhonchi even before you put a stethoscope on them. At times he would have tachypnea but for the most part he would be comfortable at rest. Speaking resulted in profound fatigue and he started resorting to just a simple thumbs up or a simple thumbs down to communicate his desires to us. He was able to nod his head and shake his head yes or no but trying to sit up was exhausting beyond his ability to do so. He has coarse bilateral lung rhonchi. A regular rate and rhythm. And abdomen is hypoactive, benign. Extremities starting to develop edema. Greater than 30 minutes was spent coordinating discharge. - ALLERGIES Allergies/Adverse Reactions: Allergies Allergy/AdvReac Type Severity Reaction Status Date / Time pollen extracts AdvReac Itching Verified 10/25/19 09:42 - MEDICATIONS Home Medications: Ambulatory Orders Medication Instructions Recorded Confirmed Aspirin [Aspir 81] 81 mg PO DAILY 02/16/15 10/29/19 Felodipine [Felodipine ER] 10 mg PO DAILY 02/16/15 10/29/19 Metformin HCl [Glucophage] 1,000 mg PO BID MDD hold 02/16/15 10/29/19 RX: raNITIdine [Zantac] 150 mg ORAL BID 02/16/15 10/29/19 Atorvastatin [Lipitor] 10 mg PO DAILY 12/30/18 10/29/19 RX: Levothyroxine Sodium 200 mcg PO DAILY 01/14/19 10/29/19 Insulin Glargine [Lantus Solostar] 29 units SUBQ QPM 06/22/19 10/29/19 RX: lisinopriL [Lisinopril] 20 mg PO DAILY 06/22/19 10/29/19 RX: Folic Acid 1 mg PO DAILY 07/12/19 10/29/19 RX: oxyCODONE [Roxicodone] 5 - 15 mg PO Q3HR PRN 08/23/19 10/29/19 fentaNYL [Fentanyl 12mcg patch] 12 mcg TOP Q72H 08/23/19 10/29/19 RX: Metoclopramide HCl 5 mg PO TID PRN 09/08/19 10/29/19 Lidocaine/Prilocain 2.5% Cream 1 applic TOP ONCE PRN 10/11/19 10/29/19 [Emla 2.5% Cream] Insulin Lispro [Humalog] 1 - 10 units SUBQ TID 10/20/19 10/29/19 Metoprolol Tartrate [Lopressor] 50 mg PO BID 10/29/19 10/29/19 Ondansetron Odt [Zofran] 8 mg TL Q8H PRN 10/29/19 10/29/19 Morphine Sulfate [Morphine Sulf 10 mg PO Q1H PRN #30 ml 10/31/19 Oral (Roxanol)] - LABS Result Diagrams: 10/30/19 06:00 10/30/19 06:00 - SEPSIS Current Stage of Sepsis: Sepsis Possible source of Sepsis: Pulmonary Sepsis Criteria: Recorded Heart Rate greater than 90 bpm, Recorded Respiratory Rate greater than 20, Respiratory: Increasing oxygen requirements, WBC count greater than 12,000 or less than 4000"
== END 2019-10-31 13:27 | disposition hospice, home (50) | DRG 177 ==
LOC: EDUNIT# → ED 02:05 → MS3 03:58
PROVIDERS: ADMIT Internal Medicine; ATTEND Specialist
DX: J18.9 Pneumonia, unspecified organism (principal); J69.0 Pneumonitis due to inhalation of food and vomit; G93.41 Metabolic encephalopathy; J96.21 Acute and chronic respiratory failure with hypoxia; C34.90 Malignant neoplasm of unspecified part of unspecified bronchus or lung; C79.9 Secondary malignant neoplasm of unspecified site; E11.9 Type 2 diabetes mellitus without complications; I10 Essential (primary) hypertension; E03.9 Hypothyroidism, unspecified; R13.19 Other dysphagia; Y84.2 Radiological procedure and radiotherapy as the cause of abnormal reaction of the patient, or of later complication, without mention of misadventure at the time of the procedure; D63.0 Anemia in neoplastic disease; K21.9 Gastro-esophageal reflux disease without esophagitis; K44.9 Diaphragmatic hernia without obstruction or gangrene; J32.9 Chronic sinusitis, unspecified; R47.9 Unspecified speech disturbances; M19.90 Unspecified osteoarthritis, unspecified site; Z66 Do not resuscitate; Z51.5 Encounter for palliative care; Z93.1 Gastrostomy status; Z99.81 Dependence on supplemental oxygen; Z79.82 Long term (current) use of aspirin; Z79.4 Long term (current) use of insulin; Z79.891 Long term (current) use of opiate analgesic; Z79.899 Other long term (current) drug therapy; Z87.891 Personal history of nicotine dependence
CPT/HCPCS: 36415; 71046; 80048; 80053; 83690; 83735; 83880; 85025; 85610; 85730; 87040; 93005; 99284; 99285; A9270; J1815; J7120

== ENCOUNTER 2019-10-31 13:25 | Outpatient (CLI) | payer MEDICARE, OTHER | END 2019-10-31 13:26 | disposition hospice, home (50) | LOC: EMS 13:25 | PROVIDERS: ATTEND Surgery | DX: C34.90 Malignant neoplasm of unspecified part of unspecified bronchus or lung (principal); Z74.01 Bed confinement status; Z99.81 Dependence on supplemental oxygen | CPT/HCPCS: A0425; A0428 ==